=== PATIENT | male | born 1955 | race Caucasian/White ===

== ENCOUNTER 2016-05-08 16:53 | Inpatient (IN) | payer MEDICAID, MEDICARE ==
[~2016-05-08] VITALS: Ht 175.3 cm; Wt 64.8 kg
[2016-05-08] VITALS (14 sets, daily range): BP systolic 85–120; BP diastolic 32–69; PULSE 77–93; RESP 15–19; O2SAT 95–100
[~2016-05-08 16:53] MED LIST: ASPI-973 PO; CARV6.252 PO; DOCU-41 PO; FERR-83 PO; FLUO20CA25 PO; LIP40 PO; LISI-571 PO; METO25TA6 PO; MOME13HF2 IH; NITR0.4T SL; NYST1000 PO; PANT40TA3 PO; QUET50TA PO; SENN-133 PO; WARF5TAB7 PO
--- NOTE | 2016-05-08 17:00 | ED.REPORT ---
HPI-Dyspnea / Wheezing Date of Service May 08, 2016 ED Provider: Dr. Peck Pt is a 60 y/o male anticoagulated on Coumadin w/ a hx of CHF, CAD, HTN, hyperlipidemia, valve replacements, presenting to the ED via EMS due to SOB onset 1300 today. He states he is chronically short of breath. He has been generally weak for 7 days and has been unable to get out of bed. He was found to be hunched over by EMS without a radial pulse. He was initially hypotensive in the 70s but improved to 118 after normal saline. He c/o associated dyspnea on exertion, numbness of the fingertips which is new. He denies CP, bloody or melena stool. He does not smoke. Nursing Notes Stated Complaint: SOB Nursing Notes Reviewed: Yes Allergies: Coded Allergies: No Known Allergies (Verified Allergy, Unknown, 01/24/16) Scheduled Aspirin (Aspirin) 81 Mg Tablet 81 MG PO DAILY Atorvastatin (Lipitor) 40 Mg Tablet 40 MG PO HS Carvedilol (Carvedilol) 6.25 Mg Tablet 6.25 MG PO BID Ferrous Sulfate (Ferrous Sulfate) 325 Mg Tablet 325 MG PO BID Fluoxetine (Fluoxetine) 20 Mg Capsule 60 MG PO DAILY Lisinopril (Lisinopril) 5 Mg Tablet 5 MG PO DAILY Metoprolol Tartrate (Metoprolol Tartrate) 25 Mg Tablet 25 MG PO BID Nystatin (Nystatin) 100,000 Unit/1 Ml Oral.susp 100,000 UNIT PO QID Use 3 mL at a time swish and spit 4 times a day Pantoprazole DR (Pantoprazole DR) 40 Mg Tablet.dr 40 MG PO DAILY Quetiapine Fumarate (Seroquel) 50 Mg Tablet 50 MG PO BID Warfarin Sodium (Warfarin Sodium) 5 Mg Tablet 7.5 MG PO DAILY Scheduled PRN Docusate Sodium (Colace) 100 Mg Capsule 100 MG PO BID PRN PRN For Constipation Nitroglycerin SL (Nitrostat) 0.4 Mg Tab.subl 0.4 MG SL Q5MIN PRN PRN For Chest Pain Sennosides (Senna) 8.6 Mg Tablet 8.6 MG PO HS PRN PRN For Constipation Miscellaneous Medications Mometasone/Formoterol (Dulera 100 Mcg/5 Mcg Inhaler) 13 Gm Hfa.aer.ad 13 GM IH General Time Seen by MD: 17:00 Chief Complaint Shortness of breath Hx Obtained From: Patient, EMS Arrived By: Ambulance Sudden in Onset?: No Onset Occurred: 1 - 4 hours ago Symptom Duration: Since onset Severity: Current: No pain currently Severity: Maximum: No pain Recent Healthcare: Recent doctor visit, Recent testing, Previous diagnosis, Prior workup Similar Sx Previous: Yes Past Medical History Past Medical History Notes: PCP: Mary Pineda M.D. Past Medical History Angiodysplasia CHF Coronary artery disease Hep C Hypertension Mitral regurgitation Hyperlipidemia Atrial flutter Lymphoma, at age 16. Treated with chemotherapy. 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 Neurologic: Reports: Numbness Physical Exam Initial Vital Signs Vital Signs (First) Date Time Temp Pulse Resp B/P Pulse Ox O2 Delivery O2 Flow Rate FiO2 05/08/16 17:04 36.2 86 18 95/52 95 Room Air Initial VS: Reviewed, Vital signs abnormal Head / Eyes: Atraumatic, Normocephalic, PERRL ENT: Mucous membranes moist, Conjunctiva normal, No scleral icterus Abdomen / GI: Soft, Non-tender, No guarding, No rebound, No distention Extremities: Vascular intact, Neuro intact, No swelling, No tenderness Skin: Warm, Dry, No cyanosis Psychiatric: Mood/affect normal, Behavior normal, Normal thought content General/Constitutional: Awake, Alert Distress / Hydration: Positive: Distress moderate Appearance / Presentation: Positive: Frail, Icteric (mild) Thin Neck: Atraumatic, Supple, Full range of motion Respiratory / Chest: Atraumatic, Breath sounds NL, Breath sounds = bilat, No respiratory distress, No rales, No rhonchi, No wheezing, No retractions, No stridor, No chest tenderness, No chest wall deformity, No crepitus Cardiovascular: Heart rate NL, Regular rhythm, Cap refill not delayed, Peripheral circulation NL Prominent click of the aortic valve Neurologic: Oriented X3, Speech NL, No motor deficits, No sensory deficits Rectum / Perineum: Atraumatic Black melena stool Interpretation & Diagnostics Lab Results Interpretation Result Diagram: 05/08/16 1718 05/08/16 1718 Test 05/08/16 17:18 05/08/16 18:32 White Blood Count 15.6th/mm3 (3.8-10.1) Red Blood Count 2.43mil/mm3 (4.40-5.80) Hemoglobin 7.3g/dL (13.8-17.2) Hematocrit 22.4% (41.0-50.0) Mean Corpuscular Volume 92.2fL (81-100) Mean Corpuscular Hemoglobin 30.0pg (27.0-35.0) Mean Corpuscular Hemoglobin Concent 32.6% (32.0-37.0) Red Cell Distribution Width 16.0% (12.3-15.4) Platelet Count 212bil/L (150-400) Neutrophils (%) (Auto) 84.5% (40-74) Lymphocytes (%) (Auto) 8.0% (14-46) Monocytes (%) (Auto) 6.0% (4-12) Eosinophils (%) (Auto) 0.9% (0-5) Basophils (%) (Auto) 0.3% (0-3) Prothrombin Time 54.8sec (8.1-12.5) Prothromb Time International Ratio 4.96ratio Sodium Level 137mEq/L (134-144) Potassium Level 6.0mEq/L (3.5-5.2) Chloride Level 104mEq/L (97-108) Carbon Dioxide Level 18mmol/L (18-29) Blood Urea Nitrogen 49mg/dL (8-27) Creatinine 1.63mg/dL (0.76-1.27) Estimat Glomerular Filtration Rate 46mL/min (>59) Glucose Level 106mg/dL (60-99) Calcium Level 8.5mg/dL (8.5-10.1) Magnesium Level 2.2mg/dL (1.6-2.6) Total Bilirubin 0.6mg/dL (0.0-1.2) Aspartate Amino Transf (AST/SGOT) 22U/L (0-50) Alanine Aminotransferase (ALT/SGPT) 15U/L (0-44) Alkaline Phosphatase 60U/L (25-160) Total Creatine Kinase 61U/L (21-232) Creatine Kinase MB 2.1ng/mL (0.0-10.4) Creatine Kinase MB % 3.4% (0.0-5.0) Troponin T < 0.010ug/L (0.0-0.011) Pro-B-Type Natriuretic Peptide 2170pg/mL (0-210) Total Protein 6.1g/dL (6.4-8.4) Albumin 3.4g/dL (3.4-5.0) Hold Purple Top Tube Received (Received) ECG Interpretation ECG Interpretation: Sinus rhythm rate 86 Prolonged WA interval Right bundle branch block Inferior Infarct, old Time: 17:36 Interpreted by: ED physician Normal ECG Interpretation: No acute ischemic changes X-Ray Chest Interpretation View: Portable, 1 view Interpretation / Wet Read by: Wet read ED physician NL X-Ray Chest Findings: No infiltrate, No acute disease Re-Eval/Medical Decision Med Decision/Clinical Course GI bleeding with a history of both upper and lower sources, hep C, congestive heart failure and 2 mechanical heart valves on warfarin. Initial hemoglobin 7.3, INR 4.96. Patient was mildly hypotensive that seem to respond to IV fluids. Patient will be transfused in the ER 2 units PRBCs and 6 units of FFP. Additionally the patient is mildly hyperkalemic with a potassium of 6.0 and mild peaked T waves. IV calcium, IV dextrose and insulin and IV fluids were given. Patient will be admitted. GI is consulted who agrees to see the patient. Source of Hx: Old records Summary of Info: Echo 03/19/16: Interpretation Summary The left ventricle is normal in size, wall thickness, and systolic function without any focal wall motion abnormalities. Left ventricular systolic function is normal. The ejection fraction is estimated to be 55-60%. There are no obvious focal wall motion abnormalities noted but poor endocardial definition reduces the sensitivity for the detection of such. The right ventricle is normal in size and function. The right ventricular systolic pressure is estimated at 38 mmHg assuming a right atrial pressure of 8 mm Hg. The left atrium is severely dilated. Right atrial size is normal. There is a mechanical mitral valve. The mean mitral valve pressure gradient is 10 mmHg. This has increased since prior study. There is a mechanical aortic valve. The prosthetic aortic valve is well- seated. The peak aortic velocity is 339 cm/sec. The peak aortic velocity on the previous exam was 275 cm/sec. There is no other significant valvular heart disease. The aortic root is normal size. Re-Evaluation/Progress : Time of Eval: 17:45 Re-Evaluation/Progress Note: Pt rechecked. Informed pt of need for admission due to GI bleed. Pt understands and agrees with plan for admission. All questions addressed. Consultation #1: Referral / Consult Name: Shyam Ayala MD Call Returned at: 18:10 Strand Buncher Fine Wire: Agrees with eval, Agrees with plan Note: Discussed case with GI. Recommends to keep patient NPO. He will scope him in the morning. His INR must be under 1.6. He agrees with reversing Coumadin. He requests we start bowel prep tonight. Consultation #2: Referral / Consult Name: Goyo Mcfadden MD Consulted With: Hospitalist Call Returned at: 18:20 Strand Buncher Fine Wire: Will see patient, Agrees with eval, Agrees with plan, Accepts admit Counseled Regarding: Diagnosis, Lab results, Need for admission Discharge & Departure Impression: Primary Impression: Upper GI bleed Additional Impressions: Hyperkalemia Warfarin-induced coagulopathy Disposition: ADMITTED TO HOSPITAL Discharge Condition All VS Reviewed: Yes Condition: Stable Referrals: Mary Pineda MD (PCP) Crit Care Except Billable Proc Time Spent: 75-104 minutes Services Performed: Patient management by me, Time spent at bedside, Reviewing test results, Reviewing imaging, Discussing patient care, Documentation in record Critical Care Notes: See ANGEL Scrbud Attestation Portions of this note were transcribed by William Van. I, Dr. Peck personally performed the history, physical exam and medical decision-making; I reviewed and confirmed the accuracy of the information in the transcribed note. Signed by Burak Anne, 05/08/16 - [id number] copies to: Mary Pineda MD, Timothy S DO May 08, 2016 17:00 WILLIAM VAN May 08, 2016 17:10 Noel Yancey May 08, 2016 17:20
[2016-05-08] MEDS ORDERED: 0.9% Sodium Chloride 1,000 ML IV ONE ×2 (17:09→18:23)
[2016-05-08] MEDS ORDERED: Ondansetron 2 mg/mL 2 mL Inj IVPUSH ONE (17:10)
[2016-05-08 17:23] LABS: BASOPHILS % (AUTO) 0.3 % (0-3); EOSINOPHILS % (AUTO) 0.9 % (0-5); Mean Corpuscular Volume 92.2 fL (81-100); NEUTROPHILS % (AUTO) 84.5 % (40-74); Platelet Count 212 bil/L (150-400)
[2016-05-08] MEDS ORDERED: Pantoprazole 4 mg/mL 10 mL Inj IVPUSH ONE (17:40)
[2016-05-08] MEDS ORDERED: Octreotide Inj 500 MCG in 0.9% Sodium Chloride 100 ML IV ONE (17:40)
[2016-05-08] MEDS ORDERED: Pantoprazole Inj 80 MG, Pharmacy To Mix 1 EA in 0.9% Sodium Chloride 80 ML IV ONE ×2 (17:40)
[2016-05-08 17:57] LABS: Creatine Kinase 61 U/L (21-232); Magnesium 2.2 mg/dL (1.6-2.6)
[2016-05-08 18:00] LABS: TROPONIN T < 0.010 ug/L (0.0-0.011)
[2016-05-08 18:14] LABS: INR 4.96 ratio
[2016-05-08] MEDS ORDERED: PEG/Electrolytes 4,000 mL Solution PO ONE (18:15)
[2016-05-08] MEDS ORDERED: Calcium GLUCOnate 10% (Gm) 1 Gm/10 mL Inj IVPUSH PRN (18:25)
[2016-05-08] MEDS ORDERED: Insulin Human REGular-Omnicell 100 Unit/mL IV ONE (18:25)
[2016-05-08] MEDS ORDERED: Phytonadione (Adult) 10 MG in Dextrose 5%-Pha MIX 50 ML IV ONE (18:25)
[2016-05-08] MEDS ORDERED: Furosemide 10 mg/mL 2 mL Inj IVPUSH ONE (18:35)
--- NOTE | 2016-05-08 18:47 | PCM.HPMED ---
Subjective Date of Service May 08, 2016 Primary Provider: Admitting Physician: Primary Care Physician: Mary Pineda MD Attending Physician: Chief Complaint: SOB onset 1300 today. He states he is chronically short of breath. History of Present Illness: Pt is a 60 y/o male anticoagulated on Coumadin w/ a hx of CHF, CAD, HTN, hyperlipidemia, valve replacements, presenting to the ED via EMS due to SOB onset 1300 today. He states he is chronically short of breath. He has been generally weak for 7 days and has been unable to get out of bed. He was found to be hunched over by EMS without a radial pulse. He was initially hypotensive in the 70s but improved to 118 after normal saline. He c/o associated dyspnea on exertion, numbness of the fingertips which is new. He denies CP, bloody or melena stool. He does not smoke. Review of Systems: Gen.: No fevers chills weight loss weight gain, he actually was thinking about how happy he was just a day ago that he was feeling good Eyes: no visual disturbances or blurring vision HEENT: No nose/throat drainage, no pain in ears or throat, no hearing loss Lymph: No lymph nodes noted Cardiac: No chest pain, orthopnea, PND, palpitations , pedal edema or sudden onset shortness of breath just today Pulmonary: no cough, wheezing or bringing up of sputum GI: No anorexia nausea vomiting blood or black in the stoolfamily history she noted some loose stool where he is normally constipated : no dysuria hematuria urinary frequency or decrease in urine output Musculoskeletal: Joint swelling no joint pain no new muscle aches or back pain Neuro: No syncope, seizures no loss of consciousness no new focal weakness, numbness or tingling Psychiatric: New new anxiety insomnia or depression Endocrine: No new heat or cold intolerances polyuria or polydipsia Hematology: No lymphadenopathy or easy bleeding or bruising noted skin: No new rashes, stasis dermatitis Allergies Coded Allergies: No Known Allergies (Verified Allergy, Unknown, 05/08/16) Home Medications Aspirin (Aspirin) 81 Mg Tablet 81 MG PO DAILY Atorvastatin (Lipitor) 40 Mg Tablet 40 MG PO HS Carvedilol (Carvedilol) 6.25 Mg Tablet 6.25 MG PO BID Ferrous Sulfate (Ferrous Sulfate) 325 Mg Tablet 325 MG PO BID Fluoxetine (Fluoxetine) 20 Mg Capsule 60 MG PO DAILY Lisinopril (Lisinopril) 5 Mg Tablet 5 MG PO DAILY Metoprolol Tartrate (Metoprolol Tartrate) 25 Mg Tablet 25 MG PO BID Nystatin (Nystatin) 100,000 Unit/1 Ml Oral.susp 100,000 UNIT PO QID Use 3 mL at a time swish and spit 4 times a day Pantoprazole DR (Pantoprazole DR) 40 Mg Tablet.dr 40 MG PO DAILY Quetiapine Fumarate (Seroquel) 50 Mg Tablet 50 MG PO BID Warfarin Sodium (Warfarin Sodium) 5 Mg Tablet 7.5 MG PO DAILY Scheduled PRN Docusate Sodium (Colace) 100 Mg Capsule 100 MG PO BID PRN PRN For Constipation Nitroglycerin SL (Nitrostat) 0.4 Mg Tab.subl 0.4 MG SL Q5MIN PRN PRN For Chest Pain Sennosides (Senna) 8.6 Mg Tablet 8.6 MG PO HS PRN PRN For Constipation PMH 1. Status post aortic and mitral valve replacement, [facility], in 2012 on warfarin. 2. Coronary disease with one-vessel bypass grafting in 2012. 3. Hypertension. 4. Congestive heart failure, chronic, systolic per records with ejection fraction 45% to 50%. 5. Hepatitis C. 6. Chronic iron-deficiency anemia with angiodysplasia as above. 7. Depression. 8. Atrial flutter. 9. 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 10. 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 11. History of IV heroin use. 12. History of alcohol abuse. 13. Hyperlipidemia. 14. Gastroesophageal reflux disease. 15. Chronic kidney disease of uncertain baseline. 16. Left upper lobe pneumonia with sepsis, acute kidney injury, and pancytopenia in September 2013. PAST SURGICAL HISTORY: 1. Coronary artery bypass grafting with aortic and mitral valve replacement [facility] in 2012. 2. Tonsillectomy. 3. Right eye surgery for lymphoma. ALLERGIES: None. HOME MEDICATIONS: Uncertain. SOCIAL HISTORY: The patient lives with his mother. He is independent with ADLs and ambulation. He is on disability for his medical issues. He does not smoke or use alcohol. He smokes marijuana occasionally. FAMILY HISTORY: Mother has diabetes. Social History Hx Alcohol Use: No (NOT IN 8 YEARS) Hx Substance Use: No Hx Tobacco Use: Yes (1/2 pack/day) Smoking Status: Current Every Day Smoker Exam Vital Signs Vital Sign - Last Date Time Temp Pulse Resp B/P Pulse Ox O2 Delivery O2 Flow Rate FiO2 05/08/16 17:04 36.2 86 18 95/52 95 Room Air Exam Gen.- A+ O 3 no apparent distress.thin male lying in [facility] Eyes- open conjunctiva clear, pupils equal nonicteric, subconjunctival hemorrhage on the left external ENT- ears normal, nose normal Neck- supple/trach midline, JVD 3 cm CVS- RRR no murmur or gallop, there is quiet expiratory murmur and 2 mechanical heart sounds S1 and S2 Lungs CTA no accessory muscle usage no evidence of respiratory distress GI- NABS/NT soft Musc- moving 4 ,no obvious deformity Neuro- cranial nerves II through XII intact to gross examination, nonfocal Skin- warm and dry Psych- pleasant and appropriate,becomes a bit tearful when he tells a story Lab and Diagnostics Labs LFTs wnl trop <0.010, bnp 2170 Result Diagram: 05/08/16 1718 05/08/16 1718 X-Rays, CTs and MRIs CXR No acute cardio pulmonary disease. 12-lead ECG EKG sinus rate 86, old inf infarct [id number] perosnally reviewed Cardiac Echo Impressions 03/19/16 The left ventricle is normal in size, wall thickness, and systolic function without any focal wall motion abnormalities. Left ventricular systolic function is normal. The ejection fraction is estimated to be 55-60%. There are no obvious focal wall motion abnormalities noted but poor endocardial definition reduces the sensitivity for the detection of such. The right ventricle is normal in size and function. The right ventricular systolic pressure is estimated at 38 mmHg assuming a right atrial pressure of 8 mm Hg. The left atrium is severely dilated. Right atrial size is normal. There is a mechanical mitral valve. The mean mitral valve pressure gradient is 10 mmHg. This has increased since prior study. There is a mechanical aortic valve. The prosthetic aortic valve is well- seated. The peak aortic velocity is 339 cm/sec. The peak aortic velocity on the previous exam was 275 cm/sec. There is no other significant valvular heart disease. The aortic root is normal size. Assessment & Plan 60yo male with acute/chronic dyspnea found to be profoundly anemic. No overt events of melena/hematochezia but patient has a history of angiodysplasia and blood loss from the gut that has yet to be identified. 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 If there is evidence of ongoing blood loss I would recommend a CT agio or tagged RBC scan will to see where the contrast or blood is leaking into the bowel. For now I think the patient has been placed on an octreotide drip presumably with consultation with GI. I would place the patient on a PPI drip however IV twice a day is considered sufficient do not know how to place it within this computer system. unfortunate soul who was treated with high dose radiation for Hodgkin's lymphoma in childhood which caused valvular disease causing the valve replacement. 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 Not from IV drug abuse. And now is having recurrence of Hodgkin's lymphoma in his groin. He is tearful because he is having multiple episodes with his GI bleeding and elevated warfarin levels that he is having difficulty controlling. I wonder if he might not be a candidate for a factor X A inhibitor. I would consult with cardiology to see if this is even an option with mechanical valves but given that they seem to be superior to warfarin I think is probably a possibility. GIB- source has been historically cryptic, patient on pantoprazole IV at least twice a day if not on a drip, and apparently has been placed on an octreotide drip hopefully with the direction of GI is they are more familiar with the source of bleeding Acute blood loss anemia-patient transfused already but I will go ahead and check anemia studies and give IV iron TRINIDAD/CKD3- baseline 1.3, gentle hydration as the patient's already in heart failure although not presumably symptomatic Hyperkalemia- K+ 6.0, we will follow this level and determine whether further intervention needs to be done other than IV fluids. Patient got a dose of Kayexalate in the emergency room Acute diastolic CHF-by numbers but if the patient's on room air continued simply to follow thisCurry utilize Lasix when the patient becomes dyspneic as he probably will as we volume in him Mech AVR?MVR- INR goal 2.5-3.5, patient is not actively bleeding I would place the patient on a heparin drip while not therapeutic on Coumadin HCV-I see no contraindication to continuing the patient's normal home medication Prophylaxis-DVT SCDs only other anticoagulation is contraindicated but will be resumed as soon as possible due to valves, GI patient is on PPI Disposition patient's a full code from home Patient's hemoglobin dropped while being transfused for from 7 or 8-5.4 I am going ahead and ordering 2 more units of blood to in reserve and some more FFP. Will not be surprised if he needs a little bit of furosemide in the interval but I am not ordering it automatically as the patient is already hypotensive when fluids are stopped. He says he has got mouth pains when he is transfused for unclear reasons so I went ahead and prescribed him some morphine this evening. Goyo Mcfadden MD May 08, 2016 18:46
[2016-05-08] MEDS ORDERED: 0.9% Sodium Chloride 500 ML IV ONE (18:50)
--- NOTE | 2016-05-08 19:00 | DRSVH ---
PROCEDURE: X-RAY CHEST ONE VIEW, PORTABLE ([id number]) INDICATIONS: dyspnea TECHNIQUE: One view of the chest was acquired. COMPARISON: [facility], CT, CT CHEST WO CON, 04/02/2016, 14:53. [facility], CR, XR CHEST 1VW (PORTABLE), 01/23/2016, 22:19. FINDINGS: Surgical changes and devices: Sternotomy and prosthetic heart valve. Lungs and pleura: No pleural effusions or pneumothorax. Lungs are clear. Mediastinum: Mediastinal contours appear normal. Heart size is normal. Bones and chest wall: No suspicious bony lesions. Overlying soft tissues appear unremarkable. IMPRESSION: No acute cardio pulmonary disease. Dictated by: Suly Cao M.D. on 05/08/2016 at 18:58 Approved by: Suly Cao M.D. on 05/08/2016 at 18:58
[2016-05-08] MEDS: Dextrose 5% 0.9% NaCl 1,000 ML IV SCH (19:40)
[2016-05-08] MEDS ORDERED: RES30 PO (20:30)
[2016-05-08] MEDS ORDERED: ACLI400A2 INH (20:30)
[2016-05-08] MEDS ORDERED: RANI150C4 PO (20:30)
[2016-05-08] MEDS ORDERED: SOFO1TAB PO (20:30)
[2016-05-08] MEDS ORDERED: FUR20 PO (20:30)
[2016-05-08] MEDS ORDERED: MOME13HF INH (20:30)
[2016-05-08] MEDS ORDERED: TRAZ-118 PO (20:30)
[2016-05-08] MEDS ORDERED: WARF5TAB PO (20:30)
[2016-05-08] MEDS: 0.9% Sodium Chloride 1,000 ML IV SCH (21:19)
[2016-05-08] MEDS ORDERED: Polyethylene Glycol (PEG) 17 Gm Powder PO PRN (21:20)
[2016-05-08] MEDS ORDERED: Ondansetron 2 mg/mL 2 mL Inj IVPUSH PRN (21:20)
[2016-05-08] MEDS ORDERED: Alum-Mag Hydrox-Simeth 30 mL Suspension PO PRN (21:20)
[2016-05-08] MEDS ORDERED: 0.9% Sodium Chloride 250 ML ONE (21:27)
[2016-05-08 22:54] LABS: INR 1.6 ratio
[2016-05-09] VITALS (33 sets, daily range): BP systolic 62–179; BP diastolic 38–80; PULSE 78–107; RESP 14–22; O2SAT 95–100
[2016-05-09] MEDS: Sodium Chloride LOK Flush 10 mL Syringe IVFLUSH SCH ×4 (00:32→20:57)
[2016-05-09] MEDS ORDERED: 0.9% Sodium Chloride 250 ML IV SCH ×4 (01:20→11:20)
--- NOTE | 2016-05-09 02:26 | CONS ---
[address] [address] CONSULTATION REPORT PATIENT: ZOILA ALFRED : 1955 MR#: [id number] ADMIT: 05/08/2016 JOB ID: [id number] DATE OF SERVICE: 05/08/2016 REASON FOR CONSULTATION: Melena and anemia. HISTORY OF PRESENT ILLNESS: A 60-year-old male with a history of CHF, hepatitis C, currently on Epclusa for the past three weeks, history of hypertension, coronary artery disease, AVMs on colonoscopy in the sigmoid colon and ascending colon, mitral regurgitation, lymphoma at the age of 16, currently on chemotherapy, AFlutter, hyperlipidemia, CABG in the past, multiple valve replacements, on Coumadin, who presents here for consultation for melena and anemia. Patient felt short of breath and came to the emergency department on May 08, 2016. The patient was found to have a hemoglobin of 7.3 upon admission. His prior hemoglobin on April 27, 2016, was 10.9. Patient's white count was 15.6, hematocrit 22, MCV 92 and platelet count 212. PT of 54.8, INR of 4.96. BUN of 49 with a creatinine 1.6. The patient's proBNP was 2170. The patient states that he had seen melenic stools for the past one week. The patient states he had an EGD in 2012 that was normal. I have no records. The patient had a colonoscopy that was performed on December 08, 2014, which showed AVMs in the ascending colon and in the sigmoid colon for which he underwent APC. The patient denies family history of colon cancer, inflammatory bowel disease, or celiac disease. 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 PAST MEDICAL HISTORY: As stated above. PAST SURGERIES: As stated above. MEDICATIONS: At home: Aspirin, Lipitor, carvedilol, ferrous sulfate, fluoxetine, lisinopril, metoprolol, nystatin, pantoprazole 40 mg daily, Seroquel, Coumadin. ALLERGIES: No known drug allergies. SOCIAL HISTORY: He smokes every day. No current IV drug use, in recovery with THC, but has a history of drug use in the past. No alcohol per the patient. 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 FAMILY HISTORY: Negative for colon cancer, inflammatory bowel disease, or celiac disease. REVIEW OF SYSTEMS: The patient denies headache, blurred vision, nausea, vomiting. Positive for shortness of breath. No chest pain, abdominal pain, skin rash, joint pain. PHYSICAL EXAMINATION: Vital signs upon presentation: Temperature is 36.3, pulse 86, blood pressure 120/69, respiratory rate 16, satting 97% on room air. General: In no acute distress. Head: No scars. Eyes: Anicteric. Throat: Supple. Lungs: Clear to auscultation bilaterally. Cardiovascular: Regular rhythm and rate. Abdomen is soft, nondistended, nontender. Normoactive bowel sounds. Extremities: No cyanosis, clubbing or edema. LABORATORIES: Show sodium 137, potassium 6.0, chloride 104, bicarb 18, BUN 49, creatinine 1.63, glucose 106, calcium 8.5, magnesium 2.2, total bili 0.6, AST 22, ALT 15, alk phos 60. Troponin is negative. ProBNP 2170. Total protein 6.1, albumin 3.4, PT 54.8, INR 4.96. White count 15.6, hemoglobin 7.3, hematocrit 22, platelet count of 212, MCV of 92. The patient had an abdominal ultrasound performed March 16, 2016, which showed increased hepatic echogenicity related to a fatty liver and splenomegaly. Patient has mid abdominal aortic aneurysm measuring 3.5 cm in diameter. ASSESSMENT AND PLAN: This is a 60-year-old male with history of multiple valve surgeries in the heart, aortic valve regurgitation and mitral valve regurgitation on Coumadin, arteriovenous malformations on colonoscopy in the ascending colon and sigmoid colon, history of coronary artery bypass graft, congestive heart failure, coronary artery disease, hepatitis C currently on Epclusa for three weeks now, hypertension, mitral regurgitation, hyperlipidemia, atrial flutter, Burkitt lymphoma treated with chemotherapy in the past, who presents for consultation for melena and drop in hemoglobin from 10 to now 7.3. Differential diagnosis includes peptic ulcer disease versus gastritis versus esophagitis versus duodenitis versus pathology in the right-sided colon such as an AVM. The patient will need an esophagogastroduodenoscopy and colonoscopy with anesthesia given his melena and drop in hemoglobin. In order to do this, the patient's INR must be reversed to a of 1.5 or lower. Given the fact the patient's INR is 4.96, it is unlikely his INR will be down to 1.5 by tomorrow morning. RECOMMENDATIONS: 1. N.p.o. except for meds. 2. Protonix drip. 3. Reverse INR to a goal of less than 1.5. Once this is achieved, then GoLYTELY prep for EGD and colonoscopy with anesthesia to evaluate his melena and drop in hemoglobin. 4. Transfuse packed red blood cells per hospitalist team as needed. 5. Hold anticoagulation given melena and drop in hemoglobin.
[2016-05-09] MEDS ORDERED: Pantoprazole 8 mg/Hr Infusion IV SCH ×2 (04:00)
[2016-05-09] MEDS: Dextrose 5% 0.9% NaCl 1,000 ML IV SCH ×2 (04:05→09:00)
[2016-05-09] MEDS ORDERED: ERGOTAMINE PO ONE (05:20)
[2016-05-09] MEDS ORDERED: CAFFEINE PO ONE (05:20)
[2016-05-09] MEDS ORDERED: Butalbital-Acet-Caffeine Tablet PO ONE (06:20)
[2016-05-09] MEDS ORDERED: Pantoprazole 4 mg/mL 10 mL Inj IVPUSH SCH (07:30)
[2016-05-09] MEDS: EPCLUSA PO SCH (08:30)
[2016-05-09] MEDS ORDERED: Pantoprazole 40 mg ER24 Tablet PO SCH (08:30)
--- NOTE | 2016-05-09 08:40 | PCM.PNSURG ---
Subjective Date of Service: May 09, 2016 Date of Service: May 09, 2016 Visit Information: Subjective: inr 1.6 this am. hb 6.3. no overt signs gi bleed. goltyetyl prep tonight for egd /colon mac tomorrow. Postop General: No Complaints Objective Vital Sign- Last 8 Hours Date Time Temp Pulse Resp B/P Pulse Ox O2 Delivery O2 Flow Rate FiO2 05/09/16 07:19 37.1 94 19 91/56 05/09/16 06:45 37.0 100 22 91/57 05/09/16 06:31 37.2 101 21 93/60 05/09/16 06:15 36.8 105 22 96/54 05/09/16 05:54 37.1 102 21 99/61 05/09/16 04:30 36.6 102 20 112/66 05/09/16 04:15 37.0 100 20 98/58 05/09/16 04:05 36.9 95 17 106/62 05/09/16 03:45 37.0 94 20 125/68 05/09/16 03:30 37.1 89 19 125/71 05/09/16 03:15 36.9 85 16 111/58 05/09/16 03:02 36.9 88 17 98/57 05/09/16 02:47 37.0 87 19 90/48 05/09/16 02:30 37.0 86 16 94/53 05/09/16 02:16 36.9 99 20 93/57 05/09/16 00:45 37.0 85 19 110/54 Intake and Output- Last 8 Hour 05/09/16 Cumulative From/Thru 07:00 05/08/16 17:04 - 05/09/16 06:31 Intake Total 2416 ml 4709 ml Output Total 750 ml 750 ml Balance 1666 ml 3959 ml Intake Oral 200 ml 200 ml IV Total 936 ml 2676 ml Packed Cells 1280 ml 1833 ml Output Urine Total 750 ml 750 ml General: Alert Neck: Supple Lungs: Clear to Auscultation Heart: Exam Unremarkable Abdomen: Benign, Soft, Non-tender, Non-distended, Normoactive bowel tones Extremities: Distal Pulses Palpable Result Diagram: 05/09/16 0439 05/09/16 0439 Assessment & Plan Impression This is a 60-year-old male with history of multiple valve surgeries in the heart, aortic valve regurgitation and mitral valve regurgitation on Coumadin, arteriovenous malformations on colonoscopy in the ascending colon and sigmoid colon, history of coronary artery bypass graft, congestive heart failure , coronary artery disease, hepatitis C currently on Epclusa for three weeks now , hypertension, mitral regurgitation, hyperlipidemia, atrial flutter, Burkitt lymphoma treated with chemotherapy inthe past, who presents for consultation for melena and drop in hemoglobin from 10 to now 7.3. Differential diagnosis includes peptic ulcer disease versus gastritis versus esophagitis versus duodenitis versus pathology in the right-sided colon such as an AVM. The patient will need an esophagogastroduodenoscopy and colonoscopy with anesthesia given his melena and drop in hemoglobin. In order to do this, the patient's INR must be reversed to 1.5 or lower. Recs 1. N.p.o. except for meds. 2. Protonix drip. 3. GoLYTELY prep tonight for EGD and colonoscopy with anesthesia to evaluate his melena and drop in hemoglobin scheduled for 05/10. 4. Transfuse packed red blood cells per hospitalist team as needed. 5. Hold anticoagulation given melena and drop in hemoglobin. will continue to follow Problems: Shyam Ayala MD May 09, 2016 08:40
[2016-05-09 08:54] LABS: INR 1.2 ratio
[2016-05-09] MEDS: Tiotropium 18mcg/Cap 5 Capsule Inhaler Kit INHALATION SCH (09:05)
[2016-05-09] MEDS: Fluticasone-Salmererol 250-50 Inhaler INHALATION SCH ×2 (09:06→20:30)
[2016-05-09] MEDS: 0.9% Sodium Chloride 1,000 ML IV SCH ×2 (09:08→16:25)
[2016-05-09] MEDS ORDERED: 0.9% Sodium Chloride 250 ML IV ONE (09:20)
[2016-05-09] MEDS ORDERED: Sodium Chloride LOK Flush 10 mL Syringe IVFLUSH PRN ×2 (10:00)
[2016-05-09] MEDS ORDERED: Norepineph 8,000 mCg/250 mL NS 8,000 MCG in IV Premix 1 EACH IV PRN (10:00)
--- NOTE | 2016-05-09 11:23 | DRSVH ---
PROCEDURE: CT ABDOMEN AND PELVIS WITHOUT CONTRAST ([id number]) INDICATIONS: DROPPING PRESSURES TECHNIQUE: Noncontrast 5 mm thick sections acquired from the diaphragms to the symphysis. 5 mm coronal and sagi ttal reformats were then performed. For radiation dose reduction, the following was used: automated exposure control, adjustment of mA and/or kV according to patient size. COMPARISON: [facility], CT, CT CHEST ABD PELVIS W CON, 02/21/2016, 13:11. FINDINGS: Image quality: Excellent. ABDOMEN: Lung bases: Small right pleural effusion. Mild dependent bibasilar atelectasis. Solid organs: Liver is within normal limits. There is a large amount of subscapular high density mat erial at the lateral aspect of the spleen, measuring roughly 17 cm anteroposterior by 11 cm transvers e by 20 cm craniocaudal, consistent with subcapsular hemorrhage. Gallbladder is within normal limits. Pancreas is normal in contours. No adrenal nodules. Kidneys are normal in size, without hydroneph rosis or nephrolithiasis. Peritoneum and bowel: Unenhanced bowel loops demonstrate normal wall thickness and caliber. There is a large amount of intermediate density ascites. There is ill-defined hypodensity within the left low er quadrant of the abdomen posteriorly, measuring roughly 13 cm anteroposterior by 9 cm transverse by 4 cm cranial caudal, consistent with focal clot. Nodes and vessels: No retroperitoneal or mesenteric adenopathy by size criteria. IVC is within conner l limits. There is mild aneurysmal dilatation of the infrarenal abdominal aorta, measuring 40 mm shor t axis. Miscellaneous: No ventral hernias. PELVIS: Genitourinary: Bladder wall thickness is normal. The right hemipelvic mass at the right posterolate ral aspect of the urinary bladder, seen on the prior CT examination is not well-seen on the current e xamination. Miscellaneous: No inguinal hernias or adenopathy. Bones: No suspicious bony lesions. No vertebral body compression fractures. IMPRESSION: 1. Large amount of hemoperitoneum, which appears to be arising from the spleen, as there is a large a mount of subcapsular splenic hemorrhage, as well as a clot inferior to the spleen. 2. Small right pleural effusion. 3. Mild aneurysmal dilatation of the infrarenal abdominal aorta. 4. The previously seen mass adjacent to the right posterior urinary bladder is suboptimally evaluated on the current examination. 5. Findings discussed with Dr. Ayala on 05.09.17 at 1100 hrs. Dictated by: Dede Prado M.D. on 05/09/2016 at 11:21 Approved by: Dede Prado M.D. on 05/09/2016 at 11:21
[2016-05-09] MEDS ORDERED: fentaNYL-PF 50 mCg/mL 2 mL Inj ONE (11:27)
[2016-05-09] MEDS ORDERED: Lactated Ringer's 1,000 ML IV ONE (11:55)
--- NOTE | 2016-05-09 12:11 | CONS ---
[address] [address] CONSULTATION REPORT PATIENT: ZOILA ALFRED : 1955 MR#: [id number] ADMIT: 05/08/2016 JOB ID: [id number] DATE OF SERVICE: 05/09/2016 SURGICAL CONSULTATION: REASON FOR CONSULTATION: The patient is seen in consultation at the request of the Critical Care team regarding urgent evaluation for hemoperitoneum with an actively bleeding spleen. HISTORY OF PRESENT ILLNESS: The patient is a 60-year-old man with medical comorbidities including both aortic and mitral mechanical valves, for which he takes Coumadin. Reportedly, he has a history of multiple previous GI bleeds. Yesterday, he was admitted to the hospital with an acute exacerbation of shortness of breath. He does carry a diagnosis of COPD. However, he was also noted to have melena and anemia. His admission hemoglobin yesterday evening was 7.3. Overnight, he dropped to 5.8. He has received multiple transfusions with minimal improvement. A CT scan was obtained this morning which demonstrates a large amount of hemoperitoneum, which appears to be arising from the spleen. There was a large amount of rema-splenic hemorrhage. There is also hematoma inferior to the spleen. The study was noncontrast, given a history of chronic kidney disease. Given these findings, I was urgently consulted. The patient does endorse some abdominal discomfort, as well as left shoulder pain. He is having some dizziness and lightheadedness. He has received a total of 7 units of FFP for an initial INR of 4.96. This morning at 8:30 it was 1.2. He had also received 5 units of packed red blood cells and is currently has a sixth hanging. Cryoprecipitate has been ordered, as well as platelets. At this point, he is maintaining his blood pressure with systolics in the 110s and a heart rate in the low 100s. The patient denies any recent history of trauma, falls, or injury to his abdomen. PAST MEDICAL HISTORY: 1. Hypertension. 2. COPD. 3. CHF with an EF estimated to be 45% to 50%. 4. Hep C. 5. Mechanical aortic valve. 6. Mechanical mitral valve. 7. Atrial flutter. 8. GERD. 9. Chronic kidney disease. 10. History of IV heroin use. PAST SURGICAL HISTORY: 1. Mechanical aortic and mitral valves. 2. The patient denies any abdominal operations. MEDICATIONS: Current medications reviewed. ALLERGIES: The patient has no known drug allergies. SOCIAL: He lives locally. 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 He quit smoking in December. He denies any alcohol or illicit drug use. REVIEW OF SYSTEMS: Full review of systems is obtained as per the HPI. PHYSICAL EXAMINATION: Vital signs: He is currently afebrile with temperature 36.4 degrees. His blood pressure is 114/62. He has a heart rate of 104 beats per minute. His respiratory rate is 22 breaths per minute. In general, he appears pale and weak. Cardiovascular: Sinus tachycardia. Pulmonary: His lungs are clear to auscultation bilaterally. Vascular: No carotid bruit. Neck: No thyromegaly. Lymphs: There is no cervical lymphadenopathy. GI: His abdomen is distended and diffusely mildly tender to palpation. Extremities pale and cool. Neuro is grossly intact. Psych is pleasant appropriate. LABORATORIES: His most recent INR this morning is 1.2. His most recent creatinine was 1.51, down from 1.63 yesterday afternoon. His lactic acid this morning was 2.5. His albumin was 3.3. His most recent H and H demonstrated a hemoglobin of 5.1 and hematocrit of 15.7. IMAGING: CT scan of the abdomen and pelvis is personally reviewed and as per the HPI. ASSESSMENT AND PLAN: This is a 60-year-old man with multiple medical morbidities, on anticoagulation for mechanical aortic and mitral valves, who is clearly exsanguinating from his spleen. I reviewed the situation with the patient and recommended urgent exploratory laparotomy and splenectomy. Given his significant comorbidities, there is a significant risk for prolonged recovery or even mortality. I discussed the possibility of requiring prolonged postoperative ventilation support. He understands the urgent nature of the situation and consented to go to the operating room immediately. YOHANNES
[2016-05-09] MEDS ORDERED: Succinylcholine Chloride 20 mg/mL 5 mL Inj ONE (12:46)
[2016-05-09] MEDS ORDERED: Rocuronium 10 mg/mL 5 mL Inj ONE (12:46)
[2016-05-09] MEDS ORDERED: Phenylephrine 10,000 mCg/mL Inj ONE (12:46)
--- NOTE | 2016-05-09 12:48 | PCM.HPANE ---
Patient Data Date of Service: May 09, 2016 Surgeon Admitting Provider:Goyo Mcfadden MD Attending Provider:Goyo Mcfadden MD Primary Care Physician:Mary Pineda MD Other Provider: Reason for Visit Upper Gi Bleed Ht/WT & BMI Height (Feet): 5 Height (Inches): 9.00 Weight (Kilograms): 36.300 Body Mass Index 11.85 Allergies Coded Allergies: No Known Allergies (Verified Allergy, Unknown, 05/08/16) Past Anesthesia History Anesthesia History: Denies:: Abnormal Airway, Anesthesia Reactions, Difficult Intubation, Fam Anesthesia Reaction, Fam Malignant Hypertherm, Malignant Hyperthermia Diabetes History Hx Diabetes?: No Current Bedside Blood Glucose: 123 MRSA MRSA: No Medications Blood Thinner: Aspirin, Coumadin, Lovenox Reported Medications Aclidinium Galloway (Tudorza Pressair)400 Mcg Aer.pow.ba1 Puff INH BID #1 05/08/16 Mometasone/Formoterol (Dulera 200 Mcg/5 Mcg Inhaler)13 Gm Hfa.aer.ad2 Puffs INH BID #13 05/08/16 Temazepam 30 Mg Cap30 Mg PO HS #30 05/08/16 Trazodone 100 Mg Lfufua368 Mg PO HS #60 05/08/16 Sofosbuvir/Velpatasvir (Epclusa 400 mg-100 mg Tablet)400 Mg-100 Mg Tablet1 Each PO DAILY 05/08/16 Ranitidine 150 Mg Thtuovn820 Mg PO DAILY PRN For Dyspepsia or Heartburn Ref 0 05/08/16 Warfarin Sodium (Coumadin)5 Mg Tablet5 Mg PO every other day #45 05/08/16 Furosemide 20 Mg Tab20 Mg PO DAILY 30 Days Ref 0 05/08/16 Docusate Sodium (Colace)100 Mg Crcvxcj108 Mg PO BID PRN For Constipation Ref 0 03/08/16 Quetiapine Fumarate (Seroquel)50 Mg Bozzvq93 Mg PO BID PRN For Anxiety Ref 0 03/08/16 Aspirin 81 Mg Dtpbso62 Mg PO every other day Ref 0 03/08/16 Warfarin Sodium 5 Mg Tablet7.5 Mg PO every other day 30 Days Ref 0 12/06/14 Atorvastatin (Lipitor)40 Mg Jyhegc44 Mg PO HS Ref 0 12/06/[address] 40 Mg Tablet.dr40 Mg PO DAILY Ref 0 12/06/14 Lisinopril 5 Mg Tablet5 Mg PO DAILY #30 TABLET Ref 0 12/06/14 Fluoxetine 20 Mg Gmovvpk20 Mg PO DAILY Ref 0 12/06/14 Nitroglycerin SL (Nitrostat)0.4 Mg Tab.subl0.4 Mg SL Q5MIN PRN For Chest Pain # 1 BOTTLE 12/06/14 Carvedilol 6.25 Mg Tablet6.25 Mg PO BID Ref 0 12/06/14 Ferrous Sulfate 325 Mg Kctizr112 Mg PO BID 30 Days Ref 0 12/06/14 Discontinued Reported Medications Sennosides (Senna)8.6 Mg Tablet8.6 Mg PO HS PRN For Constipation 03/08/16 Metoprolol Tartrate 25 Mg Aoqnzj67 Mg PO BID 30 Days Ref 0 03/08/16 Mometasone/Formoterol (Dulera 100 Mcg/5 Mcg Inhaler)13 Gm Hfa.aer.ad13 Gm IH 07/06/15 Discontinued Scripts Nystatin 100,000 Unit/1 Ml Oral.uidm467,000 Unit PO QID #120 ML Use 3 mL at a time swish and spit 4 times a day Prov:Ulysses Quinteros MD 01/24/16 History History of ENT Problems?: Yes HEENT History: Positive for:: Sinus Problem (mild symptoms of seasonal allergies) Denies:: Abnormal Airway Cataracts Difficult Intubation Dysphagia Hearing Problem Hx of Heart Problems?: Yes Cardiovascular History: Positive for:: Cardiac Surgery (CABG August, 2 Valves replaced.) Chest Pain Heart Murmur Hypertension Valvular Heart Disease Denies:: AICD Atrial Fibrillation Congestive Heart Failure Edema Irregular Heartbeat Pacemaker Thrombophlebitis Hx of Respiratory Problem?: Yes Respiratory History: Positive for:: Asthma Chest Surgery (chest tube august 2012) Dyspnea Hemoptysis (Pt admits to expectorating bloody sputum last 5-6 days (old note)) Denies:: COPD Cough Emphysema Pneumonia Tuberculosis Hx Neurologic Problems?: No Neurological History: Denies:: Alzheimer's Disease CVA Dementia Dizziness Headaches Parkinson's Disease Seizures Hx of GI Problems?: Yes Gastrointestinal History: Positive for:: Gastroesphageal Reflux Gastrointestinal Bleeding (jsut rectal) Heartburn Hepatitis Rectal Bleeding (x2 and this admit) Denies:: Cirrhosis Diverticulitis Hiatal Hernia Hx of Problems?: No Genitourinary History: Positive for:: Urinary Tract Infection Denies:: HX of Hemodialysis Kidney Stones HX of Peritoneal Dialysis: No Male Hx: Denies:: Prostate Problems (biopsy in 2007 negitive for CA) Scrotal Mass Testicular Surgery Hx Musculoskeletal Problems?: No Musculoskeletal History: Denies:: Back Injury Joint Replacement Musculoskeletal Trauma Hx of Psycho/Social Problems?: Yes Psycho Social History: Positive for:: Anxiety Hx Depression Denies:: Bipolar Disorder Suicide Attempt Hx Surgeries?: Yes (CABG 08/2012, eye sugery for CA; Heart valve replaced) Hx Any Other Health Problems?: Yes Other History: Positive for:: Cancer (LYMPHOMA AT 16YRS, Cancer behind Rt Eye 2006, 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 Blood Transfusions Denies:: Blood Transfuse Reaction Hx Diabetes: NoBedside Blood Glucose: 123 Hx Alcohol Use: NoHx Substance Use: No Smoking Status: Current Every Day Smoker Have You Smoked inLast 12 mo: No (last december) Stop/Bang Treated for Sleep Apnea?: No Do You Have a CPAP Machine?: No S-Snoring: Do You Snore Loudly: Yes T-Tired: feel tired, fatigued: Yes O-Obsered: Observed not breath: No P-Blood Pressure: treated: Yes B- Body Mass Index > 35 kg/m2: No A- Age over 50: Yes N- Neck Large Circumference: No G- Gender Male: Yes KATLIN Total Score: 4 KATLIN Risk Assessment: High Risk, =/>3 Yes KATLIN Category 2: Yes Risk Assessment Category Category 1A: Patient has history of documented sleep apnea, and HAS NOT received any narcotic, sedative or anesthesia administration during this stay. Category 1B: Patient has history of documented sleep apnea, and HAS received any narcotic , sedative or anesthesia administration during this stay Category 2: Patient has SUSPECTED Obstructive Sleep Apnea, and HAS received any narcotic , sedative or anesthesia administration during this stay. Category 3: Patient has SUSPECTED Obstructive Sleep Apnea and HAS NOT received narcotic, sedative or anesthesia administration during this stay. Category 4: Outpatient in Procedural Areas with known sleep apnea or who screen positive for High Risk via the STOP/BANG questionnaire. Exam Exam Vital Signs Vital Signs Date Time Temp Pulse Resp B/P Pulse Ox O2 Delivery O2 Flow Rate FiO2 05/09/16 11:30 36.4 107 21 117/59 05/09/16 11:15 36.4 105 21 114/62 05/09/16 10:30 36.4 105 18 106/55 05/09/16 09:45 36.3 104 20 97/47 05/09/16 09:30 36.4 100 20 121/66 05/09/16 09:15 36.4 96 20 97/49 05/09/16 09:00 36.5 93 20 88/51 05/09/16 08:45 36.7 96 20 62/38 05/09/16 08:45 36.7 92 20 71/45 96 Room Air 05/09/16 07:19 37.1 94 19 91/56 05/09/16 06:45 37.0 100 22 91/57 05/09/16 06:31 37.2 101 21 93/60 05/09/16 06:15 36.8 105 22 96/54 05/09/16 05:54 37.1 102 21 99/61 05/09/16 04:30 36.6 102 20 112/66 05/09/16 04:15 37.0 100 20 98/58 05/09/16 04:05 36.9 95 17 106/62 05/09/16 03:45 37.0 94 20 125/68 HEENT/AIRWAY: MP 2, Mouth Opening (OK), Other (No upper teeth) Lungs: Clear to Auscultation, Normal Air Movement Heart: Normal S1, Normal S2, Murmur Additional Information tachy Meds/Labs/Diagnostics Admission Meds Current Medications Sodium Chloride (Normal Saline) 1,000 ml @ 0 mls/hr Q0M ONCE IV Last administered on 05/08/16 17:39; Start 05/08/16 at 17:09; Stop 05/08/16 at 17:11; Status DC Pantoprazole 80 mg 80 mg STAT ONCE IVPUSH Last administered on 05/08/16 18:00 ; Start 05/08/16 at 17:40; Stop 05/08/16 at 17:41; Status DC Pantoprazole/ Miscellaneous/ Sodium Chloride (Protonix Inj/ Pharmacy To Mix/ Normal Saline) 100 ml @ 10 mls/hr ONCE ONCE IV Last administered on 05/08/16 18:10; Start 05/08/16 at 17:40; Stop 05/09/16 at 03:39; Status DC Octreotide Acetate 50 mcg 50 mcg ONCE ONCE IVPUSH Last administered on 18:27; Start 05/08/16 at 17:40; Stop 05/08/16 at 17:41; Status DC Octreotide Acetate 500 mcg/ Sodium Chloride 101 ml @ 10.1 mls/hr ONCE ONCE IV Last administered on 05/08/16 18:15; Start 05/08/16 at 17:40; Stop 05/09/16 at 03:39; Status DC Phytonadione/ Dextrose/Water (Vitamin K (Adult)/D5W Pharmacy To Mix) 51 ml @ 102 mls/hr ONCE ONCE IV Last administered on 05/08/16 19:15; Start 05/08/16 at 18:25; Stop 05/08/16 at 18:54; Status DC Sodium Polystyrene Sulfonate 30 gm 30 gm ONCE ONCE PO Last administered on 05/08 20:03; Start 05/08/16 at 18:25; Stop 05/08/16 at 18:26; Status DC Sodium Chloride (Normal Saline) 1,000 ml @ 150 mls/hr Q6H40M ONCE IV Last administered on 05/08/16 18:37; Start 05/08/16 at 18:23; Stop 05/08/16 at 18:50; Status DC Insulin Human Regular (HUMulin-R Insulin U-100 Inj) 10 unit ONCE ONCE IV Last administered on 05/08/16 19:12; Start 05/08/16 at 18:25; Stop 05/08/16 at 18:26; Status DC Dextrose/Water (D50 Syringe) 100 ml ONCE ONCE IVPUSH Last administered on 19:02; Start 05/08/16 at 18:25; Stop 05/08/16 at 18:26; Status DC Furosemide 20 mg 20 mg ONCE ONCE IVPUSH Last administered on 05/08/16 23:22; Start 05/08/16 at 18:35; Stop 05/08/16 at 18:36; Status DC Dextrose/Sodium Chloride 1,000 ml @ 100 mls/hr Q10H IV Last administered on 19:40; Start 05/08/16 at 18:50 Sodium Chloride (Normal Saline) 500 ml @ 0 mls/hr Q0M ONCE IV Last administered on 05/08/16 18:50; Start 05/08/16 at 18:50; Stop 05/08/16 at 18:51; Status DC Sodium Chloride 10 ml 10 ml Q8H IVFLUSH Last administered on 05/09/16 00:32; Start 05/09/16 at 00:30 Sodium Chloride (Normal Saline) 1,000 ml @ 100 mls/hr Q10H IV Last administered on 05/09/16 09:08; Start 05/08/16 at 21:19 Trazodone HCl (Desyrel) 200 mg HS PO Last administered on 05/09/16 01:24; Start 05/09/16 at 01:15 Tiotropium Galloway (Spiriva 18mcg/ Cap for Inh) 18 mcg DAILY INHALATION Last administered on 05/09/16 09:05; Start 05/09/16 at 08:30 Salmeterol Xinafoate/ Fluticasone (Advair 250-50) 1 puff BID INHALATION Last administered on 05/09/16 09:06; Start 05/09/16 at 08:30 Temazepam 30 mg 30 mg HS PO Last administered on 05/09/16 01:24; Start 05/09/16 at 01:15 Sodium Chloride 250 ml @ ud STK-MED ONCE .ROUTE Last administered on 05/08/16 21:42; Start 05/08/16 at 21:27; Stop 05/08/16 at 21:28; Status DC Pantoprazole 80 mg/Sodium Chloride 100 ml @ 10 mls/hr Q10H IV Last administered on 05/09/16 03:01; Start 05/09/16 at 04:00 Sodium Chloride (Normal Saline) 250 ml @ 10 mls/hr Q24H IV Last administered on 05/09/16 04:04; Start 05/09/16 at 01:20 Acetaminophen/ Butalbital/ Caffeine (Fioricet) 1 tab OT ONCE PO Last administered on 05/09/16 06:30; Start 05/09/16 at 06:20; Stop 05/09/16 at 06:21; Status DC Morphine Sulfate (Morphine 4 mg/ mL Syringe) 4 mg ONCE ONCE IVPUSH Last administered on 05/09/16t 11:40; Start 05/09/16 at 11:40; Stop 05/09/16 at 11:41; Status UNV Bedside Blood Glucose: 123 Labs Test 05/08/16 17:18 05/08/16 18:32 05/09/16 04:39 05/09/16 08:30 White Blood Count 15.6th/mm3 (3.8-10.1) Red Blood Count 2.43mil/mm3 (4.40-5.80) Mean Corpuscular Volume 92.2fL (81-100) Mean Corpuscular Hemoglobin 30.0pg (27.0-35.0) Mean Corpuscular Hemoglobin Concent 32.6% (32.0-37.0) Red Cell Distribution Width 16.0% (12.3-15.4) Platelet Count 212bil/L (150-400) Neutrophils (%) (Auto) 84.5% (40-74) Lymphocytes (%) (Auto) 8.0% (14-46) Monocytes (%) (Auto) 6.0% (4-12) Eosinophils (%) (Auto) 0.9% (0-5) Basophils (%) (Auto) 0.3% (0-3) Total Creatine Kinase 61U/L (21-232) Creatine Kinase MB 2.1ng/mL (0.0-10.4) Creatine Kinase MB % 3.4% (0.0-5.0) Troponin T < 0.010ug/L (0.0-0.011) Pro-B-Type Natriuretic Peptide 2170pg/mL (0-210) Hold Purple Top Tube Received (Received) Sodium Level 143mEq/L (134-144) Potassium Level 5.4mEq/L (3.5-5.2) Chloride Level 108mEq/L (97-108) Carbon Dioxide Level 21mmol/L (18-29) Blood Urea Nitrogen 46mg/dL (8-27) Creatinine 1.51mg/dL (0.76-1.27) Estimat Glomerular Filtration Rate 50mL/min (>59) Glucose Level 125mg/dL (60-99) Calcium Level 8.2mg/dL (8.5-10.1) Magnesium Level 2.0mg/dL (1.6-2.6) Total Bilirubin 1.7mg/dL (0.0-1.2) Aspartate Amino Transf (AST/SGOT) 22U/L (0-50) Alanine Aminotransferase (ALT/SGPT) 15U/L (0-44) Alkaline Phosphatase 50U/L (25-160) Total Protein 5.4g/dL (6.4-8.4) Albumin 3.3g/dL (3.4-5.0) Hemoglobin 5.1g/dL (13.8-17.2) Hematocrit 15.7% (41.0-50.0) Prothrombin Time 12.9sec (8.1-12.5) Prothromb Time International Ratio 1.20ratio Test 05/09/16 09:35 Lactic Acid Level 2.5mmol/L (0.4-2.0) Plan Impression Patient chart reviewed, patient interviewed and anesthestic plan with risks, benefits, and alternatives discussed, and informed consent obtained. NPO Status: NPO ASA Physical Status: ASA5 Plus Emergency Anesthetic Support Modalities: Arterial Line, Central Line, Hemodynamic Monitoring Anesthetic Plan: GA Bene/Risks/Altern/Consents: Yes HP Complete Prior to Induction: Yes Other Emergent OR for spleen bleed, hct 15 after 2 units prbc. Trenton Leon MD May 09, 2016 12:48
[2016-05-09 12:53] LABS: INR 1.35 ratio
[2016-05-09 12:59] LABS: Magnesium 1.7 mg/dL (1.6-2.6)
[2016-05-09 13:00] LABS: INR 1.45 ratio
[2016-05-09 13:05] LABS: Magnesium 1.6 mg/dL (1.6-2.6)
--- NOTE | 2016-05-09 13:54 | OP ---
[address] [address] OPERATIVE REPORT PATIENT: ZOILA ALFRED : 1955 MR#: [id number] ADMIT: 05/08/2016 JOB ID: [id number] DATE OF SURGERY: 05/09/2016 ANESTHESIA: General. PREOPERATIVE DIAGNOSIS(ES): Ruptured spleen. POSTOPERATIVE DIAGNOSIS(ES): Ruptured spleen. OPERATIVE PROCEDURE: 1. Emergent exploratory laparotomy. 2. Splenectomy. SURGEON: Josue Ovalle MD. ASSISTANTS: Kim Wallis MD (medical assistant secretary was required for safe and timely completion of the case) and Gogo Whalen PA-C, as well as Jeremie Lowe MD. COMPLICATIONS: None. ESTIMATED BLOOD LOSS: Approximately 3 L of blood was evacuated from the abdomen including a large perisplenic hematoma. DRAINS: A 19-Kazakh BIB drain was left in the left upper quadrant. SPECIMEN: Spleen. FINDINGS: The patient had an abdomen full of blood. It was evident that the spleen had formed a large subcapsular hematoma which then had ruptured. A splenectomy was performed. There was not significant active bleeding. INDICATION/SIGNIFICANT HISTORY: The patient is a 60-year-old man with multiple medical comorbidities including chronic kidney disease, mechanical heart valves on long-term anticoagulation, with a history of substance abuse, who presented to the hospital yesterday with acute shortness of breath. He was found to be anemic. Overnight, his anemia worsened in spite of transfusions. This morning a CT scan was obtained which showed a belly full of blood with a large subcapsular hematoma of the spleen with rupture. I was consulted and recommended an urgent trip to the operating room. OPERATIVE TECHNIQUE: The patient was taken to the operating room urgently and placed in a supine position. General anesthesia was administered. An A-line was placed and the abdomen was prepped and draped in a standard surgical fashion. The abdomen was entered with a generous upper midline incision. Several liters of blood were immediately evacuated and the left upper quadrant packed with sponges. The rest of the abdomen was then evacuated and inspected. I then removed the left upper quadrant sponges and manually obtained control of the hilum. There was a large perisplenic hematoma which was removed. The spleen was quite easily elevated to the midline. I then entered the lesser sac at the greater curve of the stomach and took the lateralmost short gastrics using an energy device. I was then able to place a 45-mm vascular NICHOLE load across the hilum. The spleen was then removed. The staple line bled at the splenic artery transection point. This was oversewn with 3-0 silk. There were two more points with very slow bleeding that were oversewn. The abdomen was then inspected and found to be hemostatic. The abdomen was copiously irrigated with warm saline. I then placed Tisseel over the staple line. A 19-Kazakh BIB drain was then brought out of the left upper quadrant of the abdomen and the drain placed in the splenic fossa. The fascia was closed using running 2-0 PDS. Skin was closed using 4-0 Monocryl. The entire procedure was well tolerated. The patient will be taken back to the ICU for further management.
[2016-05-09] MEDS ORDERED: fentaNYL 2,500 mCg/250 mL Premix IV ONE (14:09)
--- NOTE | 2016-05-09 14:16 | PCM.ANEP1 ---
Post Anesthesia Phase 1 PACU Phase 1 Assessment Date of Service: May 09, 2016 Vital Signs See ICU record Vital Signs Date Time Temp Pulse Resp B/P Pulse Ox O2 Delivery O2 Flow Rate FiO2 05/09/16 11:43 36.4 107 21 67/53 05/09/16 11:30 36.4 107 21 117/59 05/09/16 11:15 36.4 105 21 114/62 05/09/16 10:30 36.4 105 18 106/55 05/09/16 09:45 36.3 104 20 97/47 05/09/16 09:30 36.4 100 20 121/66 05/09/16 09:15 36.4 96 20 97/49 05/09/16 09:00 36.5 93 20 88/51 05/09/16 08:45 36.7 96 20 62/38 05/09/16 08:45 36.7 92 20 71/45 96 Room Air 05/09/16 07:19 37.1 94 19 91/56 05/09/16 06:45 37.0 100 22 91/57 05/09/16 06:31 37.2 101 21 93/60 Anesthetic Administered: GA Pain: No Airway Device: Endotrachial Tube Lungs: Normal Air Movement Summary Intubated and sedated to ICU Trenton Leon MD May 09, 2016 14:16
--- NOTE | 2016-05-09 14:34 | PCM.ANEP2 ---
Post Anesthesia Evaluation ASA/CMS Post Anesthesia Date of Service: May 09, 2016 VS in Patient's Normal Range?: Yes Resp Stable; Airway Patent?: Yes CV Function & Hydration Stable: Yes Mental Status Recovered?: Yes Pain control Satisfactory?: Yes N/V Control Satisfactory?: Yes Trenton Leon MD May 09, 2016 14:34
[2016-05-09 14:43] LABS: BASOPHILS % (AUTO) 0.1 % (0-3); EOSINOPHILS % (AUTO) 0 % (0-5); Mean Corpuscular Volume 83.6 fL (81-100)
[2016-05-09 14:45] LABS: MONOCYTES % (AUTO) 10.3 % (4-12); Mean Corpuscular Hemoglobin 29.7 pg (27.0-35.0); NEUTROPHILS % (AUTO) 84.5 % (40-74); Platelet Count 78 bil/L (150-400)
[2016-05-09] MEDS: fentaNYL 2,500 mCg/250 mL 2,500 MCG in IV Premix 1 EACH IV SCH (14:47)
[2016-05-09 14:56] LABS: INR 1.21 ratio
[2016-05-09 15:03] LABS: Magnesium 1.7 mg/dL (1.6-2.6)
--- NOTE | 2016-05-09 15:12 | ABG ---
DateTimeAnalyzed 15:06:00 -_ pH ____7.291 - 7.350 7.450 pCO2 ___42.6__ -mmHg 35.0 45.0 pO2 136 -mmHg 69.0 116 HCO3- ___19.9__ -mmol/L 22.0 26.0 ABE ___-6.0__ -mmol/L -2.0 2.0 tHb ___14.6__ -g/dL O2Hb ___96.3__ -% COHb ____1.3__ -% MetHb ____1.1__ -% sO2 ___98.7__ -% 25.0 FIO2 ___50.0__ -% PRVC 500 - PEEP ____5.0__ -cmH2O Set_RR ___14.0__ -b/min Vt __500.0__ -L Drawn By NB - Date/Time Notified____ 15:12:00 -_ Oxygen Device 1 VENTILATOR - Notified By nb - Notified Whom __Beuning - B 765 -mmHg tO2 ___20.0__ -Vol% Rj test N/A -
[2016-05-09] MEDS ORDERED: Magnesium Sulf 2 Gm/50mL Water 2 GM in IV Premix 1 EACH IV ONE (15:15)
[2016-05-09] MEDS ORDERED: Calcium GLUCO 10% (Gm) 1 Gm/10 mL 50 mL Inj IV ONE (15:15)
[2016-05-09] MEDS ORDERED: Calcium GLUCOnate 10% 1 Gm/50 mL NS IV ONE ×2 (15:40)
[2016-05-09] MEDS ORDERED: PEG/Electrolytes 4,000 mL Solution PO ONE (16:00)
[2016-05-09] MEDS ORDERED: [UNRECOGNIZED DRUG - OTHER] IM ONE (16:05)
[2016-05-09] MEDS: Pantoprazole 4 mg/mL 10 mL Inj IVPUSH SCH (16:25)
--- NOTE | 2016-05-09 16:26 | CONS ---
[address] [address] CONSULTATION REPORT PATIENT: ZOILA ALFRED : 1955 MR#: [id number] ADMIT: 05/08/2016 JOB ID: [id number] DATE OF SERVICE: 05/09/2016 PULMONARY CRITICAL CARE CONSULTATIVE NOTE: REQUESTING PHYSICIAN: Linnea Farley DO (RES) REASON FOR CONSULTATION: Ruptured spleen/postop care. HISTORY OF PRESENT ILLNESS: The patient is a 60-year-old male on Coumadin for bivalvular replacement and coronary artery disease, hypertension presented with shortness of breath. He also described weakness for about seven days. Initially found to be hypotensive with a systolic blood pressure in the 70s. Other past medical history includes: 1. Post aortic and mitral valve replacement with [place] valve in 2012. 2. Coronary artery disease with one-vessel bypass graft in 2012. 3. Congestive heart failure with ejection fraction 45%-50%. 4. Hepatitis C. 5. Atrial flutter. 6. Burkitt lymphoma 1971. 7. 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 8. Past history of IV heroin abuse along with a past history of alcohol abuse. 9. Chronic kidney disease of uncertain etiology or status. ALLERGIES: None known. Unable to obtain any other history at this time. The patient was found to have a ruptured spleen. He was evaluated expeditiously, treated surgically with removal of the spleen with control of the bleeding. Spleen had a clot adherent to it. There were minimal anesthetic problems. Initially he was somewhat hypertensive. That quickly resolved. Received apparently 12 units of blood throughout the course of preop and surgical intervention. Arrived in ICU on ventilator. Stable respiratory status and stable hemodynamic status. OBJECTIVE: O2 sat on an FiO2 of 50%, PEEP of 5, is 100%. Pulse 96, blood pressure 187/82. Respiratory rate 14 with ventilator set at 14. General appearance: Conjunctivae are pink. Chest is clear with good breath sounds bilaterally. Maybe a few crackles on the left though inconsistently so. Heart: Prosthetic valve snap. Abdomen: Surgical bandage. Quiet. Extremities: [place]. Hemosiderin deposits due to chronic vascular disease apparently. Skin is warm. The patient received 2 mg of Versed said with good effect for his agitation. Started on fentanyl for postop pain and subsequently because of some agitation again given a mg of Versed with good effect. Arterial blood gases on FiO2 of 50%, PEEP of 5, tidal volume of 500, rate of 14, shows a pO2 of 136, pCO2 of 43, pH is 7.29. LABORATORY VALUES: Show a white count of 13,500 with a moderate neutrophilia. Hemoglobin after surgery is 14.5. Platelet count 78,000 down from 212,000. Sodium 140, potassium 5.7, chloride 107, CO2 is 19. BUN 46 with a creatinine of 1.5, which is stable from previous values. Preop lactate was 2.5 earlier this morning, now 1.1. Calcium 6.8 with albumin of 2.8. Magnesium 1.7. Total bilirubin 1. Transaminases are normal. Coagulation shows a INR of 1.21 immediately postop. Fibrinogen prior to surgery was 121. ASSESSMENT: 1. Splenic rupture. Probably a combination of Coumadin, possibly some subacute trauma unnoticed because of substance abuse. However, will check an HIV titer. I do not think the lymphomas are playing any role here with the last being mucosal tumor. 2. Transfusion. Has hypercalcemia, borderline magnesium. Calcium being repleted. Magnesium as well. Will serially monitor his hematologic parameters. 3. Mechanical ventilation. Doing reasonably well. Will start a fentanyl drip to control his postoperative pain. We will also help with the endotracheal tube. Versed as needed. If this becomes any frequency, will start him on a propofol drip so they can be discontinued easily in the morning when I suspect he will be able to be extubated. 4. Thrombocytopenia. Will monitor a bit more closely than the other parameters which seem to be stabilizing. Thank you so much, Dr. Farley, for asking the Pulmonary service to see this most interesting individual. Will follow his respiratory status closely along with you.
--- NOTE | 2016-05-09 16:29 | DRSVH ---
PROCEDURE: X-RAY CHEST ONE VIEW, PORTABLE ([id number]) INDICATIONS: CHECK PLACEMENT ET TUBE AND LINE TECHNIQUE: One view of the chest was acquired. COMPARISON: [facility], [place], PET NECK TO MID THIGH STD, 04/10/2016, 8:50. [facility], CT, CT CHEST ABD PELVIS W CON, 02/21/2016, 13:11. [facility], CT, CT ABD PELVI S WO CON, 05/09/2016, 10:24. [facility], CR, XR CHEST 1VW (PORTABLE), 05/08/2016, 17:09. FINDINGS: Surgical changes and devices: The endotracheal tube is 3.3 cm above toribio. A right IJ central line i s noted with the tip in the area of the SVC. There is a surgical drain in the left upper quadrant. T here are prosthetic aortic valve and mitral valve. Lungs and pleura: Mild right lower lobe and left lower lobe infiltrates. No pleural effusions or pne umothorax. Mediastinum: Mediastinal contours appear normal. Heart size is normal. Bones and chest wall: No suspicious bony lesions. Overlying soft tissues appear unremarkable. IMPRESSION: The endotracheal tube is 3.3 cm above toribio. Dictated by: Suly Cao M.D. on 05/09/2016 at 16:27 Approved by: Suly Cao M.D. on 05/09/2016 at 16:27
[2016-05-09] MEDS: Chlorhexidine 0.12% 15 mL Oral Solution MT SCH ×3 (16:35→23:59)
--- NOTE | 2016-05-09 20:16 | PCM.PNMED ---
Subjective Date of Service May 09, 2016 Subjective Ron Cárdenas is a 60-year-old male with a history of CHF, CAD s/p single- vessel bypass graft, bivalvular replacement chronically anticoagulated on warfarin, angiodysplasia with prior GI bleeding, and hepatitis C who presented to the ED via EMS c/o a week history of worsening shortness of breath and generalized fatigue. Hypotensive and severely anemic on arrival and subsequently admitted for possible acute GI bleed. Hospital day #2. Hemodynamically unstable this morning with dramatic decrease in H/H despite copious transfusion of pRBCs. Stat CT of abdomen and pelvis showing splenic rupture. Patient in moderate distress, endorses moderate-severe abdominal pain. Denies history of trauma. Exam Vital Signs Vital Sign - Last Date Time Temp Pulse Resp B/P Pulse Ox O2 Delivery O2 Flow Rate FiO2 05/09/16 17:22 98 135/63 99 40 05/09/16 15:49 36.5 14 Mechanical Ventilator Intake and Output 05/08/16 05/08/16 05/09/16 Cumulative From/Thru 15:00 23:00 07:00 05/08/16 17:04 - 05/09/16 06:31 Intake Total 2293 ml 2416 ml 4709 ml Output Total 750 ml 750 ml Balance 2293 ml 1666 ml 3959 ml Intake Oral 0 ml 200 ml 200 ml IV Total 1740 ml 936 ml 2676 ml Packed Cells 553 ml 1280 ml 1833 ml Output Urine Total 750 ml 750 ml Exam General: Pale, ill-appearing male in moderate distress. Communicating effectively HEENT: Normocephalic, atraumatic. External ears without defect. PERRLA, Anicteric sclerae. Mucosa dry Neck: No jugular venous distension. No bruits. No lymphadenopathy or thyromegaly. Cardiovascular: Regular rate and rhythm with no murmurs, rubs, or gallops appreciated Pulmonary: Clear to auscultation bilaterally with no crackles, wheezes, or rhonchi. No use of accessory muscles. Abdomen: Bowel tones present. Soft, distended and diffusely tender to palpation. No masses appreciated. Extremities: Pale, no clubbing, cyanosis, edema, or lymphadenopathy appreciated. Neurological: Cranial nerves grossly intact. Normal muscle strength, tone, and bulk. Psychiatric: Normal mood and affect. Alert and oriented to person, place, and time. IVs and Medications Medications Reviewed: Medications were reviewed in detail Lab and Diagnostics Total Creatine Kinase 61, Creatine Kinase MB 2.1, Creatine Kinase MB % 3.4, Troponin T < 0.010, Pro-B-Type Natriuretic Peptide 2170 Fibrinogen 121 White Blood Count 13.5, Red Blood Count 4.89, Hemoglobin 14.5, Hematocrit 40.9, Mean Corpuscular Volume 83.6, Mean Corpuscular Hemoglobin 29.7, Mean Corpuscular Hemoglobin Concent 35.5, Red Cell Distribution Width 15.5, Neutrophils (%) (Auto) 84.5, Lymphocytes (%) (Auto) 4.7, Monocytes (%) (Auto) 10.3, Eosinophils (%) (Auto) 0, Basophils (%) (Auto) 0.1, Prothrombin Time 13.0 , Prothromb Time International Ratio 1.21 Sodium Level 140, Potassium Level 5.7, Chloride Level 107, Carbon Dioxide Level 19, Blood Urea Nitrogen 46, Creatinine 1.51, Estimat Glomerular Filtration Rate 50, Glucose Level 148, Lactic Acid Level 1.1, Calcium Level 6.8, Magnesium Level 1.7, Total Bilirubin 1.0, Aspartate Amino Transf (AST/SGOT) 25, Alanine Aminotransferase (ALT/SGPT) 18, Alkaline Phosphatase 41, Total Protein 5.0, Albumin 2.8 Platelet Count 80 Result Diagram: 05/09/16 1610 05/09/16 1410 X-Rays, CTs and MRIs CT ABDOMEN AND PELVIS WITHOUT CONTRAST (05/09/16) IMPRESSION: 1. Large amount of hemoperitoneum, which appears to be arising from the spleen, as there is a large amount of subcapsular splenic hemorrhage, as well as a clot inferior to the spleen. 2. Small right pleural effusion. 3. Mild aneurysmal dilatation of the infrarenal abdominal aorta. 4. The previously seen mass adjacent to the right posterior urinary bladder is suboptimally evaluated on the current examination. 5. Findings discussed with Dr. Ayala on 05.09.16 at 1100 hrs. Dictated and approved by: Dede Prado M.D. on 05/09/2016 at 11:21 X-RAY CHEST ONE VIEW, PORTABLE (05/09/16) IMPRESSION: No acute cardio pulmonary disease. Dictated and approved by: Suly Cao M.D. on 05/08/2016 at 18:58 X-RAY CHEST ONE VIEW, PORTABLE (05/09/16) IMPRESSION: The endotracheal tube is 3.3 cm above toribio. Dictated and approved by: Suly Cao M.D. on 05/09/2016 at 16:27 12-lead ECG Normal sinus rhythm with heart rate of 86, no acute ischemic changes. Cardiac Echo Impressions ECHO-INTERPRETATION SUMMARY (03/19/16) - The left ventricle is normal in size, wall thickness, and systolic function without any focal wall motion abnormalities. Left ventricular systolic function is normal. - The ejection fraction is estimated to be 55-60%. There are no obvious focal wall motion abnormalities noted but poor endocardial definition reduces the sensitivity for the detection of such. - The right ventricle is normal in size and function. The right ventricular systolic pressure is estimated at 38 mmHg assuming a right atrial pressure of 8 mm Hg. - The left atrium is severely dilated. Right atrial size is normal. - There is a mechanical mitral valve. The mean mitral valve pressure gradient is 10 mmHg. This has increased since prior study. - There is a mechanical aortic valve. The prosthetic aortic valve is well- seated. The peak aortic velocity is 339 cm/sec. The peak aortic velocity on the previous exam was 275 cm/sec. There is no other significant valvular heart disease. - The aortic root is normal size. Assessment & Plan Ron Cárdenas is a 60-year-old male with a history of CHF, CAD s/p single- vessel bypass graft, aortic as well as mitral valve replacement with chronic anticoagulation on warfarin, angiodysplasia with prior GI bleeding, and hepatitis C who presented to the ED via EMS c/o a week history of worsening shortness of breath and generalized fatigue. Hypotensive and severely anemic on arrival and subsequently admitted for possible acute GI bleed. Hemodynamically unstable with dramatic decrease in H/H despite copious transfusion of pRBCs. Stat CT of abdomen and pelvis showing splenic rupture. Hospital day #2. 1. Splenic rupture, s/p splenectomy. Present on admission. Active. - Pt has hx of substance abuse, denies recent use or trauma. Clinically no evidence of trauma. - Supra-therapeutic INR (4.96); 1.2 prior to surgery - Hemodynamically unstable; H/H continued to drop despite 4units of pRBCs, 7 of FFP and 10mg of Vit K. - Stat CT abd/pelvis revealed subcapsular splenic hemorrhage with large hemoperitoneum. - Pt taken urgently to the OR for exploratory laparotomy and splenectomy by Dr. Ovalle. - Returned to CCU, hemodynamically stable, intubated and mechanically ventilated. Pulmonology/Critical Care Team consulted. - Continue IV fluids, sedation and ventilator management. Per Pulmonology. - Monitor H/H, no signs of active bleeding post-op. GI source of bleeding less likely, will follow up with GI in the morning. 2. Acute anemia, secondary to blood loss. Present on admission. Active. - Hx of chronic anemia. - H/H 7.3/22.4 with nicky of 5.1/15.7 prior to surgery. - Post-op H/H 14.5/40.9. - Pt reportedly rec'd 12units of pRBCs total. - Monitor daily CBC, pRBCs on stanby 3. Acute on chronic kidney injury, present on admission. Active. - Pt with CKD stage III and baseline creatinine 1.3. - Likely prerenal secondary to hypoperfusion due to acute bleed - Continue IV fluids cautiously in setting of CHF. - Avoid nephrotoxic insults and monitor daily BMP 4. Hyperkalemia, unknown chronicity. present on admission. Active. - Potassium 6.0 on admission. Rec'd Kayexalate in the ED. - Most recent potassium 5.7. - Continue IV fluids, monitor daily BMP - Consider additional Kayexalate 5. Hepatitis C, chronic. present on admission. Active. 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 - Continue home medications. 6. Possible acute GI bleed, present on admission. Active. - Pt with hx of multiple GI bleeds with AVMs noted on prior endoscopy. - Pt reportedly with melena on admission. - H/H significantly improved following urgent splenectomy, which is likely source for acute blood loss anemia - GI consulted and following. - Daily CBC - Continue PPI, as pt now on ventilator. 7. History of bivalvular replacement and CAD s/p single vessel bypass graft, present on admission. Ongoing. - INR goal 2.5-3.5, holding anticoagulation in setting of acute bleed - Supra-therapeutic INR on admission (4.96), 1.2 prior to surgery. - Consider heparin post-op. - Will discuss anticoagulation with Surgery, GI and Pulmonology/Critical Care. 8. Possible acute diastolic CHF, present on admission. Active - Pt presented with dyspnea of exertion and worsening shortness of breath. - Hold diuresis in setting of hypovolemia 9. History of Hodgkin's lymphoma as a child, present on admission. Active - Pt now reportedly with recurrence of Hodgkin's lymphoma in his groin. - Rec'd radiation as child which ultimately caused valvular disease - Will attempt to obtain outside records High-risk medications: IV fentanyl, midazolam Acetaminophen-fever/headache/mild/moderate pain Antiemetics, as needed Bowel regimen, as needed. Disposition: Patient will need several more days of inpatient monitoring due to the severity of presenting pathology, multiple comorbidities and risk of treatment. Pain Evaluation: Adequate Pain Control GI Prophylaxis: Proton Pump Inhibitor VTE Prophylaxis: SCDs Resuscitation Status: CPR: Attempt Resuscitation Attending Statement The patient was seen and examined together with Dr. Conte on 05-09-16 and I agree with the history, exam and plan as outlined in the note above. Patient's condition deteriorated in the AM with increasing abdominal pain and girth and dropping blood count with no evident bleeding seen. Patient was evaluated and CT done which showed an acute bleeding splenic rupture patient was rushed to the OR and subsequently recovered in the ICU still intubated. I personally spent 75 minutes of critical care time managing this patient today. Carolina Conte DO May 09, 2016 18:51 Jose Eduardo Nguyen MD May 10, 2016 08:21
[2016-05-09 20:47] LABS: INR 1.07 ratio
[2016-05-09 20:51] LABS: Magnesium 2.5 mg/dL (1.6-2.6); Phosphorus 6.5 mg/dL (2.5-4.9)
[2016-05-09] MEDS ORDERED: 0.9% Sodium Chloride 500 ML ONE (22:30)
[2016-05-09] MEDS: 0.9% Sodium Chloride 1,000 ML IV PRN ×2 (22:30→23:30)
[2016-05-10] VITALS (13 sets, daily range): BP systolic 100–119; BP diastolic 44–60; PULSE 79–86; RESP 13–16; O2SAT 96–100
[2016-05-10] MEDS ORDERED: Propofol 10,000 mCg/mL 100 mL Inj ONE (00:16)
[2016-05-10] MEDS ORDERED: Propofol Inj 1,000,000 MCG in IV Premix 1 EACH IV SCH (00:20)
[2016-05-10 03:18] LABS: Mean Corpuscular Hemoglobin 29.2 pg (27.0-35.0); Mean Corpuscular Volume 83.7 fL (81-100); Platelet Count 91 bil/L (150-400)
[2016-05-10 03:39] LABS: BASOPHILS % (AUTO) 0 % (0-3); EOSINOPHILS % (AUTO) 0 % (0-5); MONOCYTES % (AUTO) 11 % (4-12); NEUTROPHILS % (AUTO) 78 % (40-74)
[2016-05-10 03:42] LABS: Magnesium 2.3 mg/dL (1.6-2.6); Phosphorus 5.6 mg/dL (2.5-4.9)
--- NOTE | 2016-05-10 04:46 | ABG ---
DateTimeAnalyzed 04:41:00 -_ pH ____7.316 - 7.350 7.450 pCO2 ___40.0__ -mmHg 35.0 45.0 pO2 146 -mmHg 69.0 116 HCO3- ___19.9__ -mmol/L 22.0 26.0 ABE ___-5.4__ -mmol/L -2.0 2.0 tHb ___11.1__ -g/dL O2Hb ___96.5__ -% COHb ____1.1__ -% MetHb ____1.3__ -% sO2 ___98.9__ -% 25.0 FIO2 ___40.0__ -% PEEP ____5.0__ -cmH2O Vt __500.0__ -L Drawn By af - Date/Time Notified____ 04:46:00 -_ Spontaneous_RR ___14.0__ -b/min Oxygen Device 1 VENTILATOR - Notified By af - Notified Whom ____nurse - B 766 -mmHg tO2 ___15.4__ -Vol% Rj test N/A -
[2016-05-10] MEDS: Chlorhexidine 0.12% 15 mL Oral Solution MT SCH ×2 (04:59→10:08)
[2016-05-10] MEDS ORDERED: Calcium GLUCO 10% (Gm) 1 Gm/10 mL 50 mL Inj IV ONE (05:00)
[2016-05-10] MEDS: fentaNYL 2,500 mCg/250 mL 2,500 MCG in IV Premix 1 EACH IV SCH (05:02)
[2016-05-10] MEDS ORDERED: Calcium GLUCO 10% (Gm) Inj 2 GM in Dextrose 5% 100 ML IV ONE (05:05)
[2016-05-10] MEDS: 0.9% Sodium Chloride 1,000 ML IV SCH (05:36)
[2016-05-10] MEDS: 0.9% Sodium Chloride 1,000 ML IV PRN (05:36)
--- NOTE | 2016-05-10 08:21 | PROG NOTE ---
[address] [address] PROGRESS NOTE PATIENT: ZOILA ALFRED : 1955 MR#: [id number] ADMIT: 05/08/2016 JOB ID: [id number] DATE: 05/10/2016 SUBJECTIVE: The patient is seen postoperative day one from his emergency splenectomy for splenic rupture with hemorrhagic shock. Overnight the patient seems to have done fine. This morning, he remains sedated and intubated. OBJECTIVE: This morning his MAPS are in the 60s. His heart rate is in the 70s. He is saturating 99% on FiO2 40%. His blood gas looks fine. His abdomen is soft, not distended. His BIB drain remains in place. He had a total of 535 cc out since surgery. This is serosanguineous fluid. His white blood cell count is 19.3 from 13.5. His hematocrit is slowly trending down 40.9 to 37.5 to 32.4 this morning. Just suspected largely hemodilutional. ASSESSMENT AND PLAN: This is a 60-year-old man who is on anticoagulation for mechanical heart valves, who suffered a splenic rupture requiring emergency splenectomy. At this point there is no clear indication that he has an ongoing bleeding. His BIB drain output is serosanguinous. His blood pressure looks fine this morning and his gas looks okay. My hope is that he can be extubated this morning. I have ordered a BIB drain amylase for today as well as postop day three, to assess for the possibility of a pancreatic leak. His BIB drain should remain in place until that followup for amylase is okay. He will also need to receive post splenectomy vaccines at some point. We should wait until he is two weeks out from surgery as at this point, he is unable to mount an adequate immune response. YOHANNES
--- NOTE | 2016-05-10 08:30 | PCM.PNSURG ---
Subjective Date of Service: May 10, 2016 Date of Service: May 10, 2016 Visit Information: Subjective: hb 11.3 this am. s/p ex lap for bleed from spleen yesterday. intubated Postop General: No Complaints Objective Vital Sign- Last 8 Hours Date Time Temp Pulse Resp B/P Pulse Ox O2 Delivery O2 Flow Rate FiO2 05/10/16 07:36 79 15 113/47 100 40 05/10/16 07:35 79 115/49 100 40 05/10/16 06:00 80 05/10/16 04:49 79 115/49 100 40 05/10/16 04:00 37.1 80 14 100/44 99 Mechanical Ventilator 40 Intake and Output- Last 8 Hour 05/10/16 Cumulative From/Thru 07:00 05/08/16 17:04 - 05/10/16 06:38 Intake Total 3101 ml 76506 ml Output Total 1160 ml 9410 ml Balance 1941 ml 5660 ml Intake Oral 600 ml IV Total 3101 ml 9677 ml Autotransfusion 1750 ml Packed Cells 3043 ml Output Urine Total 625 ml 2625 ml Gastric Drainage Total 170 ml 190 ml Drainage Total 365 ml 595 ml Estimated Blood Loss 6000 ml General: Alert Neck: Supple Lungs: Clear to Auscultation Heart: Exam Unremarkable Abdomen: Benign, Soft, Non-distended Extremities: Distal Pulses Palpable Result Diagram: 05/10/16 0300 05/10/16 0300 Assessment & Plan Impression This is a 60-year-old male with history of multiple valve surgeries in the heart, aortic valve regurgitation and mitral valve regurgitation on Coumadin, arteriovenous malformations on colonoscopy in the ascending colon and sigmoid colon, history of coronary artery bypass graft, congestive heart failure , coronary artery disease, hepatitis C currently on Epclusa for three weeks now , hypertension, mitral regurgitation, hyperlipidemia, atrial flutter, 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 s/p ex lap 05/09/2016 Recs 1. Recs per surgery will sign off Problems: VTE Prophylaxis: SCDs Resuscitation Status: CPR: Attempt Resuscitation Shyam Ayala MD May 10, 2016 08:30
--- NOTE | 2016-05-10 09:42 | DRSVH ---
PROCEDURE: X-RAY CHEST ONE VIEW, PORTABLE ([id number]) INDICATIONS: intubated pt; monitor tubes, lines TECHNIQUE: One view of the chest was acquired. COMPARISON: [facility], CR, XR CHEST 1VW (PORTABLE), 05/09/2016, 14:28. FINDINGS: Surgical changes and devices: Right central venous catheter and endotracheal tube are unchanged. The NG tube has been repositioned and the tip is projected over the gastric fundus. Patient is status pos t median sternotomy and valvular replacement. Left upper quadrant surgical drain is redemonstrated. Lungs and pleura: No pleural effusions or pneumothorax. Lungs are clear. Mediastinum: Mediastinal contours appear normal. Heart size is normal. Bones and chest wall: No suspicious bony lesions. Overlying soft tissues appear unremarkable. IMPRESSION: Repositioning of the NG tube. No acute cardiopulmonary findings. Dictated by: Nyla Chaudhari M.D. on 05/10/2016 at 9:40 Approved by: Nyla Chaudhari M.D. on 05/10/2016 at 9:40
[2016-05-10] MEDS: EPCLUSA PO SCH ×2 (10:03→15:55)
[2016-05-10] MEDS: Fluticasone-Salmererol 250-50 Inhaler INHALATION SCH ×2 (10:04→20:12)
[2016-05-10] MEDS: Sodium Chloride LOK Flush 10 mL Syringe IVFLUSH SCH ×2 (10:07→16:15)
[2016-05-10] MEDS: Pantoprazole 4 mg/mL 10 mL Inj IVPUSH SCH (10:07)
[2016-05-10] MEDS: Tiotropium 18mcg/Cap 5 Capsule Inhaler Kit INHALATION SCH (10:21)
--- NOTE | 2016-05-10 10:29 | ABG ---
DateTimeAnalyzed 10:25:00 -_ pH ____7.301 - 7.350 7.450 pCO2 ___42.8__ -mmHg 35.0 45.0 pO2 149 -mmHg 69.0 116 HCO3- ___20.5__ -mmol/L 22.0 26.0 ABE ___-5.1__ -mmol/L -2.0 2.0 tHb ___10.4__ -g/dL O2Hb ___96.7__ -% COHb ____1.0__ -% MetHb ____1.4__ -% sO2 ___99.1__ -% 25.0 FIO2 ___40.0__ -% Pressure_Support ____5.0__ -cmH2O PEEP ____5.0__ -cmH2O Drawn By NB - Date/Time Notified____ 10:29:00 -_ Spontaneous_RR ___18.0__ -b/min Oxygen Device 1 VENTILATOR - Notified By NB - Notified Whom ___Parimi - B 765 -mmHg tO2 ___14.5__ -Vol%
--- NOTE | 2016-05-10 11:01 | PROG NOTE ---
[address] [address] PROGRESS NOTE PATIENT: ZOILA ALFRED : 1955 MR#: [id number] ADMIT: 05/08/2016 JOB ID: [id number] DATE: 05/10/2016 NOTE: Patient was seen and evaluated with resident physician, Dr. Ana M James. Please refer to her separate detailed note for additional information. The following is an addendum. PULMONARY CRITICAL CARE PROGRESS NOTE: The patient is a 60-year-old man with a complex past medical history, including mitral and aortic valve replacement with mechanical valves, history of polysubstance abuse in the past, hepatitis C, coronary artery disease who presented with acute blood loss anemia subsequently found to be due to splenic rupture, status post emergent splenectomy on May 09. INTERVAL HISTORY: He was left intubated postop yesterday and is doing well on a spontaneous breathing trial, currently ready for extubation. REVIEW OF SYSTEMS: Unable to obtain since patient is intubated. PHYSICAL EXAMINATION: Vital signs reviewed. Notable for FiO2 of 40% on the vent. He is on a pressure support of 5/5, currently with good tidal volumes and rates alert, nodding in response to questions. Chest: Clear to auscultation. Heart: Loud mechanical heart sounds audible. LABORATORIES: Reviewed, notable for WBC up to 19 from 13 yesterday, hemoglobin 11, platelets 78. Chemistry was reviewed and notable for chloride up to 112, creatinine of 1.65. Chest x-ray reviewed and normal. ASSESSMENT AND RECOMMENDATIONS: 1. Acute hypoxic respiratory failure - left intubated postoperatively. 2. Acute blood loss anemia due to splenic rupture. 3. Splenic rupture, status post splenectomy 05/09. 4. Mechanical aortic and mitral valve, on chronic anticoagulation. 5. History of polysubstance abuse. 6. History of acute on chronic kidney injury. This 60-year-old man with complex past medical history, including anticoagulation for mechanical valve, is presenting with a splenic rupture of unknown etiology. He is currently intubated since his surgery and is passing a spontaneous breathing trial, so will go ahead and extubate him. From a hemodynamic standpoint, his hemoglobin is appropriate, and there is no indication for confusion or ongoing blood loss at this point. Per Infectious Disease, the recommendation is to get a pneumococcal vaccination in two weeks' time. He is not currently on any antibiotics, and we are going to get blood cultures. He is currently getting gastrointestinal prophylaxis but he is not on deep venous thrombosis prophylaxis at this time. We can probably directly start a heparin drip when cleared by Surgery with regard to his mechanical valves. CRITICAL CARE TIME: 45 minutes.
--- NOTE | 2016-05-10 11:05 | PCM.PNMED ---
Subjective Date of Service May 10, 2016 Subjective PULMONARY/CRITICAL CARE PROGRESS NOTE Patient intubated and sedated so no ROS obtained. Overnight, patient had a decreased MAP and was given fluid boluses. Sedation also weaned down with good response in MAP. Otherwise uneventful. Exam Vital Signs Vital Sign - Last Date Time Temp Pulse Resp B/P Pulse Ox O2 Delivery O2 Flow Rate FiO2 05/10/16 08:00 36.7 79 15 110/45 99 Mechanical Ventilator 05/10/16 07:36 40 Intake and Output 05/09/16 05/09/16 05/10/16 Cumulative From/Thru 15:00 23:00 07:00 05/08/16 17:04 - 05/10/16 06:38 Intake Total 3950 ml 3310 ml 3101 ml 56462 ml Output Total 3200 ml 4300 ml 1160 ml 9410 ml Balance 750 ml -990 ml 1941 ml 5660 ml Intake Oral 400 ml 600 ml IV Total 990 ml 2910 ml 3101 ml 9677 ml Autotransfusion 1750 ml 1750 ml Packed Cells 1210 ml 3043 ml Output Urine Total 200 ml 1050 ml 625 ml 2625 ml Gastric Drainage Total 20 ml 170 ml 190 ml Drainage Total 230 ml 365 ml 595 ml Estimated Blood Loss 3000 ml 3000 ml 6000 ml Exam General: Intubated and sedated in the ICU. No apparent distress. HEENT: Normocephalic, atraumatic. PERRLA, Anicteric sclerae. Conjunctival hemorrhage in the left eye. No apparent oral thrush. OG tube in place. Neck: No jugular venous distension. No bruits. No lymphadenopathy or thyromegaly. Right IJ in place. Cardiovascular: Regular rate and rhythm. Loud valve tones due to multiple prosthetic valves. Soft systolic murmur appreciated. Pulmonary: Clear to auscultation bilaterally with no crackles, wheezes, or rhonchi. No use of accessory muscles. Abdomen: Bowel tones present. Soft. Tender with significant surgical wound present. Left BIB drain in place with serosanguinous fluid. Extremities: Pale, no clubbing, cyanosis, edema, or lymphadenopathy appreciated. Right radial art line in place. Zendejas catheter present. Ventilator settings: PRVC at FiO2 .40. Undergoing SBT at PEEP of 5 and PC over PEEP of 5. IVs and Medications Medications Reviewed: Medications were reviewed in detail Lab and Diagnostics Result Diagram: 05/10/16 0300 05/10/16 0300 Assessment & Plan Patient is a 60 year old male with a history of CHF, CAD s/p CABG, aortic and mitral prosthetic valves on chronic anticoagulation, and hepatitis C. Presented to [facility] via EMS on 05/08/16 after a week of worsening SOB and fatigue. Patient found to be hypotensive and anemic in the ED with concern for GI bleed. Estimated to have received approximately 12 units PRBC's and 7 units FFP over the course of admission. CT abdomen/pelvis showed splenic rupture and patient was taken to surgery on 05/09/16. Hospital day #3. 1. Splenic rupture, POD #1. - Patient denies history of known trauma. Suspect a multifactorial cause including trauma related to substance abuse, supratherapeutic INR. - HIV titer ordered and pending to evaluate that as a contributing factor. - Post-op pain regimen per primary team. - Wound and drain management per general surgery. 2. Ventilator dependence in the post-op period. - Patient tolerating SBT this AM with plans to extubate today. - Discontinue sedation medications at time of extubation. - Speech evaluation post extubation. - Physical therapy evaluation post-extubation. - Incentive spirometer to be ordered post-extubation in an effort to prevent atelectasis. 3. Anemia secondary to splenic rupture. - Post massive transfusion with 12 units PRBC's and7 units FFP. - Appears stable this AM. - Continue to monitor closely with CBC. - Also monitor magnesium, calcium and other electrolytes closely. 4. Leukocytosis. - Possibly a reactive process secondary to surgery and transfusion. - Blood cultures ordered to evaluate for infection as that cannot be ruled out at this time. - No antibiotics ordered at this time. 5. Thrombocytopenia, improving. - Likely secondary to splenic rupture. - Continue to monitor with CBC. 6. Aortic and mitral prosthetic valves. - Re-start anticoagulation with the guidance of general surgery. 7. Acute on chronic kidney injury. - Baseline is CKD stage 3. - Continue to monitor BMP. 8. Hepatitis C, chronic. - Defer management to primary team. If things go well post-extubation will not plan to continue following the patient. Feel free to call us with any questions or concerns. GI Prophylaxis: Proton Pump Inhibitor VTE Prophylaxis: SCDs VTE Mechanical Devices: Intermittant Pneumatic CD Resuscitation Status: CPR: Attempt Resuscitation Attending Statement I have seen and examined this patient with the resident physician. Vital signs , labs, imaging have been reviewed. I agree with the assessment and plan above. Please refer to my separately dictated progress note for any modifications to above. Fozia Capellan M.D. Pulmonary and Critical Care medicine Pager [phone] Ana M James DO May 10, 2016 11:05 Fozia Capellan MD May 11, 2016 14:40
[2016-05-10] MEDS: HYDROmorphone PCA 0.2 mg/mL 30 mL Inj IV PRN (16:01)
--- NOTE | 2016-05-10 16:29 | PCM.PNMED ---
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 He was found to have an atraumatic splenic rupture now status post splenectomy. Hospital day #3. The patient is intubated and sedated therefore subjective exam and review of systems is unobtainable. . Exam Vital Signs Vital Sign - Last Date Time Temp Pulse Resp B/P Pulse Ox O2 Delivery O2 Flow Rate FiO2 05/10/16 14:40 37.0 86 13 119/60 100 Nasal Cannula 2.00 05/10/16 07:36 40 Intake and Output 05/09/16 05/09/16 05/10/16 Cumulative From/Thru 15:00 23:00 07:00 05/08/16 17:04 - 05/10/16 06:38 Intake Total 3950 ml 3310 ml 3101 ml 34714 ml Output Total 3200 ml 4300 ml 1160 ml 9410 ml Balance 750 ml -990 ml 1941 ml 5660 ml Intake Oral 400 ml 600 ml IV Total 990 ml 2910 ml 3101 ml 9677 ml Autotransfusion 1750 ml 1750 ml Packed Cells 1210 ml 3043 ml Output Urine Total 200 ml 1050 ml 625 ml 2625 ml Gastric Drainage Total 20 ml 170 ml 190 ml Drainage Total 230 ml 365 ml 595 ml Estimated Blood Loss 3000 ml 3000 ml 6000 ml Exam General: No acute distress, well-developed, well-nourished, appropriately interactive HEENT: Normocephalic, atraumatic. External ears without defect. Pupils equal, round, and reactive to light and accommodation. Anicteric sclerae, moist conjunctivae, and no lid lag. Oropharynx free of erythema and cobble stoning with moist mucosa. Neck: Supple with full range of motion. No jugular venous distension. No bruits. No lymphadenopathy or thyromegaly. Cardiovascular: Regular rate and rhythm with no murmurs, rubs, or gallops appreciated Pulmonary: Clear to auscultation bilaterally with no crackles, wheezes, or rhonchi. Normal respiratory effort with no use of accessory muscles. Abdomen: Bowel tones present. Soft, nontender, nondistended. No hepatosplenomegaly or masses appreciated. Extremities: No clubbing, cyanosis, or edema. Skin: Normal temperature, turgor, and texture; no rash, ulcers, or subcutaneous nodules appreciated. Neurological: Cranial nerves grossly intact. Normal muscle strength, tone, and bulk. Reflexes, coordination, and sensory function within normal limits. No known gait impairment. Psychiatric: Normal mood and affect. Alert and oriented to person, place, and time. Ventilator settings: PRVC. Tidal volume 500. Respiratory rate 14. FiO2 40%. PEEP 5.0. ABG: pH 7.316. PCO2 40. PO2 146. HCO3 19.9. IV drips and Sedatives: Fentanyl 125 mcg/hr. Propofol 20 mcg/hr. IV lines: IJ Central line. Left AC peripheral IV and right forearm peripheral IV. I&O: Net + 5660. IVs and Medications Medications Reviewed: Medications were reviewed in detail Lab and Diagnostics Item Value Date Time Calcium Level 6.6 mg/dL *L 05/10/16 0300 Phosphorus Level 5.6 mg/dL H 05/10/16 0300 Magnesium Level 2.3 mg/dL 05/10/16 0300 Albumin 2.6 g/dL L 05/10/16 0300 Result Diagram: 05/10/16 0300 05/10/16 030 Microbiology Blood culture x2 pending. MRSA screen pending. Sputum culture shows insufficient growth and is very intubated. . X-Rays, CTs and MRIs X-RAY CHEST ONE VIEW, PORTABLE IMPRESSION: No acute cardio pulmonary disease. Dictated by: Suly Cao M.D. on 05/08/2016 at 18:58 Approved by: Suly Cao M.D. on 05/08/2016 at 18:58 CT ABDOMEN AND PELVIS WITHOUT CONTRAST IMPRESSION: 1. Large amount of hemoperitoneum, which appears to be arising from the spleen, as there is a large amount of subcapsular splenic hemorrhage, as well as a clot inferior to the spleen. 2. Small right pleural effusion. 3. Mild aneurysmal dilatation of the infrarenal abdominal aorta. 4. The previously seen mass adjacent to the right posterior urinary bladder is suboptimally evaluated on the current examination. 5. Findings discussed with Dr. Ayala on 05.09.16 at 1100 hrs. Dictated by: Dede Prado M.D. on 05/09/2016 at 11:21 Approved by: Dede Prado M.D. on 05/09/2016 at 11:21 Assessment & Plan Ron Cárdenas is a 60-year-old male with a history of coronary artery disease status post single-vessel bypass graft, mechanical bivalvular replacement chronically anticoagulated on warfarin, arteriovenous malformation with prior GI bleeding, and hepatitis C who presented to the [facility] ED via EMS for abrupt onset shortness of breath and weakness x1 week who was found to be hypotensive and severely anemic on arrival and was subsequently admitted for possible acute GI bleed. He was found to have an atraumatic splenic rupture now status post splenectomy. Hospital day #3. 1. Splenic rupture, status post splenectomy, present on admission. Active. - Patient denies recent history of trauma to his abdomen. Differential diagnosis includes: Subacute trauma versus anticoagulation versus lymphoma. - Stat CT abdomen and pelvis with oral contrast revealed subcapsular splenic hemorrhage with large hemoperitoneum. - Supra-therapeutic INR (4.96); 1.2 prior to surgery. - Now hemodynamically stable post-op day #1. Patient received massive transfusion and in total: 12 U PRBC's, 7U of FFP and 10mg of Vit K. - Continue to monitor hemoglobin and hematocrit closely. - Returned to CCU, hemodynamically stable, intubated and mechanically ventilated. Continue sedation and ventilator management per Pulmonology. - Pulmonology/Critical Care team consulted. We appreciate their time and care of the patient. 2. Acute blood loss anemia, present on admission. Resolved. - Patient received massive transfusion and in total: 12 U PRBC's, 7U of FFP and 10mg of Vit K. - Continue to monitor hemoglobin and hematocrit closely. 3. Acute kidney injury, present on admission. Active. - Baseline creatinine 1.0 and estimated GFR > 60 one month ago therefore likely does not have CKD as previously reported. - Likely prerenal secondary to hypoperfusion due to acute bleed. - Continue IV fluids. - Avoid nephrotoxic agents. - Continue to monitor creatinine and urine output daily. 4. Hyperkalemia, unknown chronicity, present on admission. Resolved. - Potassium 6.0 on admission. Rec'd Kayexalate in the ED. - Most recent potassium 5.7. - Continue IV fluids, monitor daily BMP - Consider additional Kayexalate 5. Possible acute GI bleed, present on admission. Active. - Pt with hx of multiple GI bleeds with AVMs noted on prior endoscopy. - Pt reportedly with melena on admission. - H/H significantly improved following urgent splenectomy, which is likely source for acute blood loss anemia - GI consulted and following. - Daily CBC - Continue PPI, as pt now on ventilator. History of mechanical bivalvular replacement. Stable. - INR goal 2.5-3.5, holding anticoagulation in setting of acute bleed - Supra-therapeutic INR on admission (4.96), 1.2 prior to surgery. - Consider heparin post-op. - Will discuss anticoagulation with Surgery, GI and Pulmonology/Critical Care. 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 - Patient now reportedly with recurrence of Hodgkin's lymphoma in his groin. - Rec'd radiation as child which ultimately caused valvular disease - Will attempt to obtain outside records Chronic hepatitis C, present on admission. Presumed stable. 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 - Continue home antivirals. High-risk medications: IV fentanyl and propofol. GI Prophylaxis: Proton Pump Inhibitor VTE Prophylaxis: SCDs VTE Mechanical Devices: Intermittant Pneumatic CD Resuscitation Status: CPR: Attempt Resuscitation Attending Statement The patient was seen and examined together with Dr. Farley on 05-10-16 and I agree with the history, exam and plan as outlined in the note above. Linnea Farley DO May 10, 2016 16:28 Jose Eduadro Nguyen MD May 11, 2016 10:44 - Patient denies history of known trauma. Suspect a multifactorial cause including trauma related to substance abuse, supratherapeutic INR. - HIV titer ordered and pending to evaluate that as a contributing factor. - Post-op pain regimen per primary team. - Wound and drain management per general surgery. 2. Ventilator dependence in the post-op period. - Patient tolerating SBT this AM with plans to extubate today. - Discontinue sedation medications at time of extubation. - Speech evaluation post extubation. - Physical therapy evaluation post-extubation. - Incentive spirometer to be ordered post-extubation in an effort to prevent atelectasis. 3. Anemia secondary to splenic rupture. - Post massive transfusion with 12 units PRBC's and7 units FFP. - Appears stable this AM. - Continue to monitor closely with CBC. - Also monitor magnesium, calcium and other electrolytes closely. 4. Leukocytosis. - Possibly a reactive process secondary to surgery and transfusion. - Blood cultures ordered to evaluate for infection as that cannot be ruled out at this time. - No antibiotics ordered at this time. 5. Thrombocytopenia, improving. - Likely secondary to splenic rupture. - Continue to monitor with CBC. 6. Aortic and mitral prosthetic valves. - Re-start anticoagulation with the guidance of general surgery. Acute on chronic kidney injury. - Baseline is CKD stage 3. - Continue to monitor BMP. Chronic hepatitis C, present on admission. Presumed stable. - Continue home antivirals. GI Prophylaxis: Proton Pump Inhibitor VTE Prophylaxis: SCDs VTE Mechanical Devices: Intermittant Pneumatic CD Resuscitation Status: CPR: Attempt Resuscitation Linnea Farley DO May 10, 2016 16:28
[2016-05-10 21:55] LABS: INR 0.99 ratio
[2016-05-11] VITALS (15 sets, daily range): BP systolic 76–154; BP diastolic 37–66; PULSE 67–88; RESP 14–20; O2SAT 94–99
[2016-05-11] MEDS: Sodium Chloride LOK Flush 10 mL Syringe IVFLUSH SCH ×3 (00:30→16:54)
[2016-05-11 05:10] LABS: BASOPHILS % (AUTO) 0.1 % (0-3); MONOCYTES % (AUTO) 18.4 % (4-12); Mean Corpuscular Volume 89.3 fL (81-100); NEUTROPHILS % (AUTO) 67.4 % (40-74); Platelet Count 111 bil/L (150-400)
[2016-05-11 05:37] LABS: Magnesium 2.2 mg/dL (1.6-2.6); Phosphorus 2.2 mg/dL (2.5-4.9)
[2016-05-11] MEDS ORDERED: 0.9% Sodium Chloride 500 ML IV ONE (06:20)
[2016-05-11] MEDS: HYDROmorphone PCA 0.2 mg/mL 30 mL Inj IV PRN (07:15)
[2016-05-11] MEDS: Fluticasone-Salmererol 250-50 Inhaler INHALATION SCH ×2 (08:34→21:53)
[2016-05-11] MEDS: EPCLUSA PO SCH (08:37)
[2016-05-11] MEDS: Tiotropium 18mcg/Cap 5 Capsule Inhaler Kit INHALATION SCH (10:25)
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
[2016-05-11] MEDS ORDERED: Heparin 25K Unit/500mL 0.45 NS 25,000 UNIT in IV Premix 1 EACH IV SCH (11:25)
[2016-05-11] MEDS: Pantoprazole 40 mg ER24 Tablet PO SCH (12:06)
[2016-05-11] MEDS: 0.9% Sodium Chloride 500 ML IV PRN (12:09)
--- NOTE | 2016-05-11 12:13 | PROG NOTE ---
[address] [address] PROGRESS NOTE PATIENT: ZOILA ALFRED : 1955 MR#: [id number] ADMIT: 05/08/2016 JOB ID: [id number] DATE: 05/11/2016 SUBJECTIVE: The patient is seen on postoperative day two from his emergency exploratory laparotomy with splenectomy. Over the last 24 hours, he has remained relatively hemodynamically normal. He is complaining of some incisional pain but otherwise seems to be doing well. He has been tolerating a regular diet. OBJECTIVE: He is afebrile and hemodynamically normal this morning. He is alert and oriented. He appears mildly uncomfortable and a little bit sleepy. His incision is inspected and is clean, dry and intact. His abdomen is soft and appropriately tender. His BIB drain remains in place and the output is thin serosanguinous fluid. Over the last 24 hours he had a total of 1.3 urine out with an additional 600 overnight. The BIB drain had 615 cc yesterday with initial 190 overnight. His white blood cell count is 14.6, down from 19.3. His hematocrit dropped from 32.4 yesterday to 26.8 this morning. It has been rechecked, and is slowly come back up to 28.1. Platelet count this morning was 111. His creatinine has normalized to 1.17. ASSESSMENT AND PLAN: This is a 60-year-old man on Coumadin who had a splenic rupture of unknown etiology. Postop day two from splenectomy. Overall, he seems to be doing well. I discussed heparin drip management with the Hospitalist team. At this point, I think it is reasonable to restart that, given his thrombotic risks from two mechanical valves. I recommend a low dose, no bolus protocol. We should continue to check his hematocrits at once every 8 hours. His platelet count should be checked on a daily basis. If his platelets reached over a million, then he should be started on low-dose aspirin. BIB drain amylase has been ordered for tomorrow. If this is normal and his output continues to taper down, eventually that drain will come out in the next few days. If it indicates a pancreatic leak, it will have to remain in place for likely a week or more.
--- NOTE | 2016-05-11 15:43 | PCM.PNMED ---
Subjective Date of Service May 11, 2016 Subjective Ron Cárdenas is a 60-year-old male with a history of coronary artery disease status post single-vessel bypass graft, mechanical bivalvular replacement chronically anticoagulated on warfarin, arteriovenous malformation with prior GI bleeding, and hepatitis C who presented to the [facility] ED via EMS for abrupt onset shortness of breath and weakness x1 week who was found to be hypotensive and severely anemic on arrival and was subsequently admitted for possible acute GI bleed. He was found to have an atraumatic splenic rupture now status post splenectomy and extubation. Hospital day #4. Overnight the patient was hypotensive and received 750 mL of NS. Per nurse report, patient is normotensive while awake, however, he seems to be hypotensive while sleeping. Telemetry overnight: Sinus rhythm, heart rate 60-90 's, with IVCD and occasional PAC. The patient is resting in bed comfortably and in no acute distress. The patient denies headache, double vision, lightheadedness or dizziness, more shortness of breath from baseline, chest pain, palpitations, nausea, vomiting, dysuria, diarrhea or constipation. The patient reports normal appetite and is eating without difficulty. The patient is voiding without difficulty. He has not had a bowel movement since admission. He is up with physical therapy and ambulating with a walker. . Exam Vital Signs Vital Sign - Last Date Time Temp Pulse Resp B/P Pulse Ox O2 Delivery O2 Flow Rate FiO2 05/11/16 12:42 76/46 05/11/16 11:58 37.0 72 16 95 Nasal Cannula 1.00 05/10/16 07:36 40 Intake and Output 05/10/16 05/10/16 05/11/16 Cumulative From/Thru 15:00 23:00 07:00 05/08/16 17:04 - 05/11/16 06:24 Intake Total 1811 ml 1400 ml 62718 ml Output Total 1000 ml 790 ml 87723 ml Balance 811 ml 610 ml 7081 ml Intake Oral 560 ml 600 ml 1760 ml IV Total 1251 ml 800 ml 04118 ml Autotransfusion 1750 ml Packed Cells 3043 ml Output Urine Total 750 ml 600 ml 3975 ml Gastric Drainage Total 190 ml Drainage Total 250 ml 190 ml 1035 ml Estimated Blood Loss 6000 ml # Bowel Movements 0 0 Exam General: Older thin gentleman lying in bed and in no acute distress, well- developed, well-nourished, somnolent. HEENT: Normocephalic, atraumatic. External ears without defect. Pupils equal, round, and reactive to light. Injected conjunctiva. Oropharynx free of erythema and cobble stoning with moist mucosa. Neck: Supple with full range of motion. No jugular venous distension. No lymphadenopathy or thyromegaly. Cardiovascular: Regular rate and rhythm with ejection click.No rubs, or gallops appreciated. Pulmonary: Clear to auscultation bilaterally with no crackles, wheezes, or rhonchi. Normal respiratory effort with no use of accessory muscles. Abdomen: Soft, nondistended, bowel tones present. Tender to palpation. Surgical dressing in place with dried heme and BIB drain in LUQ. Extremities: No clubbing, cyanosis, or edema. Skin: Normal temperature, turgor, and texture; no rash, ulcers, or subcutaneous nodules appreciated. Neurological: Cranial nerves grossly intact. No known gait impairment. Psychiatric: Normal mood and affect. Alert and oriented to person, place, and time. IV drips and Sedatives: Hydromorphone [employer]. IV lines: IJ Central line. Left AC peripheral IV and right forearm peripheral IV. I&O: Net + [id number]. . IVs and Medications Medications Reviewed: Medications were reviewed in detail Lab and Diagnostics Item Value Date Time Calcium Level 7.5 mg/dL L 05/11/16 0445 Phosphorus Level 2.2 mg/dL L 05/11/16 0445 Magnesium Level 2.2 mg/dL 05/11/16 0445 Albumin 2.6 g/dL L 05/10/16 0300 Result Diagram: 05/11/16 1000 05/11/16 0445 Microbiology Blood culture x2 show no growth after 24 hours. MRSA screen negative. Sputum culture shows insufficient growth and re-intubation resulted MSSA. . X-Rays, CTs and MRIs X-RAY CHEST ONE VIEW, PORTABLE IMPRESSION: No acute cardio pulmonary disease. Dictated by: Suly Cao M.D. on 05/08/2016 at 18:58 Approved by: Suly Cao M.D. on 05/08/2016 at 18:58 CT ABDOMEN AND PELVIS WITHOUT CONTRAST IMPRESSION: 1. Large amount of hemoperitoneum, which appears to be arising from the spleen, as there is a large amount of subcapsular splenic hemorrhage, as well as a clot inferior to the spleen. 2. Small right pleural effusion. 3. Mild aneurysmal dilatation of the infrarenal abdominal aorta. 4. The previously seen mass adjacent to the right posterior urinary bladder is suboptimally evaluated on the current examination. 5. Findings discussed with Dr. Ayala on 05.09.16 at 1100 hrs. Dictated by: Dede Prado M.D. on 05/09/2016 at 11:21 Approved by: Dede Prado M.D. on 05/09/2016 at 11:21 Assessment & Plan Ron Cárdenas is a 60-year-old male with a history of coronary artery disease status post single-vessel bypass graft, mechanical bivalvular replacement chronically anticoagulated on warfarin, arteriovenous malformation with prior GI bleeding, and hepatitis C who presented to the [facility] ED via EMS for abrupt onset shortness of breath and weakness x1 week who was found to be hypotensive and severely anemic on arrival and was subsequently admitted for possible acute GI bleed. He was found to have an atraumatic splenic rupture now status post splenectomy and extubation. Hospital day #4. 1. Acute splenic rupture, status post splenectomy, present on admission. Active. - Patient denies recent history of trauma to his abdomen. Differential diagnosis includes: Subacute trauma versus anticoagulation versus lymphoma. Clinically no signs of trauma. - Stat CT abdomen and pelvis with oral contrast revealed subcapsular splenic hemorrhage with large hemoperitoneum. - Supra-therapeutic INR (4.96); 1.2 prior to surgery. - Hemodynamically stable post-op day #2. Per Dr. Ovalle drop in hemoglobin and hematocrit are common postoperative changes and most likely. Patient received massive transfusion and in total: 12 U PRBC's, 7U of FFP and 10mg of Vit K. - Continue to monitor hemoglobin and hematocrit closely. - Pulmonology/Critical Care team consulted and now signed off. We appreciate their time and care of the patient. 2. Acute blood loss anemia, present on admission. Ongoing. - Patient received massive transfusion and in total: 12 U PRBC's, 7U of FFP and 10mg of Vit K. - Per Dr. Ovalle drop in hemoglobin and hematocrit are common postoperative changes and most likely. - Continue to monitor hemoglobin and hematocrit closely. - Blood pressures labile while sleeping and the patient is normotensive when awake. 3. Possible acute GI bleed, present on admission. Active. - Patient has a history of multiple GI bleeds with AVM's noted on prior endoscopy. Patient reports melena prior to admission. - H/H significantly improved following urgent splenectomy, which is likely source for acute blood loss anemia. - GI consulted and signed off. We appreciate their time and care of this patient. Will contact if there is further GI bleeding. - Monitor hemoglobin and hematocrit closely and any signs of bleeding (Ii.e. melena or hematochezia). - Continue PPI, as pt now on ventilator. 4. History of mechanical bivalvular replacement. Stable. - Continue holding warfarin in setting of acute bleed and post-op for several more days. - Supra-therapeutic INR on admission (4.96), 1.2 prior to surgery. - Started heparin 24-36 hours post-op per surgeries clearance. 5. Acute kidney injury, present on admission. Resolved. - Baseline creatinine 1.0 and estimated GFR > 60 one month ago, therefore, likely does not have CKD as previously reported. - Likely prerenal secondary to hypoperfusion due to acute bleed. - Continue IV fluids. - Avoid nephrotoxic agents. - Continue to monitor creatinine and urine output daily. 6. Hyperkalemia, unknown chronicity, present on admission. Resolved. - Potassium 6.0 on admission. Received Kayexalate in the ED. - Continue to monitor closely. 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 Resolved. - Patient now reportedly with recurrence of Hodgkin's lymphoma in his groin. - Required radiation as child which ultimately caused valvular disease. - Discussed the patient with his oncologist Dr. Guardado who recently performed a PET scan which showed no active disease within the spleen. Chronic hepatitis C, present on admission. Presumed stable. 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 - Continue home antivirals. 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 Presumed Stable. High-risk medications: IV hydromorphone Disposition: Several days after warfarin is restarted and is therapeutic. . GI Prophylaxis: Proton Pump Inhibitor VTE Prophylaxis: SCDs VTE Mechanical Devices: Intermittant Pneumatic CD Resuscitation Status: CPR: Attempt Resuscitation Attending Statement The patient was seen and examined together with Dr. Farley on 05-11-16 and I agree with the history, exam and plan as outlined in the note above. Linnea Farley DO May 11, 2016 15:43 JoseE duardo Nguyen MD May 12, 2016 16:43
[2016-05-11] MEDS: Heparin Protocol Boluses IVPUSH PRN (19:43)
[2016-05-12] VITALS (13 sets, daily range): BP systolic 113–168; BP diastolic 57–71; PULSE 77–85; RESP 16–24; O2SAT 97–100
[2016-05-12] MEDS: Sodium Chloride LOK Flush 10 mL Syringe IVFLUSH SCH ×4 (00:30→21:38)
[2016-05-12 01:04] LABS: INR 0.94 ratio
[2016-05-12] MEDS: Heparin Protocol Boluses IVPUSH PRN ×3 (02:41→19:03)
[2016-05-12 06:05] LABS: BASOPHILS % (AUTO) 0.3 % (0-3); EOSINOPHILS % (AUTO) 3.8 % (0-5); MONOCYTES % (AUTO) 13.3 % (4-12); Mean Corpuscular Hemoglobin 29.5 pg (27.0-35.0); Mean Corpuscular Volume 89.5 fL (81-100); NEUTROPHILS % (AUTO) 70.8 % (40-74); Platelet Count 152 bil/L (150-400)
[2016-05-12 06:29] LABS: INR 0.97 ratio
[2016-05-12] MEDS: EPCLUSA PO SCH (09:19)
[2016-05-12] MEDS: Fluticasone-Salmererol 250-50 Inhaler INHALATION SCH ×2 (09:20→21:38)
[2016-05-12] MEDS: Tiotropium 18mcg/Cap 5 Capsule Inhaler Kit INHALATION SCH (09:20)
--- NOTE | 2016-05-12 10:32 | PROG NOTE ---
[address] [address] PROGRESS NOTE PATIENT: ZOILA ALFRED : 1955 MR#: [id number] ADMIT: 05/08/2016 JOB ID: [id number] DATE: 05/12/2016 SUBJECTIVE: Status post splenectomy. He remains afebrile, stable vital signs. His incision is healing well. Sher-Ingram drain continues to put out a fair amount of serosanguineous fluid, though more serous. There was 400 cc out yesterday. Labs show hematocrit of 25.5, which is trending downward slightly but not much over the past 24 hours. His white count is 13.3. IMPRESSION AND PLAN: Doing well. He is currently on a soft diet and we can leave him there. We will check a CBC tomorrow to make sure his hematocrit is stable. Sher-Ingram amylase has been ordered and I will make certain that the nurses draw that up and send it off to the lab.
[2016-05-12] MEDS: Pantoprazole 40 mg ER24 Tablet PO SCH (12:47)
[2016-05-12] MEDS: Heparin 25K Unit/500mL 0.45 NS 25,000 UNIT in IV Premix 1 EACH IV SCH (13:08)
--- NOTE | 2016-05-12 17:39 | PCM.PNMED ---
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 He was found to have an atraumatic splenic rupture now status post splenectomy and extubation. Hospital day #4. Overnight the patient was hypotensive and per nurse report, patient is normotensive while awake, however, he seems to be hypotensive while sleeping. Telemetry overnight: Sinus rhythm, heart rate 60-90's, with IVCD and occasional PAC. The patient was febrile overnight and blood cultures were obtained. The patient is resting in bed comfortably and in no acute distress. The patient denies headache, double vision, lightheadedness or dizziness, more shortness of breath from baseline, chest pain, palpitations, nausea, vomiting, dysuria, diarrhea or constipation. He endorses superficial and reproducible left shoulder pain and intermittent surgical site pain. The patient reports normal appetite and is eating without difficulty. The patient is voiding without difficulty. He has not had a bowel movement since admission. He is up with physical therapy and ambulating with a walker. . Exam Vital Signs Vital Sign - Last Date Time Temp Pulse Resp B/P Pulse Ox O2 Delivery O2 Flow Rate FiO2 05/12/16 16:53 Supplement Oxygen 05/12/16 15:33 36.3 77 16 130/57 98 1.50 05/10/16 07:36 40 Intake and Output 05/11/16 05/11/16 05/12/16 Cumulative From/Thru 15:00 23:00 07:00 05/08/16 17:04 - 05/12/16 06:51 Intake Total 1770 ml 679 ml 95159 ml Output Total 710 ml 705 ml 83568 ml Balance 1060 ml -26 ml 8115 ml Intake Oral 920 ml 300 ml 2980 ml IV Total 850 ml 379 ml 23836 ml Autotransfusion 1750 ml Packed Cells 3043 ml Output Urine Total 500 ml 450 ml 4925 ml Gastric Drainage Total 190 ml Drainage Total 210 ml 255 ml 1500 ml Estimated Blood Loss 6000 ml # Voids 2 2 # Bowel Movements 0 Exam General: Older thin gentleman lying in bed and in no acute distress, well- developed, well-nourished, somnolent. HEENT: Normocephalic, atraumatic. External ears without defect. Pupils equal, round, and reactive to light. Injected conjunctiva. Oropharynx free of erythema and cobble stoning with moist mucosa. Neck: Supple with full range of motion. No jugular venous distension. No lymphadenopathy or thyromegaly. Cardiovascular: Regular rate and rhythm with ejection click.No rubs, or gallops appreciated. Pulmonary: Clear to auscultation bilaterally with no crackles, wheezes, or rhonchi. Normal respiratory effort with no use of accessory muscles. Abdomen: Soft, nondistended, bowel tones present. Tender to palpation. Surgical wound without exudate and mild erythema and BIB drain in LUQ with dressing in place. Extremities: No clubbing, cyanosis, or edema. Skin: Normal temperature, turgor, and texture; no rash, ulcers, or subcutaneous nodules appreciated. Neurological: Cranial nerves grossly intact. No known gait impairment. Psychiatric: Normal mood and affect. Alert and oriented to person, place, and time. . IVs and Medications Medications Reviewed: Medications were reviewed in detail Lab and Diagnostics Result Diagram: 05/12/16 0530 05/12/16 0530 Microbiology Blood culture x2 show no growth after 2 days. Repeat blood cultures x2 pending. MRSA screen negative. Sputum culture shows insufficient growth and re -intubation resulted MSSA. . X-Rays, CTs and MRIs X-RAY CHEST ONE VIEW, PORTABLE IMPRESSION: No acute cardio pulmonary disease. Dictated by: Suly Cao M.D. on 05/08/2016 at 18:58 Approved by: Suly Cao M.D. on 05/08/2016 at 18:58 CT ABDOMEN AND PELVIS WITHOUT CONTRAST IMPRESSION: 1. Large amount of hemoperitoneum, which appears to be arising from the spleen, as there is a large amount of subcapsular splenic hemorrhage, as well as a clot inferior to the spleen. 2. Small right pleural effusion. 3. Mild aneurysmal dilatation of the infrarenal abdominal aorta. 4. The previously seen mass adjacent to the right posterior urinary bladder is suboptimally evaluated on the current examination. 5. Findings discussed with Dr. Ayala on 05.09.16 at 1100 hrs. Dictated by: Dede Prado M.D. on 05/09/2016 at 11:21 Approved by: Dede Prado M.D. on 05/09/2016 at 11:21 Assessment & Plan Ron Cárdenas is a 60-year-old male with a history of coronary artery disease status post single-vessel bypass graft, mechanical bivalvular replacement chronically anticoagulated on warfarin, arteriovenous malformation with prior GI bleeding, and hepatitis C who presented to the [facility] ED via EMS for abrupt onset shortness of breath and weakness x1 week who was found to be hypotensive and severely anemic on arrival and was subsequently admitted for possible acute GI bleed. He was found to have an atraumatic splenic rupture now status post splenectomy and extubation. Hospital day #4. 1. Acute splenic rupture, status post splenectomy, present on admission. Active. - Patient denies recent history of trauma to his abdomen. Differential diagnosis includes: Subacute trauma versus anticoagulation versus lymphoma. Clinically no signs of trauma. - Stat CT abdomen and pelvis with oral contrast revealed subcapsular splenic hemorrhage with large hemoperitoneum. - Supra-therapeutic INR (4.96); 1.2 prior to surgery. - Hemodynamically stable post-op day #2. Per Dr. Ovalle drop in hemoglobin and hematocrit are common postoperative changes and most likely. Patient received massive transfusion and in total: 12 U PRBC's, 7U of FFP and 10mg of Vit K. - Continue to monitor hemoglobin and hematocrit closely. - Patient is expected to have a leukocytosis in the 15,000 -20,000 range per infectious disease. - Pulmonology/Critical Care team consulted and now signed off. We appreciate their time and care of the patient. 2. Acute blood loss anemia, present on admission. Ongoing. - Patient received massive transfusion and in total: 12 U PRBC's, 7U of FFP and 10mg of Vit K. - Per Dr. Ovalle drop in hemoglobin and hematocrit are common post-operative changes and most likely. - Continue to monitor hemoglobin and hematocrit closely. - Blood pressures labile while sleeping and the patient is normotensive when awake. 3. Possible acute GI bleed, present on admission. Active. - Patient has a history of multiple GI bleeds with AVM's noted on prior endoscopy. Patient reports melena prior to admission. - H/H significantly improved following urgent splenectomy, which is likely source for acute blood loss anemia. - GI consulted and signed off. We appreciate their time and care of this patient. Will contact if there is further GI bleeding. - Monitor hemoglobin and hematocrit closely and any signs of bleeding (Ii.e. melena or hematochezia). - Continue PPI, as pt now on ventilator. 4. History of mechanical bivalvular replacement. Stable. - Continue holding warfarin in setting of acute bleed and post-op for several more days. - Supra-therapeutic INR on admission (4.96), 1.2 prior to surgery. - Started heparin 24-36 hours post-op per surgeries clearance. Awaiting surgeries recommendations on restarting warfarin. 5. Acute kidney injury, present on admission. Resolved. - Baseline creatinine 1.0 and estimated GFR > 60 one month ago, therefore, likely does not have CKD as previously reported. - Likely prerenal secondary to hypoperfusion due to acute bleed. - Continue IV fluids. - Avoid nephrotoxic agents. - Continue to monitor creatinine and urine output daily. 6. Hyperkalemia, unknown chronicity, present on admission. Resolved. - Potassium 6.0 on admission. Received Kayexalate in the ED. - Continue to monitor closely. 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 Resolved. - Patient now reportedly with recurrence of Hodgkin's lymphoma in his groin. - Required radiation as child which ultimately caused valvular disease. - Discussed the patient with his oncologist Dr. Guardado who recently performed a PET scan which showed no active disease within the spleen. Chronic hepatitis C, present on admission. Presumed stable. 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 - Continue home antivirals. 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 Presumed Stable. High-risk medications: IV hydromorphone Disposition: Several days after warfarin is restarted and INR is therapeutic. . GI Prophylaxis: Proton Pump Inhibitor VTE Prophylaxis: SCDs VTE Mechanical Devices: Intermittant Pneumatic CD Resuscitation Status: CPR: Attempt Resuscitation Attending Statement The patient was seen and examined together with Dr. Farley on 05-12-16 and I agree with the history, exam and plan as outlined in the note above. Linnea Farley DO May 12, 2016 17:39 Jose Eduardo Nguyen MD May 13, 2016 09:02
[2016-05-12] MEDS: HYDROmorphone PCA 0.2 mg/mL 30 mL Inj IV PRN (17:40)
[2016-05-13] VITALS (16 sets, daily range): BP systolic 99–165; BP diastolic 54–68; PULSE 78–92; RESP 16–21; O2SAT 92–99
[2016-05-13] MEDS: Heparin Protocol Boluses IVPUSH PRN ×2 (00:41→12:53)
[2016-05-13 05:35] LABS: BASOPHILS % (AUTO) 0.2 % (0-3); EOSINOPHILS % (AUTO) 5.9 % (0-5); MONOCYTES % (AUTO) 14.2 % (4-12); Mean Corpuscular Hemoglobin 29.2 pg (27.0-35.0); Mean Corpuscular Volume 90.2 fL (81-100); NEUTROPHILS % (AUTO) 69.4 % (40-74); Platelet Count 228 bil/L (150-400)
[2016-05-13 05:57] LABS: Magnesium 1.7 mg/dL (1.6-2.6)
[2016-05-13] MEDS: Tiotropium 18mcg/Cap 5 Capsule Inhaler Kit INHALATION SCH (09:06)
[2016-05-13] MEDS: Fluticasone-Salmererol 250-50 Inhaler INHALATION SCH ×2 (09:06→21:02)
[2016-05-13] MEDS: Sodium Chloride LOK Flush 10 mL Syringe IVFLUSH SCH ×3 (09:08→21:02)
[2016-05-13] MEDS: EPCLUSA PO SCH (09:08)
[2016-05-13] MEDS: Heparin 25K Unit/500mL 0.45 NS 25,000 UNIT in IV Premix 1 EACH IV SCH (09:24)
--- NOTE | 2016-05-13 11:06 | DRSVH ---
PROCEDURE: X-RAY CHEST ONE VIEW, PORTABLE ([id number]) INDICATIONS: cough TECHNIQUE: One view of the chest was acquired. COMPARISON: None. FINDINGS: Surgical changes and devices: ekg monitor tech leads are seen over the chest. Sternotomy wires and hea rt valves are present. There is a right internal jugular catheter with the tip at the level of the az ygos vein there is a catheter or drainage catheter in the left upper quadrant of the abdomen. Lungs and pleura: There has developed in the right lower lobe a patchy infiltrate with a minuscule ef fusion seen through the hemidiaphragm. Mediastinum: Mediastinal contours appear normal. Heart size is normal. Bones and chest wall: No suspicious bony lesions. Overlying soft tissues appear unremarkable. IMPRESSION: Right lower lobe pneumonia with minimal effusion. Dictated by: Toñito Mary M.D. on 05/13/2016 at 11:04 Approved by: Toñito Mary M.D. on 05/13/2016 at 11:04
[2016-05-13] MEDS: Pantoprazole 40 mg ER24 Tablet PO SCH ×2 (13:41→21:01)
--- NOTE | 2016-05-13 16:03 | PROG NOTE ---
[address] [address] PROGRESS NOTE PATIENT: ZOILA ALFRED : 1955 MR#: [id number] ADMIT: 05/08/2016 JOB ID: [id number] DATE: 05/13/2016 SUBJECTIVE: Afebrile. Stable vital signs. Sher-Ingram drain continues to have a fair amount of serosanguineous fluid, more serous than sanguinous, and was recorded at 455 over the previous 24 hours. He is tolerating p.o. well. His incision is healing well. His hematocrit is stable at 27.5 and his platelet count is 228,000. Electrolytes are normal. Albumin is 2.5. IMPRESSION AND PLAN: Doing well. Could be transitioned over to Coumadin from a general surgical point of view at this point. In the Sher-Ingram drain amylase was low but the drain will remain for the day due to its volume.
--- NOTE | 2016-05-13 16:03 | PCM.PNMED ---
Subjective Date of Service May 13, 2016 Subjective 60-year-old man with symptomatic dyspnea due to anemia now status post splenectomy. The patient endorses incisional pain but abdomen is otherwise not painful. Continues to feel weak. He has ambulated in the hallway without presyncope. Exam Vital Signs Vital Sign - Last Date Time Temp Pulse Resp B/P Pulse Ox O2 Delivery O2 Flow Rate FiO2 05/13/16 14:34 36.8 82 18 99/56 92 Room Air 05/13/16 04:56 2.00 05/10/16 07:36 40 Intake and Output 05/12/16 05/12/16 05/13/16 Cumulative From/Thru 15:00 23:00 07:00 05/08/16 17:04 - 05/13/16 06:20 Intake Total 1178 ml 510 ml 64702 ml Output Total 2565 ml 835 ml 53576 ml Balance -1387 ml -325 ml 6403 ml Intake Oral 800 ml 200 ml 3980 ml IV Total 378 ml 310 ml 48334 ml Autotransfusion 1750 ml Packed Cells 3043 ml Output Urine Total 2365 ml 700 ml 7990 ml Gastric Drainage Total 190 ml Drainage Total 200 ml 135 ml 1835 ml Estimated Blood Loss 6000 ml # Voids 2 # Bowel Movements 0 Exam General: Somewhat ill-appearing man in no acute distress HEENT: sclerae anicteric, oral mucosa moist Neck: no JVD Chest: clear to auscultation Cardiac: S1S2, II/ SE murmur with prosthetic S2 Abdomen: BS normal, non-tender, incision line with minimal tenderness Extremities: No acute asymmetry or focal swelling Neuro: A&O, cranial nerves symmetric, motor strength and coordination grossly normal Lab and Diagnostics Result Diagram: 05/13/16 0530 05/13/16 0530 Microbiology Blood culture x2 show no growth after 2 days. Repeat blood cultures x2 pending. MRSA screen negative. Sputum culture shows insufficient growth and re -intubation resulted MSSA. . X-Rays, CTs and MRIs X-RAY CHEST ONE VIEW, PORTABLE IMPRESSION: No acute cardio pulmonary disease. Dictated by: Suly Cao M.D. on 05/08/2016 at 18:58 Approved by: Suly Cao M.D. on 05/08/2016 at 18:58 CT ABDOMEN AND PELVIS WITHOUT CONTRAST IMPRESSION: 1. Large amount of hemoperitoneum, which appears to be arising from the spleen, as there is a large amount of subcapsular splenic hemorrhage, as well as a clot inferior to the spleen. 2. Small right pleural effusion. 3. Mild aneurysmal dilatation of the infrarenal abdominal aorta. 4. The previously seen mass adjacent to the right posterior urinary bladder is suboptimally evaluated on the current examination. 5. Findings discussed with Dr. Ayala on 05.09.16 at 1100 hrs. Dictated by: Dede Prado M.D. on 05/09/2016 at 11:21 Approved by: Dede Prado M.D. on 05/09/2016 at 11:21 Assessment & Plan Ron Cárdenas is a 60-year-old male with a history of coronary artery disease status post single-vessel bypass graft, mechanical bivalvular replacement chronically anticoagulated on warfarin, arteriovenous malformation with prior GI bleeding, and hepatitis C who presented to the [facility] ED via EMS for abrupt onset shortness of breath and weakness x1 week who was found to be hypotensive and severely anemic on arrival and was subsequently admitted for possible acute GI bleed. He was found to have an atraumatic splenic rupture now status post splenectomy on 05/09 08/20 and extubation. Hospital day #5. 1. Acute splenic rupture, status post splenectomy, present on admission. Active. CT abdomen and pelvis with oral contrast revealed subcapsular splenic hemorrhage with large hemoperitoneum. Patient denies recent history of trauma to his abdomen. Supra-therapeutic INR (4.96); 1.2 prior to surgery. - Hemodynamically stable post-op. - Continue to monitor 2. Acute blood loss anemia, present on admission. Ongoing. - Patient received massive transfusion and in total: 12 U PRBC's, 7U of FFP and 10mg of Vit K. - Continue to monitor hemoglobin and hematocrit closely. - Blood pressures labile while sleeping and the patient is normotensive when awake. 3. Possible acute GI bleed, present on admission. Active. - Patient has a history of multiple GI bleeds with AVM's noted on prior endoscopy. Patient reports melena prior to admission. - H/H significantly improved following urgent splenectomy, which is likely source for acute blood loss anemia. - GI consulted and signed off. - Monitor hemoglobin and hematocrit closely and any signs of bleeding (Ii.e. melena or hematochezia). 4. History of mechanical bivalvular replacement. Stable. - Continue holding warfarin in setting of acute bleed and post-op for several more days. - Supra-therapeutic INR on admission (4.96), 1.2 prior to surgery. - Started heparin 24-36 hours post-op per surgeries clearance. Awaiting Surgery recommendations on timing to restart warfarin. 5. Acute kidney injury, present on admission. Resolved. Serum creatinine 1.6 300 admission, resolved to 0.9 - Continue to monitor creatinine and urine output daily. 6. Hyperkalemia, unknown chronicity, present on admission. Resolved. - Potassium 6.0 on admission. Received Kayexalate in the ED. - Continue to monitor closely. 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 Resolved. - Patient now reportedly with recurrence of Hodgkin's lymphoma in his groin. - Required radiation as child which ultimately caused valvular disease. - Discussed the patient with his oncologist Dr. Guardado who recently performed a PET scan which showed no active disease within the spleen. Chronic hepatitis C, present on admission. Presumed stable. 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 - Continue home antivirals. 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 Presumed Stable. High-risk medications: IV hydromorphone Disposition: Pending postsurgical recovery. Several days after warfarin is restarted and INR is therapeutic. . GI Prophylaxis: Proton Pump Inhibitor VTE Prophylaxis: SCDs VTE Mechanical Devices: Intermittant Pneumatic CD Resuscitation Status: CPR: Attempt Resuscitation Time spent 30 minutes Trenton Alanis MD May 13, 2016 16:03
[2016-05-13] MEDS: 0.9% Sodium Chloride 500 ML IV PRN (16:28)
[2016-05-14] VITALS (11 sets, daily range): BP systolic 117–150; BP diastolic 54–67; PULSE 74–85; RESP 16–20; O2SAT 95–98
[2016-05-14] MEDS: Heparin 25K Unit/500mL 0.45 NS 25,000 UNIT in IV Premix 1 EACH IV SCH ×2 (01:37→17:00)
[2016-05-14 05:40] LABS: Mean Corpuscular Hemoglobin 28.9 pg (27.0-35.0); Mean Corpuscular Volume 89.5 fL (81-100)
[2016-05-14] MEDS: HYDROmorphone PCA 0.2 mg/mL 30 mL Inj IV PRN (07:25)
[2016-05-14 08:19] LABS: INR 0.97 ratio
[2016-05-14] MEDS: Tiotropium 18mcg/Cap 5 Capsule Inhaler Kit INHALATION SCH (09:14)
[2016-05-14] MEDS: Fluticasone-Salmererol 250-50 Inhaler INHALATION SCH ×2 (09:14→21:41)
[2016-05-14] MEDS: EPCLUSA PO SCH (09:16)
[2016-05-14] MEDS: Sodium Chloride LOK Flush 10 mL Syringe IVFLUSH SCH ×2 (09:17→17:00)
--- NOTE | 2016-05-14 10:34 | PATH ---
SURGICAL PATHOLOGY Attending Physician:Josue Ovalle MD CASE STATUS: Signed Out PATIENT NAME: ZOILA ALFRDE PID: [id number] : 1955 DATE COLLECTED:05/09/2016 00:00 SPECIMEN: Spleen CLINICAL HISTORY: RUPTURED SPLEEN 1). SPLEEN FINAL DIAGNOSIS: 1.SPLEEN: RUPTURED SPLEEN. NO EVIDENCE OF MALIGNANCY. HILAR LYMPH NODE WITH NO EVIDENCE OF MALIGNANCY. ICD10 CODE F36.09XA GROSS DESCRIPTION: The specimen is received in formalin, labeled with the patient's name, sublabeled as spleen and consists of a spleen (307 g, 15.5 x 10.5 x 5.5 cm). Approximately 75% of the outer surface of the capsule is absent, exposing a red-brown rough surface. In the remaining capsule surface is garcias with solis speckles. The hilum is intact. A possible lymph node (0.2 x 0.1 x 0.1 cm) is identified. The parenchyma is red-brown with no nodules, masses or lesions identified. 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 05/11/16 JM MICRO DESCRIPTION: See diagnosis. ICD-9 CODES: CPT CODES: 1: 77344 Electronically Signed Out Bernardo Williamson MD [facility] [address], [place] [address] Technical component performed at [facility], [facility] [address], [place], [address]
--- NOTE | 2016-05-14 11:01 | PROG NOTE ---
[address] [address] PROGRESS NOTE PATIENT: ZOILA ALFRED : 1955 MR#: [id number] ADMIT: 05/08/2016 JOB ID: [id number] DATE: 05/14/2016 SUBJECTIVE: The patient is postoperative day five emergency splenectomy for splenic rupture. Over the weekend, the patient has been doing well. He has been on a heparin drip without any evidence of bleeding. He is tolerating a regular diet. His drain amylase was measured a couple of days ago and was 17. OBJECTIVE: This morning, he is afebrile with a temp 36.5 degrees, heart rate 74 beats per minute. Blood pressure is 120/56. He is satting 95% on room air, with a respiratory rate of 20 breaths per minute. He did have a single febrile episode up to 37.6, recorded last night. This morning, he is alert, oriented and comfortable. His abdomen is soft, not significantly tender. Not distended. There is some erythema medially along the incision, which I suspect may be a reaction to the suture. It does not appear typical for a wound infection. His BIB drain has thin serous output. Over the last 24 hours, his BIB drain has put out 405 recorded out, with an initial of 200 overnight. He is making good urine. LABORATORY DATA: His white blood cell count remains mildly elevated at 13.2. His hematocrit is stable at 28.2. His platelet count is 287. His creatinine is 0.89. His albumin is 2.5. ASSESSMENT AND PLAN: This is a 60-year-old man with a mechanical heart valve, five days out from his emergency splenectomy for rupture of the spleen with internal hemorrhage. Overall, the patient is doing well. I removed his BIB drain this morning, as there is no evidence of pancreatic leak and he is having thin serous output, likely ascites related to his hypoalbuminemia. At this point, I think it is fine to start him on Coumadin. However, I recommend that the heparin drip be stopped before he is completely therapeutic on the Coumadin, as I have noticed that patients tend to bleed when they are therapeutic on both anticoagulants. To that end, I would recommend stopping his drip once his INR is around 1.7. When the patient is discharged, it is imperative that arrangements are made for him to receive the post splenectomy vaccines two weeks from his original surgical date. This includes Neisseria meningitidis, Haemophilus influenzae, and Streptococcus pneumoniae. Furthermore, he should be given a prescription for a single dose of Augmentin, with instructions that should he develop fevers or rigors, he should take that and then immediately seek medical attention. I will continue to follow along.
--- NOTE | 2016-05-14 14:46 | PCM.PNMED ---
Subjective Date of Service May 14, 2016 Subjective Pt had no acute events overnight. Patient has been seen and examined with no new complaints. Patient is ambulating without difficulty. Exam Vital Signs Vital Sign - Last Date Time Temp Pulse Resp B/P Pulse Ox O2 Delivery O2 Flow Rate FiO2 05/14/16 14:17 36.8 85 17 120/61 98 Room Air 05/13/16 04:56 2.00 05/10/16 07:36 40 Intake and Output 05/13/16 05/13/16 05/14/16 Cumulative From/Thru 15:00 23:00 07:00 05/08/16 17:04 - 05/14/16 05:50 Intake Total 1662 ml 402 ml 30993 ml Output Total 1520 ml 26101 ml Balance 142 ml 402 ml 6947 ml Intake Oral 1160 ml 5140 ml IV Total 502 ml 402 ml 97894 ml Autotransfusion 1750 ml Packed Cells 3043 ml Output Urine Total 1250 ml 9240 ml Gastric Drainage Total 190 ml Drainage Total 270 ml 2105 ml Estimated Blood Loss 6000 ml # Voids 2 # Bowel Movements 0 0 Exam General: Somewhat ill-appearing man in no acute distress HEENT: sclerae anicteric, oral mucosa moist Neck: no JVD Chest: clear to auscultation Cardiac: S1S2, II/ SE murmur with prosthetic S2 Abdomen: BS normal, non-tender, incision line with minimal tenderness, no bloody out put from drain Extremities: No acute asymmetry or focal swelling Neuro: A&O, cranial nerves symmetric, motor strength and coordination grossly normal Lab and Diagnostics Result Diagram: 05/14/16 0510 05/13/16 0530 Microbiology Blood culture x2 show no growth after 2 days. Repeat blood cultures x2 pending. MRSA screen negative. Sputum culture shows insufficient growth and re -intubation resulted MSSA. . X-Rays, CTs and MRIs X-RAY CHEST ONE VIEW, PORTABLE IMPRESSION: No acute cardio pulmonary disease. Dictated by: Suly Cao M.D. on 05/08/2016 at 18:58 Approved by: Suly Cao M.D. on 05/08/2016 at 18:58 CT ABDOMEN AND PELVIS WITHOUT CONTRAST IMPRESSION: 1. Large amount of hemoperitoneum, which appears to be arising from the spleen, as there is a large amount of subcapsular splenic hemorrhage, as well as a clot inferior to the spleen. 2. Small right pleural effusion. 3. Mild aneurysmal dilatation of the infrarenal abdominal aorta. 4. The previously seen mass adjacent to the right posterior urinary bladder is suboptimally evaluated on the current examination. 5. Findings discussed with Dr. Ayala on 05.09.16 at 1100 hrs. Dictated by: Dede Prado M.D. on 05/09/2016 at 11:21 Approved by: Dede Prado M.D. 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 He was found to have an atraumatic splenic rupture now status post splenectomy on 05/09 08/20 and extubation. Hospital day #5. 1. Acute splenic rupture, status post splenectomy, present on admission. Active. CT abdomen and pelvis with oral contrast revealed subcapsular splenic hemorrhage with large hemoperitoneum. Patient denies recent history of trauma to his abdomen. Supra-therapeutic INR (4.96); 1.2 prior to surgery. - Hemodynamically stable post-op. - Continue to monitor 2. Acute blood loss anemia, present on admission. Ongoing. - Patient received massive transfusion and in total: 12 U PRBC's, 7U of FFP and 10mg of Vit K. - Continue to monitor hemoglobin and hematocrit closely. - Blood pressures labile while sleeping and the patient is normotensive when awake. 3. Possible acute GI bleed, present on admission. Active. - Patient has a history of multiple GI bleeds with AVM's noted on prior endoscopy. Patient reports melena prior to admission. - H/H significantly improved following urgent splenectomy, which is likely source for acute blood loss anemia. 4. History of mechanical bivalvular replacement. Stable. - Continue holding warfarin in setting of acute bleed and post-op for several more days. - Supra-therapeutic INR on admission (4.96), 1.2 prior to surgery. - Started heparin 24-36 hours post-op per surgeries clearance. - will start warfarin tomorrow if H&H remains stable, will dc heparin drip on the second day of warfarin adminstration as per surgeries recs Chronic Problems: History of Burkitt's lymphoma as a child. Resolved. - Patient now reportedly with recurrence of Hodgkin's lymphoma in his groin. - Required radiation as child which ultimately caused valvular disease. - Discussed the patient with his oncologist Dr. Guardado who recently performed a PET scan which showed no active disease within the spleen. Chronic hepatitis C, present on admission. Presumed stable. 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 - Continue home antivirals. 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 Presumed Stable. High-risk medications: IV hydromorphone Disposition: Pending postsurgical recovery. Several days after warfarin is restarted and INR is therapeutic. . GI Prophylaxis: Proton Pump Inhibitor VTE Prophylaxis: SCDs VTE Mechanical Devices: Intermittant Pneumatic CD Resuscitation Status: CPR: Attempt Resuscitation Artis Stout MD May 14, 2016 14:46
[2016-05-14] MEDS: Heparin Protocol Boluses IVPUSH PRN (15:10)
[2016-05-14] MEDS: Pantoprazole 40 mg ER24 Tablet PO SCH (22:59)
[2016-05-15] VITALS (15 sets, daily range): BP systolic 104–120; BP diastolic 55–61; PULSE 71–84; RESP 16–20; O2SAT 90–97
[2016-05-15] MEDS: Sodium Chloride LOK Flush 10 mL Syringe IVFLUSH SCH ×3 (00:30→17:49)
[2016-05-15 07:18] LABS: INR 0.96 ratio
[2016-05-15] MEDS: Heparin Protocol Boluses IVPUSH PRN (08:18)
[2016-05-15] MEDS: Heparin 25K Unit/500mL 0.45 NS 25,000 UNIT in IV Premix 1 EACH IV SCH ×2 (08:19→22:39)
[2016-05-15] MEDS: EPCLUSA PO SCH (08:30)
[2016-05-15] MEDS: Tiotropium 18mcg/Cap 5 Capsule Inhaler Kit INHALATION SCH (09:46)
[2016-05-15] MEDS: Fluticasone-Salmererol 250-50 Inhaler INHALATION SCH ×2 (09:46→20:30)
--- NOTE | 2016-05-15 12:59 | PROG NOTE ---
[address] [address] PROGRESS NOTE PATIENT: ZOILA ALFRED : 1955 MR#: [id number] ADMIT: 05/08/2016 JOB ID: [id number] DATE: 05/15/2016 SUBJECTIVE: The patient is seen postoperative day six from his emergency splenectomy for splenic rupture. He continues to be well. I removed his drain yesterday. He is tolerating a diet. He remains on the heparin drip without signs of bleeding. OBJECTIVE: He has remained afebrile and hemodynamically normal. This morning, he is alert and oriented and comfortable. His abdomen is soft, nontender, nondistended. His incision looks fine. His BIB drain site is not leaking. ASSESSMENT AND PLAN: This is a 60-year-old man with two mechanical heart valves almost a week out from an emergency splenectomy for splenic rupture currently on a heparin drip. Overall, the patient continues to do well. The plan is to start Coumadin today. At this point, I am going to sign off. Please have him followup with me in a week. Feel free to call me if there are any questions regarding his vaccines or appropriate followup.
[2016-05-15] MEDS: HYDROmorphone PCA 0.2 mg/mL 30 mL Inj IV PRN (13:05)
--- NOTE | 2016-05-15 14:47 | PCM.PHAPRO ---
Progress Warfarin Management by Pharmacy: -Indication: pt with aortic and mitral valve replacement in 2012 -Home Med: warfarin 7.5mg daily -Inr Goal: 2.5-3.5 -Concurrent Anticoagulation: Heparin per cardiac infusion protocol -Inr today: 0.96 -Plan: pt had been admitted for emergent splenectomy and received phytonadione 10mg iv on 05/08 for supratherapeutic inr of 4.96. pt went to surg on 05/09. heparin infusion was started on 05/11. resuming warfarin this evening per hospitalist request and will give home dose of 7.5mg and follow Lindsey Pena [facility] May 15, 2016 14:47
[2016-05-15] MEDS ORDERED: Warfarin 5 MG, Warfarin 2.5 MG PO SCH ×2 (17:00)
[2016-05-15] MEDS: Pantoprazole 40 mg ER24 Tablet PO SCH (22:55)
[2016-05-15 22:59] LABS: INR 0.94 ratio
[2016-05-16] VITALS (14 sets, daily range): BP systolic 100–143; BP diastolic 53–70; PULSE 60–85; RESP 16–20; O2SAT 94–99
[2016-05-16] MEDS: Sodium Chloride LOK Flush 10 mL Syringe IVFLUSH SCH ×3 (00:30→16:30)
[2016-05-16] MEDS: Tiotropium 18mcg/Cap 5 Capsule Inhaler Kit INHALATION SCH (08:41)
[2016-05-16] MEDS: Fluticasone-Salmererol 250-50 Inhaler INHALATION SCH ×2 (08:41→20:42)
[2016-05-16] MEDS: EPCLUSA PO SCH (08:43)
[2016-05-16 11:08] LABS: INR 0.99 ratio
--- NOTE | 2016-05-16 12:17 | PCM.PHAPRO ---
Progress Warfarin Management by Pharmacy: -Indication: pt with aortic and mitral valve replacement in 2012 -Home Med: warfarin 7.5mg daily -Inr Goal: 2.5-3.5 -Concurrent Anticoagulation: Heparin per cardiac infusion protocol -Coa Trends: 05/15 Inr 0.96 warfarin 7.5mg 05/16 Inr 0.99 -Plan: pt had been admitted for emergent splenectomy and received phytonadione 10mg iv on 05/08 for supratherapeutic inr of 4.96. pt went to surg on 05/09. heparin infusion was started on 05/11. first dose of warfarin 7.5mg given on 05/15. inr remains subtherapeutic at 0.99 and will repeat dose of warfarin 7.5mg this evening Lindsey Pena [facility] May 16, 2016 12:17
[2016-05-16] MEDS: Heparin 25K Unit/500mL 0.45 NS 25,000 UNIT in IV Premix 1 EACH IV SCH (13:02)
[2016-05-16] MEDS ORDERED: Warfarin 5 MG, Warfarin 2.5 MG PO SCH ×2 (17:00)
[2016-05-16] MEDS: Heparin Protocol Boluses IVPUSH PRN (17:26)
--- NOTE | 2016-05-16 17:34 | PCM.PNMED ---
Subjective Date of Service May 16, 2016 Subjective Patient seen and examined. Patient doing well last night with no complaints. Patient was restarted on coumadin with no problems noted. Exam Vital Signs Vital Sign - Last Date Time Temp Pulse Resp B/P Pulse Ox O2 Delivery O2 Flow Rate FiO2 05/16/16 14:45 36.4 75 17 116/60 98 Room Air 05/13/16 04:56 2.00 05/10/16 07:36 40 Intake and Output 05/15/16 05/15/16 05/16/16 Cumulative From/Thru 15:00 23:00 07:00 05/08/16 17:04 - 05/16/16 06:14 Intake Total 1098 ml 1513 ml 1573 ml 69156 ml Output Total 1150 ml 1000 ml 70822 ml Balance 1098 ml 363 ml 573 ml 8321 ml Intake Oral 1060 ml 1040 ml 21041 ml IV Total 1098 ml 453 ml 533 ml 65574 ml Autotransfusion 1750 ml Packed Cells 3043 ml Output Urine Total 1150 ml 1000 ml 96724 ml Gastric Drainage Total 190 ml Drainage Total 2305 ml Estimated Blood Loss 6000 ml # Voids 7 # Bowel Movements 0 0 0 Lab and Diagnostics Result Diagram: 05/16/16 0510 05/13/16 0530 Microbiology Blood culture x2 show no growth after 2 days. Repeat blood cultures x2 pending. MRSA screen negative. Sputum culture shows insufficient growth and re -intubation resulted MSSA. . X-Rays, CTs and MRIs X-RAY CHEST ONE VIEW, PORTABLE IMPRESSION: No acute cardio pulmonary disease. Dictated by: Suly Cao M.D. on 05/08/2016 at 18:58 Approved by: Suly Cao M.D. on 05/08/2016 at 18:58 CT ABDOMEN AND PELVIS WITHOUT CONTRAST IMPRESSION: 1. Large amount of hemoperitoneum, which appears to be arising from the spleen, as there is a large amount of subcapsular splenic hemorrhage, as well as a clot inferior to the spleen. 2. Small right pleural effusion. 3. Mild aneurysmal dilatation of the infrarenal abdominal aorta. 4. The previously seen mass adjacent to the right posterior urinary bladder is suboptimally evaluated on the current examination. 5. Findings discussed with Dr. Ayala on 05.09.16 at 1100 hrs. Dictated by: Dede Prado M.D. on 05/09/2016 at 11:21 Approved by: Dede Prado M.D. on 05/09/2016 at 11:21 Assessment & Plan Ron Cárdenas is a 60-year-old male with a history of coronary artery disease status post single-vessel bypass graft, mechanical bivalvular replacement chronically anticoagulated on warfarin, arteriovenous malformation with prior GI bleeding, and hepatitis C who presented to the [facility] ED via EMS for abrupt onset shortness of breath and weakness x1 week who was found to be hypotensive and severely anemic on arrival and was subsequently admitted for possible acute GI bleed. He was found to have an atraumatic splenic rupture now status post splenectomy on 05/09 08/20 and extubation. Hospital day #5. 1. Acute splenic rupture, status post splenectomy, present on admission. Active. CT abdomen and pelvis with oral contrast revealed subcapsular splenic hemorrhage with large hemoperitoneum. Patient denies recent history of trauma to his abdomen. Supra-therapeutic INR (4.96); 1.2 prior to surgery. - Hemodynamically stable post-op. - Continue to monitor 2. Acute blood loss anemia, present on admission. Ongoing. - Patient received massive transfusion and in total: 12 U PRBC's, 7U of FFP and 10mg of Vit K. - Continue to monitor hemoglobin and hematocrit closely. - Blood pressures labile while sleeping and the patient is normotensive when awake. 3. Possible acute GI bleed, present on admission. Active. - Patient has a history of multiple GI bleeds with AVM's noted on prior endoscopy. Patient reports melena prior to admission. - H/H significantly improved following urgent splenectomy, which is likely source for acute blood loss anemia. 4. History of mechanical bivalvular replacement. Stable. - Continue holding warfarin in setting of acute bleed and post-op for several more days. - Supra-therapeutic INR on admission (4.96), 1.2 prior to surgery. - Started heparin 24-36 hours post-op per surgeries clearance. - will start warfarin tomorrow if H&H remains stable, will dc heparin drip on the second day of warfarin adminstration as per surgeries recs Chronic Problems: History of Burkitt's lymphoma as a child. Resolved. - Patient now reportedly with recurrence of Hodgkin's lymphoma in his groin. - Required radiation as child which ultimately caused valvular disease. - Discussed the patient with his oncologist Dr. Guardado who recently performed a PET scan which showed no active disease within the spleen. Chronic hepatitis C, present on admission. Presumed stable. 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 - Continue home antivirals. 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 Presumed Stable. High-risk medications: IV hydromorphone Disposition: Pending postsurgical recovery. Several days after warfarin is restarted and INR is therapeutic. . GI Prophylaxis: Proton Pump Inhibitor VTE Prophylaxis: SCDs VTE Mechanical Devices: Intermittant Pneumatic CD Resuscitation Status: CPR: Attempt Resuscitation Artis Stout MD May 16, 2016 15:46
[2016-05-16] MEDS: Pantoprazole 40 mg ER24 Tablet PO SCH (20:49)
[2016-05-16] MEDS ORDERED: 0.9% Sodium Chloride 250 ML ONE (20:56)
[2016-05-17] VITALS (9 sets, daily range): BP systolic 107–123; BP diastolic 54–64; PULSE 63–72; RESP 16–18; O2SAT 95–99
[2016-05-17 00:07] LABS: INR 1.07 ratio
[2016-05-17] MEDS: Sodium Chloride LOK Flush 10 mL Syringe IVFLUSH SCH ×3 (00:30→17:12)
[2016-05-17] MEDS: Heparin 25K Unit/500mL 0.45 NS 25,000 UNIT in IV Premix 1 EACH IV SCH ×2 (02:58→17:40)
[2016-05-17 08:10] LABS: INR 1.07 ratio
[2016-05-17] MEDS: Fluticasone-Salmererol 250-50 Inhaler INHALATION SCH ×2 (08:25→20:30)
[2016-05-17] MEDS: EPCLUSA PO SCH (08:26)
--- NOTE | 2016-05-17 09:02 | PCM.PHAPRO ---
Progress Warfarin Management by Pharmacy: -Indication: pt with aortic and mitral valve replacement in 2012 -Home Med: warfarin 7.5mg daily -Inr Goal: 2.5-3.5 -Concurrent Anticoagulation: Heparin per cardiac infusion protocol -Coag Trends: 05/15 Inr 0.96 warfarin 7.5mg 05/16 Inr 0.99 warfarin 7.5mg 05/17 Inr 1.07 -Plan: pt had been admitted for emergent splenectomy and received phytonadione 10mg iv on 05/08 for supratherapeutic inr of 4.96 AND FFP. pt went to surg on 05/09. heparin infusion was started on 05/11. first dose of warfarin 7.5mg given on 05/15. today, 05/17 will be 3rd dose of resuming home warfarin. expect the effects of phytonadione and FFP to be resolved. will continue with warfarin 7.5mg and monitor. H/H today is 8.7/27.3 Lindsey Pena [facility] May 17, 2016 09:02
[2016-05-17] MEDS: Tiotropium 18mcg/Cap 5 Capsule Inhaler Kit INHALATION SCH (09:39)
[2016-05-17] MEDS: oxyCODONE-Acetamin 5-325 mg Tablet PO PRN ×4 (09:39→22:11)
[2016-05-17] MEDS: Heparin Protocol Boluses IVPUSH PRN (13:30)
[2016-05-17] MEDS ORDERED: Warfarin 5 MG, Warfarin 2.5 MG PO SCH ×2 (17:00)
--- NOTE | 2016-05-17 17:35 | PCM.PNMED ---
Subjective Date of Service May 17, 2016 Subjective Pt seen and examined. Patient had a bowel movement today which is one step closer to discharge. No complaints at the moment. Exam Vital Signs Vital Sign - Last Date Time Temp Pulse Resp B/P Pulse Ox O2 Delivery O2 Flow Rate FiO2 05/17/16 17:13 36.5 63 18 123/64 99 05/17/16 13:36 Room Air 05/13/16 04:56 2.00 Intake and Output 05/16/16 05/16/16 05/17/16 Cumulative From/Thru 15:00 23:00 07:00 05/08/16 17:04 - 05/17/16 05:57 Intake Total 1837 ml 1913 ml 11439 ml Output Total 1175 ml 1350 ml 91790 ml Balance 662 ml 563 ml 9546 ml Intake Oral 1290 ml 1436 ml 51392 ml IV Total 547 ml 477 ml 19311 ml Autotransfusion 1750 ml Packed Cells 3043 ml Output Urine Total 1175 ml 1350 ml 41415 ml Gastric Drainage Total 190 ml Drainage Total 2305 ml Estimated Blood Loss 6000 ml # Voids 7 # Bowel Movements 1 1 Exam General: Somewhat ill-appearing man in no acute distress HEENT: sclerae anicteric, oral mucosa moist Neck: no JVD Chest: clear to auscultation Cardiac: S1S2, II/ SE murmur with prosthetic S2 Abdomen: BS normal, non-tender, incision line with minimal tenderness Extremities: No acute asymmetry or focal swelling Neuro: A&O, cranial nerves symmetric, motor strength and coordination grossly normal IVs and Medications Medications Reviewed: Medications were reviewed in detail Lab and Diagnostics Result Diagram: 05/17/16 1230 05/13/16 0530 Microbiology Blood culture x2 show no growth after 2 days. Repeat blood cultures x2 pending. MRSA screen negative. Sputum culture shows insufficient growth and re -intubation resulted MSSA. . X-Rays, CTs and MRIs X-RAY CHEST ONE VIEW, PORTABLE IMPRESSION: No acute cardio pulmonary disease. Dictated by: Suly Cao M.D. on 05/08/2016 at 18:58 Approved by: Suly Cao M.D. on 05/08/2016 at 18:58 CT ABDOMEN AND PELVIS WITHOUT CONTRAST IMPRESSION: 1. Large amount of hemoperitoneum, which appears to be arising from the spleen, as there is a large amount of subcapsular splenic hemorrhage, as well as a clot inferior to the spleen. 2. Small right pleural effusion. 3. Mild aneurysmal dilatation of the infrarenal abdominal aorta. 4. The previously seen mass adjacent to the right posterior urinary bladder is suboptimally evaluated on the current examination. 5. Findings discussed with Dr. Ayala on 05.09.16 at 1100 hrs. Dictated by: Dede Prado M.D. on 05/09/2016 at 11:21 Approved by: Dede Prado M.D. on 05/09/2016 at 11:21 Assessment & Plan Ron Cárdenas is a 60-year-old male with a history of coronary artery disease status post single-vessel bypass graft, mechanical bivalvular replacement chronically anticoagulated on warfarin, arteriovenous malformation with prior GI bleeding, and hepatitis C who presented to the [facility] ED via EMS for abrupt onset shortness of breath and weakness x1 week who was found to be hypotensive and severely anemic on arrival and was subsequently admitted for possible acute GI bleed. He was found to have an atraumatic splenic rupture now status post splenectomy on 05/09 08/20 and extubation. Hospital day #5. 1. Acute splenic rupture, status post splenectomy, present on admission. Active. CT abdomen and pelvis with oral contrast revealed subcapsular splenic hemorrhage with large hemoperitoneum. Patient denies recent history of trauma to his abdomen. Supra-therapeutic INR (4.96); 1.2 prior to surgery. - Hemodynamically stable post-op. - Continue to monitor - will need vaccinations 2 weeks after discharge 2. Acute blood loss anemia, present on admission. Ongoing. - Patient received massive transfusion and in total: 12 U PRBC's, 7U of FFP and 10mg of Vit K. - Continue to monitor hemoglobin and hematocrit closely. - Blood pressures labile while sleeping and the patient is normotensive when awake. 3. Possible acute GI bleed, present on admission. Active. - Patient has a history of multiple GI bleeds with AVM's noted on prior endoscopy. Patient reports melena prior to admission. - H/H significantly improved following urgent splenectomy, which is likely source for acute blood loss anemia. 4. History of mechanical bivalvular replacement. Stable. - Continue holding warfarin in setting of acute bleed and post-op for several more days. - Supra-therapeutic INR on admission (4.96), 1.2 prior to surgery. - Started heparin 24-36 hours post-op per surgeries clearance. - warfarin started if H&H remains stable, will dc heparin drip on the therapeutic day of warfarin adminstration as per surgeries recs - if patients inr remains stubborn, will consider bridging with lovenox at home Chronic Problems: History of Burkitt's lymphoma as a child. Resolved. - Patient now reportedly with recurrence of Hodgkin's lymphoma in his groin. - Required radiation as child which ultimately caused valvular disease. - Discussed the patient with his oncologist Dr. Guardado who recently performed a PET scan which showed no active disease within the spleen. Chronic hepatitis C, present on admission. Presumed stable. 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 - Continue home antivirals. 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 Presumed Stable. High-risk medications: IV hydromorphone Disposition: Pending postsurgical recovery. Several days after warfarin is restarted and INR is therapeutic. . GI Prophylaxis: Proton Pump Inhibitor VTE Prophylaxis: SCDs VTE Mechanical Devices: Intermittant Pneumatic CD Resuscitation Status: CPR: Attempt Resuscitation Artis Stout MD May 17, 2016 17:35
[2016-05-17] MEDS: Pantoprazole 40 mg ER24 Tablet PO SCH (22:10)
[2016-05-18] MEDS: Sodium Chloride LOK Flush 10 mL Syringe IVFLUSH SCH ×4 (00:30→23:54)
[2016-05-18 05:13] VITALS: BP 106/60; PULSE 71; RESP 16; O2SAT 98
[2016-05-18] MEDS: Heparin 25K Unit/500mL 0.45 NS 25,000 UNIT in IV Premix 1 EACH IV SCH ×2 (06:38→20:45)
[2016-05-18] MEDS: oxyCODONE-Acetamin 5-325 mg Tablet PO PRN ×4 (06:46→21:52)
[2016-05-18 08:01] LABS: INR 1.3 ratio
[2016-05-18] MEDS: Fluticasone-Salmererol 250-50 Inhaler INHALATION SCH ×2 (09:13→21:47)
[2016-05-18] MEDS: Tiotropium 18mcg/Cap 5 Capsule Inhaler Kit INHALATION SCH (09:13)
[2016-05-18] MEDS: EPCLUSA PO SCH (09:15)
[2016-05-18 09:30] VITALS: BP 107/55; PULSE 71; RESP 19; O2SAT 98
[2016-05-18 14:16] VITALS: BP 92/34; PULSE 68; RESP 15; O2SAT 98
--- NOTE | 2016-05-18 16:01 | PCM.PNMED ---
Subjective Date of Service May 18, 2016 Subjective denies any new issues/complaints Exam Vital Signs Vital Sign - Last Date Time Temp Pulse Resp B/P Pulse Ox O2 Delivery O2 Flow Rate FiO2 05/18/16 14:16 37.2 68 15 92/34 98 Room Air 05/13/16 04:56 2.00 Intake and Output 05/17/16 05/17/16 05/18/16 Cumulative From/Thru 15:00 23:00 07:00 05/08/16 17:04 - 05/18/16 06:19 Intake Total 361 ml 152 ml 1516 ml 12105 ml Output Total 850 ml 55713 ml Balance 361 ml 152 ml 666 ml 73723 ml Intake Oral 1040 ml 47737 ml IV Total 361 ml 152 ml 476 ml 87411 ml Autotransfusion 1750 ml Packed Cells 3043 ml Output Urine Total 850 ml 16314 ml Gastric Drainage Total 190 ml Drainage Total 2305 ml Estimated Blood Loss 6000 ml # Voids 7 # Bowel Movements 2 3 General: Alert, Cooperative, No Acute Distress Eyes: Scleral Anicteric Mouth: Mucous Membr Moist/[place] Neck: Supple Chest & Lungs: Chest Wall Normal, Clear to auscultation & percussion Cardiovascular: Regular Rate/Rhythm Abdomen: Non-tender, Non-distended, Normoactive bowel tones, Soft Extremities: No cyanosis/clubbing/edma bilat Neurological: Grossly Neurologically Intact, Normal Speech IVs and Medications Medications Reviewed: Medications were reviewed in detail Lab and Diagnostics Result Diagram: 05/17/16 1230 05/13/16 0530 Microbiology Blood culture x2 show no growth after 2 days. Repeat blood cultures x2 pending. MRSA screen negative. Sputum culture shows insufficient growth and re -intubation resulted MSSA. . X-Rays, CTs and MRIs X-RAY CHEST ONE VIEW, PORTABLE IMPRESSION: No acute cardio pulmonary disease. Dictated by: Suly Cao M.D. on 05/08/2016 at 18:58 Approved by: Suly Cao M.D. on 05/08/2016 at 18:58 CT ABDOMEN AND PELVIS WITHOUT CONTRAST IMPRESSION: 1. Large amount of hemoperitoneum, which appears to be arising from the spleen, as there is a large amount of subcapsular splenic hemorrhage, as well as a clot inferior to the spleen. 2. Small right pleural effusion. 3. Mild aneurysmal dilatation of the infrarenal abdominal aorta. 4. The previously seen mass adjacent to the right posterior urinary bladder is suboptimally evaluated on the current examination. 5. Findings discussed with Dr. Ayala on 05.09.16 at 1100 hrs. Dictated by: Dede Prado M.D. on 05/09/2016 at 11:21 Approved by: Dede Prado M.D. 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 He was found to have an atraumatic splenic rupture now status post splenectomy on 05/09/16 and extubation. 1. Acute splenic rupture, status post splenectomy, present on admission. - CT abdomen and pelvis with oral contrast revealed subcapsular splenic hemorrhage with large hemoperitoneum. - Patient denies recent history of trauma to his abdomen. - Hemodynamically stable post-op. - Continue to monitor - will need vaccinations 2 weeks after discharge 2. Acute blood loss anemia, present on admission. Ongoing. - Patient received massive transfusion and in total: 12 U PRBC's, 7U of FFP and 10mg of Vit K. - Continue to monitor hemoglobin and hematocrit closely. - Blood pressures labile while sleeping and the patient is normotensive when awake. 3. Possible acute GI bleed, present on admission. - Patient has a history of multiple GI bleeds with AVM's noted on prior endoscopy. Patient reports melena prior to admission. - H/H significantly improved following urgent splenectomy, which is likely source for acute blood loss anemia. - no active GI bleed noted here so far. f/u closely as he goes back on Coumadin 4. History of mechanical bivalvular replacement. - Supra-therapeutic INR on admission (4.96), 1.2 prior to surgery. - Started heparin 24-36 hours post-op per surgeries clearance. - warfarin started if H&H remains stable, will dc heparin drip on the therapeutic day of warfarin administration as per surgeries recs - if INR continue to remain slow in rise in next day or so may consider bridging with Lovenox at home which he has done before Chronic Problems: History of Burkitt's lymphoma as a child. Resolved. - Patient now reportedly with recurrence of Hodgkin's lymphoma in his groin. - Required radiation as child which ultimately caused valvular disease. - His oncologist is Dr. Guardado who recently performed a PET scan which showed no active disease within the spleen. Chronic hepatitis C, present on admission. Presumed stable. 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 - Continue home antivirals. 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 Presumed Stable. Dispo: pending therapeutic INR vs consideration for d/c home on Lovenox bridge to Coumadin GI Prophylaxis: Proton Pump Inhibitor VTE Prophylaxis: SCDs VTE Mechanical Devices: Intermittant Pneumatic CD Resuscitation Status: CPR: Attempt Resuscitation Time spent 35 min Capo Srivastava May 18, 2016 16:00
[2016-05-18] MEDS ORDERED: Warfarin 5 MG, Warfarin 2.5 MG PO ONE ×2 (17:00)
[2016-05-18 21:26] VITALS: BP 127/67; PULSE 74; RESP 16; O2SAT 98
[2016-05-18] MEDS: Pantoprazole 40 mg ER24 Tablet PO SCH (21:48)
[2016-05-19 04:55] LABS: INR 1.55 ratio
[2016-05-19 05:32] LABS: Mean Corpuscular Hemoglobin 28.2 pg (27.0-35.0); Mean Corpuscular Volume 91.7 fL (81-100)
[2016-05-19 05:45] VITALS: BP 122/64; PULSE 65; RESP 20; O2SAT 98
[2016-05-19] MEDS: oxyCODONE-Acetamin 5-325 mg Tablet PO PRN ×3 (06:25→16:34)
[2016-05-19] MEDS: Tiotropium 18mcg/Cap 5 Capsule Inhaler Kit INHALATION SCH (08:56)
[2016-05-19] MEDS: Fluticasone-Salmererol 250-50 Inhaler INHALATION SCH (08:56)
[2016-05-19] MEDS: EPCLUSA PO SCH (08:57)
[2016-05-19] MEDS: Sodium Chloride LOK Flush 10 mL Syringe IVFLUSH SCH ×2 (08:57→16:34)
[2016-05-19 11:40] VITALS: BP 132/62; PULSE 75; RESP 16; O2SAT 98
[2016-05-19] MEDS: Heparin 25K Unit/500mL 0.45 NS 25,000 UNIT in IV Premix 1 EACH IV SCH (12:23)
[2016-05-19] MEDS ORDERED: LOV80 SUBQ (13:46)
[2016-05-19] MEDS ORDERED: OXYC1TAB24 PO (13:54)
--- NOTE | 2016-05-19 13:57 | PCM.DIMED ---
Discharge Instructions Date of Service May 19, 2016 Dates of Hospitalization May 08, 2016 at 19:20 Discharge Diagnosis Discharge Diagnosis splenic hemorrhage, nontraumatic Medication Instructions lovenox 70U BID until INR is therapeutic a 2.5-3.5 check Hg and ensure that it is greater than 8.5 Diet No restrictions Activity Other (less than 10lb lifting x 2 months) Call your provider Bleeding, Other (low blood pressure dizziness) Patient Instructions Go to Dr Guardado for INR check and Hg check on saturday Follow-up Provider: Mary Pineda MD Follow-up with PCP in: 2 weeks (triple post splenectomy vaccinations) Provider: Josue Ovalle MD Follow-up in: 5 weeks (post op check) Christian Olivares MD May 19, 2016 13:39
--- NOTE | 2016-05-19 14:06 | PCM.DC.MED ---
Discharge Summary Date of Service May 19, 2016 Dates of Hospitalization Date of Hospital Admission May 08, 2016 at 19:20 Date of Discharge: May 19, 2016 Providers: Admitting Physician: Goyo Mcfadden MD Primary Care Physician: Mary Pineda MD Attending Physician: Goyo Mcfadden MD Diagnosis at Time of Discharge Diagnosis at Time of Discharge splenic hemorrhage, nontraumatic, significant blood loss s/p massive transfusions hep C bivalvular mechanical valve, resumed anticoagulation post op Consultations vasquez, jermey general surgeon Procedures XRay, CTs & MRIs X-RAY CHEST ONE VIEW, PORTABLE IMPRESSION: No acute cardio pulmonary disease. Dictated by: Suly Cao M.D. on 05/08/2016 at 18:58 Approved by: Suly Cao M.D. on 05/08/2016 at 18:58 CT ABDOMEN AND PELVIS WITHOUT CONTRAST IMPRESSION: 1. Large amount of hemoperitoneum, which appears to be arising from the spleen, as there is a large amount of subcapsular splenic hemorrhage, as well as a clot inferior to the spleen. 2. Small right pleural effusion. 3. Mild aneurysmal dilatation of the infrarenal abdominal aorta. 4. The previously seen mass adjacent to the right posterior urinary bladder is suboptimally evaluated on the current examination. 5. Findings discussed with Dr. Ayala on 05.09.16 at 1100 hrs. Dictated by: Dede Prado M.D. on 05/09/2016 at 11:21 Approved by: Dede Prado M.D. on 05/09/2016 at 11:21 Brief History Pt is a 60 y/o male anticoagulated on Coumadin w/ a hx of CHF, CAD, HTN, hyperlipidemia, valve replacements, presenting to the ED via EMS due to SOB onset 1300 today. He states he is chronically short of breath. He has been generally weak for 7 days and has been unable to get out of bed. He was found to be hunched over by EMS without a radial pulse. He was initially hypotensive in the 70s but improved to 118 after normal saline. He c/o associated dyspnea on exertion, numbness of the fingertips which is new. He denies CP, bloody or melena stool. He does not smoke. Hospital Course 60-year-old male with a history of CAD s/p single-vessel bypass graft, mechanical bivalvular replacement chronically anticoagulated on warfarin, arteriovenous malformation with prior GI bleeding, and hepatitis C who presented to the [facility] ED via EMS for abrupt onset shortness of breath and weakness x1 week who was found to be hypotensive and severely anemic on arrival and was subsequently admitted for possible acute GI bleed. He was found to have an atraumatic splenic rupture, splenectomy on 05/09/16 and extubated. 1. Acute splenic rupture, status post splenectomy, present on admission. - CT abdomen and pelvis with oral contrast revealed subcapsular splenic hemorrhage with large hemoperitoneum. - Patient denies recent history of trauma to his abdomen. - Hemodynamically stable post-op. - vaccinations 2 weeks after discharge f/u PCP - ambulatory, eager to go home, tolerating diet 2. Acute blood loss anemia, present on admission. resolved - Patient received massive transfusion and in total: 12 U PRBC's, 7U of FFP and 10mg of Vit K. - Continue to monitor hemoglobin and hematocrit at coumadin clinic/Dr. cruz; s office - Blood pressures labile while sleeping and the patient is normotensive when awake, stable overnight 05/18-05/19, mother at home to monitor patient, patient to return if lightheaded or dizzy. 3. Possible acute GI bleed, present on admission. with negative guiac 05/17/16 and stable Hg post op - Patient has a history of multiple GI bleeds with AVM's noted on prior endoscopy. Patient reports melena prior to admission. - H/H significantly improved following urgent splenectomy, which is likely source for acute blood loss anemia. - no active GI bleed noted here so far. f/u closely as he goes back on Coumadin 4. History of mechanical bivalvular replacement. - Supra-therapeutic INR on admission (4.96), 1.2 prior to surgery. currently 1.5. patient comfortable w/ lovenox bridge for home w/ follow up w/ Dr. Cruz' s coumadin clinic check in 2 days - Started heparin 24-36 hours post-op per surgeries clearance. - warfarin started if H&H remains stable, will dc heparin drip on the therapeutic day of warfarin administration as per surgeries recs but INR continued to remain slow in rise home with bridging with Lovenox which he has done before Chronic Problems: History of Burkitt's lymphoma as a child. Resolved. - Patient now reportedly with recurrence of Hodgkin's lymphoma in his groin. - Required radiation as child which ultimately caused valvular disease. - His oncologist is Dr. Cruz who recently performed a PET scan which showed no active disease within the spleen. Chronic hepatitis C, present on admission. Presumed stable. 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 - Continue home antivirals. Recurrent MALT lymphoma 2006 of the right orbit treated with radiation. Presumed Stable. Exam Vital Signs (Last) Date Time Temp Pulse Resp B/P Pulse Ox O2 Delivery O2 Flow Rate FiO2 05/19/16 11:40 36.5 75 16 132/62 98 Room Air 05/13/16 04:56 2.00 Test 05/08/16 17:18 05/08/16 18:32 05/09/16 14:10 05/09/16 20:20 Total Creatine Kinase 61U/L (21-232) Creatine Kinase MB 2.1ng/mL (0.0-10.4) Creatine Kinase MB % 3.4% (0.0-5.0) Troponin T < 0.010ug/L (0.0-0.011) Pro-B-Type Natriuretic Peptide 2170pg/mL (0-210) Hold Purple Top Tube Received (Received) Lactic Acid Level 1.1mmol/L (0.4-2.0) Fibrinogen 158mg/dL (157-380) Test 05/10/16 03:00 05/11/16 04:45 05/12/16 10:40 05/13/16 05:30 Nucleated Red Blood Cells 1/100 WBC (0-24) HIV (1&2) Ag and Ab, 4th Generation Non reactive (Non Reactive) Phosphorus Level 2.2mg/dL (2.5-4.9) Body Fluid Amylase 17U/L Neutrophils (%) (Auto) 69.4% (40-74) Lymphocytes (%) (Auto) 10.0% (14-46) Monocytes (%) (Auto) 14.2% (4-12) Eosinophils (%) (Auto) 5.9% (0-5) Basophils (%) (Auto) 0.2% (0-3) Magnesium Level 1.7mg/dL (1.6-2.6) Total Bilirubin 0.4mg/dL (0.0-1.2) Aspartate Amino Transf (AST/SGOT) 18U/L (0-50) Alanine Aminotransferase (ALT/SGPT) 8U/L (0-44) Alkaline Phosphatase 43U/L (25-160) Total Protein 4.4g/dL (6.4-8.4) Albumin 2.5g/dL (3.4-5.0) Procalcitonin < 0.05ng/mL (See Comment) Test 05/19/16 03:42 05/19/16 05:00 05/19/16 10:04 Prothrombin Time 16.7sec (8.1-12.5) Prothromb Time International Ratio 1.55ratio White Blood Count 8.9th/mm3 (3.8-10.1) Red Blood Count 3.01mil/mm3 (4.40-5.80) Hemoglobin 8.5g/dL (13.8-17.2) Hematocrit 27.6% (41.0-50.0) Mean Corpuscular Volume 91.7fL (81-100) Mean Corpuscular Hemoglobin 28.2pg (27.0-35.0) Mean Corpuscular Hemoglobin Concent 30.8% (32.0-37.0) Red Cell Distribution Width 15.4% (12.3-15.4) Platelet Count 596bil/L (150-400) Sodium Level 139mEq/L (134-144) Potassium Level 4.2mEq/L (3.5-5.2) Chloride Level 106mEq/L (97-108) Carbon Dioxide Level 24mmol/L (18-29) Blood Urea Nitrogen 25mg/dL (8-27) Creatinine 0.99mg/dL (0.76-1.27) Estimat Glomerular Filtration Rate 82mL/min (>59) Glucose Level 79mg/dL (60-99) Calcium Level 8.7mg/dL (8.5-10.1) Activated Partial Thromboplast Time 115.1sec (22.8-33.0) Microbiology Results Blood culture x2 show no growth after 2 days. Repeat blood cultures x2 pending. MRSA screen negative. Sputum culture shows insufficient growth and re -intubation resulted MSSA. . Discharge Medications Discharge Medications Aclidinium [place] (Tudorza Pressair) 400 Mcg Aer.pow.ba 1 PUFF INH BID ( Reported) Aspirin (Aspirin) 81 Mg Tablet 81 MG PO every other day (Reported) Atorvastatin (Lipitor) 40 Mg Tablet 40 MG PO HS (Reported) Carvedilol (Carvedilol) 6.25 Mg Tablet 6.25 MG PO BID (Reported) Enoxaparin (Lovenox) 80 Mg/0.8 Ml Syringe 80 MG SUBQ Q12 Prescribed by: WILBERTO HINKLE MD Ferrous Sulfate (Ferrous Sulfate) 325 Mg Tablet 325 MG PO BID (Reported) Fluoxetine (Fluoxetine) 20 Mg Capsule 60 MG PO DAILY (Reported) Furosemide (Furosemide) 20 Mg Tab 20 MG PO DAILY (Reported) Lisinopril (Lisinopril) 5 Mg Tablet 5 MG PO DAILY (Reported) Mometasone/Formoterol (Dulera 200 Mcg/5 Mcg Inhaler) 13 Gm Hfa.aer.ad 2 PUFFS INH BID (Reported) Pantoprazole DR (Pantoprazole DR) 40 Mg Tablet.dr 40 MG PO DAILY (Reported) Sofosbuvir/Velpatasvir (Epclusa 400 mg-100 mg Tablet) 400 Mg-100 Mg Tablet 1 EACH PO DAILY (Reported) Temazepam (Temazepam) 30 Mg Cap 30 MG PO HS (Reported) Trazodone (Trazodone) 100 Mg Tablet 200 MG PO HS (Reported) Warfarin Sodium (Warfarin Sodium) 5 Mg Tablet 7.5 MG PO every other day ( Reported) Warfarin Sodium (Coumadin) 5 Mg Tablet 5 MG PO every other day (Reported) As needed Docusate Sodium (Colace) 100 Mg Capsule 100 MG PO BID PRN PRN For Constipation ( Reported) Nitroglycerin SL (Nitrostat) 0.4 Mg Tab.subl 0.4 MG SL Q5MIN PRN PRN For Chest Pain (Reported) Quetiapine Fumarate (Seroquel) 50 Mg Tablet 50 MG PO BID PRN PRN For Anxiety ( Reported) Ranitidine (Ranitidine) 150 Mg Capsule 150 MG PO DAILY PRN PRN For Dyspepsia or Heartburn (Reported) oxyCODONE-Acetaminophen 5-325 mg (oxyCODONE-Acetaminophen 5-325 mg) 1 Each Tablet 1 TAB PO Q4H PRN PRN For Pain Prescribed by: WILBERTO HINKLE MD Additional med instructions lovenox 80U BID until INR is therapeutic a 2.5-3.5 check Hg and ensure that it is greater than 8.5 percocet #30 total Followup Plan Disposition: home Follow-up plan pcp 2 weeks for Geo for inr/hg check 2 days Vasquez for post op check 5 weeks Discharge Diet: No restrictions Discharge Activity: Other (less than 10lb lifting x 2 months) Patient Instructions Go to Dr Cruz for INR check and Hg check on saturday Follow-up Provider: Mary Pindea MD Follow-up with PCP in: 2 weeks (triple post splenectomy vaccinations) Provider: Jeremy Ovalle MD Follow-up in: 5 weeks (post op check) Time spent greater than 30 min copies to: Jeremy Ovalle MD; Dione Cruz MD; Mary Pineda MD, Nae-Hwa MD May 19, 2016 14:06
[2016-05-19] MEDS ORDERED: Warfarin 5 MG, Warfarin 2.5 MG PO ONE ×2 (17:00)
== END 2016-05-19 17:38 | disposition home or self-care (01) | DRG 799 ==
LOC: EDBD 16:53 → EDUNIT# 16:53 → SED 16:53 → PCC 19:20 → CCU 05-09 09:50 → PCC 05-11 06:13 → OSC 05-12 20:06
PROVIDERS: ADMIT Hospitalist; ATTEND Hospitalist
PROC: 30233K1 Transfusion of Nonautologous Frozen Plasma into Peripheral Vein, Percutaneous Approach (ICD-10-PCS; 2016-05-08)
PROC: 30233N1 Transfusion of Nonautologous Red Blood Cells into Peripheral Vein, Percutaneous Approach (ICD-10-PCS; 2016-05-08)
PROC: 5A1945Z Respiratory Ventilation, 24-96 Consecutive Hours (ICD-10-PCS; 2016-05-09)
PROC: 4A033R1 Measurement of Arterial Saturation, Peripheral, Percutaneous Approach (ICD-10-PCS; 2016-05-09)
PROC: 30233K1 Transfusion of Nonautologous Frozen Plasma into Peripheral Vein, Percutaneous Approach (ICD-10-PCS; 2016-05-09)
PROC: 30233N1 Transfusion of Nonautologous Red Blood Cells into Peripheral Vein, Percutaneous Approach (ICD-10-PCS; 2016-05-09)
PROC: 07TP0ZZ Resection of Spleen, Open Approach (ICD-10-PCS; principal; 2016-05-09 11:45)
DX: D73.5 Infarction of spleen (principal); R57.1 Hypovolemic shock; J96.01 Acute respiratory failure with hypoxia; D62 Acute posthemorrhagic anemia; N17.9 Acute kidney failure, unspecified; I50.22 Chronic systolic (congestive) heart failure; E87.2 Acidosis; N18.3 Chronic kidney disease, stage 3 (moderate); I12.9 Hypertensive chronic kidney disease with stage 1 through stage 4 chronic kidney disease, or unspecified chronic kidney disease; E78.5 Hyperlipidemia, unspecified; Z79.01 Long term (current) use of anticoagulants; Z95.2 Presence of prosthetic heart valve; K75.89 Other specified inflammatory liver diseases; B19.20 Unspecified viral hepatitis C without hepatic coma; E87.5 Hyperkalemia; Z92.3 Personal history of irradiation; Z87.891 Personal history of nicotine dependence; Z85.72 Personal history of non-Hodgkin lymphomas; D69.6 Thrombocytopenia, unspecified; R79.1 Abnormal coagulation profile

== ENCOUNTER 2016-07-01 11:37 | Emergency (ER) | payer MEDICARE ==
[~2016-07-01] VITALS: Ht 175.3 cm; Wt 65.9 kg
[~2016-07-01 11:37] MED LIST changes: +FUR20 PO; +LOV80 SUBQ; -METO25TA6 PO; +MOME13HF INH; -MOME13HF2 IH; -NYST1000 PO; +OXYC1TAB24 PO; +RANI150C4 PO; +RES30 PO; -SENN-133 PO; +SOFO1TAB PO; +TRAZ-118 PO; +WARF5TAB PO
[2016-07-01 11:39] VITALS: BP 143/68; RESP 10; O2SAT 100
--- NOTE | 2016-07-01 12:25 | ED.REPORT ---
HPI-Facial Injury Date of Service Jul 01, 2016 ED Provider: Jerry Benton MD History of Present Illness: There is no template for nosebleed Pt is a 60 year old male anticoagulated on Warfarin with hx of 2 mechanical cardiac valves, HTN, CAD, CHF and B-cell lymphoma presenting to the ED complaining of epistaxis from the right nare onset at 2100 yesterday. He denies dizziness, lightheadedness, or any other symptoms at this time. He reports that he thinks his INR is high and just had his Coumadin measured 3 wks ago. Pt states that this has happened before, and that his PCP usually cauterizes the area. Pt reports that he put A-ferin on a paper towel and into his nose without relief. Nursing Notes Stated Complaint: NOSEBLEED Chief Complaint: ENT & Mouth Nursing Notes Reviewed: Yes ([facility], meds reconciled, on Coumadin) Allergies: Coded Allergies: No Known Allergies (Verified Allergy, Unknown, 05/08/16) Scheduled Aspirin (Aspirin) 81 Mg Tablet 81 MG PO every other day Atorvastatin (Lipitor) 40 Mg Tablet 40 MG PO HS Carvedilol (Carvedilol) 6.25 Mg Tablet 6.25 MG PO BID Ferrous Sulfate (Ferrous Sulfate) 325 Mg Tablet 325 MG PO BID Fluoxetine (Fluoxetine) 20 Mg Capsule 60 MG PO DAILY Furosemide (Furosemide) 20 Mg Tab 20 MG PO DAILY Lisinopril (Lisinopril) 5 Mg Tablet 5 MG PO DAILY Pantoprazole DR (Pantoprazole DR) 40 Mg Tablet.dr 40 MG PO DAILY Sofosbuvir/Velpatasvir (Epclusa 400 mg-100 mg Tablet) 400 Mg-100 Mg Tablet 1 EACH PO DAILY Temazepam (Temazepam) 30 Mg Cap 30 MG PO HS Trazodone (Trazodone) 100 Mg Tablet 100 MG PO HS Warfarin Sodium (Warfarin Sodium) 5 Mg Tablet 7.5 MG PO every other day Warfarin Sodium (Coumadin) 5 Mg Tablet 5 MG PO every other day General Time Seen by Provider: 12:10 Chief Complaint Nose bleed Hx Obtained From: Patient Arrived By: Walk-in Onset Occurred: Yesterday Symptom Duration: Since onset Progression Since Onset: Unchanged Location: : Nose Severity: Current: No pain currently Severity: Maximum: No pain Recent Healthcare: No recent hospitalization, Recent doctor visit Similar Sx Previous: Yes Risk Factors IC Bleed Risk Stratification Age (<1 yr or >60 yrs) Blood thinners RF Statements: Risk factors reviewed Past Medical History Past Medical History Notes: PCP: Mary Pineda M.D. Oncologist for Lymphoma Dr. 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 Physical Exam Initial Vital Signs Vital Signs (First) Date Time Temp Pulse Resp B/P Pulse Ox O2 Delivery O2 Flow Rate FiO2 07/01/16 11:39 36.6 72 10 143/68 100 Room Air Initial VS: Reviewed, Vital signs normal General/Constitutional: Well-developed, Well-nourished Respiratory: Breath sounds normal, Clear to auscultation, No respiratory distress Cardiovascular: Regular rate & rhythm, Heart sounds normal, Intact distal pulses Abdomen / GI: Soft, Non-tender, No guarding, No rebound, No distention Extremities: Vascular intact, Neuro intact, No swelling, No tenderness Skin: Warm, Dry, No cyanosis Psychiatric: Mood/affect normal, Behavior normal, Normal thought content Head / Eyes: Atraumatic, Normocephalic, PERRL ENT: Airway patent, Mucous membranes moist, Pharynx NL Nose: Positive: Anterior bleed, Epistaxis moderate, Epistaxis right Neck: Atraumatic, Supple Neurologic: Oriented X3, Speech NL, No motor deficits, No sensory deficits Interpretation & Diagnostics Lab Results Interpretation Result Diagram: 07/01/16 1225 07/01/16 1225 Test 07/01/16 12:25 White Blood Count 8.9th/mm3 (3.8-10.1) Red Blood Count 3.16mil/mm3 (4.40-5.80) Hemoglobin 9.2g/dL (13.8-17.2) Hematocrit 29.0% (41.0-50.0) Mean Corpuscular Volume 91.8fL (81-100) Mean Corpuscular Hemoglobin 29.1pg (27.0-35.0) Mean Corpuscular Hemoglobin Concent 31.7% (32.0-37.0) Red Cell Distribution Width 16.8% (12.3-15.4) Platelet Count 325bil/L (150-400) Neutrophils (%) (Auto) 69.8% (40-74) Lymphocytes (%) (Auto) 13.8% (14-46) Monocytes (%) (Auto) 11.8% (4-12) Eosinophils (%) (Auto) 4.1% (0-5) Basophils (%) (Auto) 0.4% (0-3) Prothrombin Time 36.9sec (8.1-12.5) Prothromb Time International Ratio 3.36ratio Sodium Level 139mEq/L (134-144) Potassium Level 5.7mEq/L (3.5-5.2) Chloride Level 103mEq/L (97-108) Carbon Dioxide Level 24mmol/L (18-29) Blood Urea Nitrogen 46mg/dL (8-27) Creatinine 1.08mg/dL (0.76-1.27) Estimat Glomerular Filtration Rate 74mL/min (>59) Glucose Level 100mg/dL (60-99) Calcium Level 9.0mg/dL (8.5-10.1) Total Bilirubin 0.3mg/dL (0.0-1.2) Aspartate Amino Transf (AST/SGOT) 18U/L (0-50) Alanine Aminotransferase (ALT/SGPT) 13U/L (0-44) Alkaline Phosphatase 65U/L (25-160) Total Protein 6.7g/dL (6.4-8.4) Albumin 4.0g/dL (3.4-5.0) Hold Love Top Tube Received (Received) Lab Results Interpretation: CBC chronic anemia CMP borderline hyperkalemia Renal function normal Procedures Epistaxis Management Procedure Performed by: ED physician Consent / Setup / Site Prep: Informed consent provided, Time-out performed Side and Location of Bleed: Nare right - anterior Pre-medication and Procedure: Oxymetazoline, Lidocaine, Rapid rhino inserted (intial 5.5cm attempted, unsuccessful, then 4.5cm placed with success) Post-Procedure / Complications: Bleeding stopped, No complications, Patient stable, Tolerated procedure well Re-Eval/Medical Decision Med Decision/Clinical Course This is a 60-year-old male on warfarin for mechanical heart valve developed a nosebleed last night. He has had this happen intermittently insulin followed by Dr. cevallos in the past. He could not get the bleeding to stop came to the ED. Also status post a splenectomy, and is being followed for lymphoma but not on current treatment, as he is finishing treatment for hepatitis C. he otherwise feels well except for the nosebleed which is isolated from the right nares. Denies any dizziness, lightheadedness or additional symptoms. He chronically appears well has mild epistaxis from the right naris. Was initially controlled briefly with Afrin and bupivacaine with epinephrine. But on the observation period post-initial stasis, he had recurrence. At this point packing Rhino Rocket was placed. I attempted placement of a 5.5 cm device , but was unsuccessful due to resistance, in and up using a 4 cm anterior device , with insufflation-but worked with control the hemostasis. Patient's INR is on the upper end of therapeutic. 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 He is chronically anemic, and otherwise doing well-so the plan is to leave the packing in place, and have the patient follow up with ENT in the next several days for reevaluation, and have him hold his warfarin to bring it down slightly. I contacted Dr. Parrish stitch bonder machine operator helper to facilitate the follow-up. Patient is discharged after a period of observation and maintain hemostasis following the nasal tamponade device placement. Routine and discharge precautions reviewed, patient is discharged in improved condition. Source of Hx: Old records Re-Evaluation/Progress #1: Time of Eval: 12:53 Patient Status: Condition improved Re-Evaluation/Progress Note: Pt bleeding controlled. Still waiting for INR. Re-Evaluation/Progress #2: Time of Eval: 13:18 Patient Status: Condition improved Re-Evaluation/Progress Note: Pt has resumed bleeding. Nose clamp put back in place. Placed packing in right nostril. Re-Evaluation/Progress #3: Time of Eval: 13:41 Patient Status: Condition improved Re-Evaluation/Progress Note: Remmoved a bit of air from the nasal packing. Consultation : Referral / Consult Name: Reyes Parrish MD Call Returned at: 13:29 Note: Dr. Parrish will facilitate follow up. Counseled Regarding: Diagnosis, Lab results, Need for follow-up, When/why to return to ED Discharge & Departure Impression: Primary Impression: Anterior epistaxis Additional Impression: Anticoagulated on warfarin Disposition: Home Discharge Condition All VS Reviewed: Yes Condition: Improved Additional Instructions: 1. Your INR today was 3.36. 2. Hold your warfarin today and tomorrow. 3. Call Dr. Cevallos's office tomorrow for an appointment within the next few days. 4. Leave the 4cm packing in place 5. Return if new or worsening symptoms Referrals: Mary Pineda MD (PCP) Don Cevallos MD Attestation Portions of this note were transcribed by Amber Tiwari. I, Dr. Benton personally performed the history, physical exam and medical decision-making; I reviewed and confirmed the accuracy of the information in the transcribed note. Signed by: [place], 07/01/2016 and 1419. copies to: Don Cevallos MD; Mary Pineda MD, Matthew F MD Jul 01, 2016 12:25 AMBER TIWARI Jul 01, 2016 12:28
[2016-07-01 12:37] LABS: BASOPHILS % (AUTO) 0.4 % (0-3); EOSINOPHILS % (AUTO) 4.1 % (0-5); MONOCYTES % (AUTO) 11.8 % (4-12); Mean Corpuscular Hemoglobin 29.1 pg (27.0-35.0); Mean Corpuscular Volume 91.8 fL (81-100); NEUTROPHILS % (AUTO) 69.8 % (40-74); Platelet Count 325 bil/L (150-400)
[2016-07-01 12:51] LABS: INR 3.36 ratio
[2016-07-01 14:19] VITALS: BP 128/59; PULSE 65; RESP 16; O2SAT 99
[2016-07-01 14:27] VITALS: BP 128/59; PULSE 65; RESP 16; O2SAT 99
== END 2016-07-01 14:28 | disposition home or self-care (01) ==
LOC: SED 11:37
DX: R04.0 Epistaxis (principal); I11.0 Hypertensive heart disease with heart failure; I50.9 Heart failure, unspecified; I25.10 Atherosclerotic heart disease of native coronary artery without angina pectoris; E78.5 Hyperlipidemia, unspecified; F17.200 Nicotine dependence, unspecified, uncomplicated; Z95.1 Presence of aortocoronary bypass graft; Z95.4 Presence of other heart-valve replacement; Z79.82 Long term (current) use of aspirin; Z79.01 Long term (current) use of anticoagulants